=== PATIENT | male | born 1970 | race American Indian/Alaskan Native ===

== ENCOUNTER 2016-12-30 11:58 | Emergency (ER) | payer MEDICAID ==
--- NOTE | 2016-12-30 14:08 | Emergency Department Report ---
ED General Adult HPI - General Chief complaint: Skin Rash Stated complaint: RASH Time Seen by Provider: 12/30/16 13:43 Source: patient Mode of arrival: Ambulatory Limitations: No Limitations - History of Present Illness Initial comments: PT c/o rash to his groin x 2 weeks. PT states the rash itches all the time. PT states he tried to dry out the rash with rubbing alcohol and peroxide. PT states he tried using an otc antifungal cream for 2-3 days. PT states the fungal cream helped the itching for a day but did not clear up the rash, so he stopped using it. PT denies having this rash before. PT denies close contacts with rash MD Complaint: rash Onset/Timin -: Gradual, week(s) Location: genitals Quality: constant, other (itching ) Improves with: none Associated Symptoms: denies: fever/chills, loss of appetite, nausea/vomiting - Related Data Home Medications Medication Instructions Recorded Confirmed Last Taken Gabapentin [Neurontin] 100 mg PO Q8HR 10/13/15 02/28/16 10/13/15 yes Previous Rx's Medication Instructions Recorded Last Taken Type Nystatin [Nystop Powder] 1 applicatio TP TID 14 Days 12/30/16 Unknown Rx hydrOXYzine PAMOATE [Vistaril] 25 mg PO Q6HR PRN #12 capsule 12/30/16 Unknown Rx Allergies Allergy/AdvReac Type Severity Reaction Status Date / Time nalbuphine HCl [From Nubain] Allergy Vomiting Verified 05/15/13 18:48 ED Review of Systems ROS: Stated complaint: RASH Other details as noted in HPI Comment: All other systems reviewed and negative Constitutional: denies: chills, fever Gastrointestinal: denies: abdominal pain, nausea, vomiting Skin: rash, change in color ED Past Medical Hx - Past Medical History Previous Medical History?: Yes Hx Hypertension: No Hx CVA: No Hx Heart Attack/AMI: No Hx Congestive Heart Failure: No Hx Diabetes: No Hx Deep Vein Thrombosis: No Hx Pulmonary Embolism: No Hx GERD: Yes (gastric ulcers) Hx Liver Disease: No Hx Renal Disease: No Hx Sickle Cell Disease: No Hx Arthritis: Yes Hx Headaches / Migraines: Yes (MIGRAINES) Hx Seizures: No Hx Kidney Stones: No Hx Psychiatric Treatment: No Hx Asthma: No Hx COPD: No Hx Tuberculosis: No Hx Dementia: No Hx HIV: No Additional medical history: Lumbar neuropathy. sciatica. Mild scoliosis - Surgical History Past Surgical History?: Yes Hx Coronary Stent: No Hx Open Heart Surgery: No Hx Pacemaker: No Hx Internal Defibrillator: No Hx Cholecystectomy: No Hx Appendectomy: No Hx Breast Surgery: No Additional Surgical History: right foot surgery. Bilateral hernia repair - Social History Smoking Status: Current Every Day Smoker Substance Use Type: Alcohol - Medications Home Medications: Home Medications Medication Instructions Recorded Confirmed Last Taken Type Gabapentin [Neurontin] 100 mg PO Q8HR 10/13/15 02/28/16 10/13/15 History yes Nystatin [Nystop Powder] 1 applicatio TP TID 14 Days 12/30/16 Unknown Rx hydrOXYzine PAMOATE [Vistaril] 25 mg PO Q6HR PRN #12 capsule 12/30/16 Unknown Rx ED Physical Exam - General Limitations: No Limitations General appearance: alert, in no apparent distress - Head Head exam: Present: atraumatic, normocephalic, normal inspection - Eye Eye exam: Present: normal appearance. Absent: conjunctival injection - ENT ENT exam: Present: normal exam, normal external ear exam - Neck Neck exam: Present: normal inspection, full ROM - Respiratory Respiratory exam: Absent: respiratory distress - Cardiovascular Cardiovascular Exam: Present: regular rate, normal rhythm - GI/Abdominal GI/Abdominal exam: Present: soft, hernia (L inguinal swelling, soft, reduable, not ttp ). Absent: tenderness - External exam: Present: erythema (to thighs and scrotum ), other (no vesicles or ulceres ) - Extremities Exam Extremities exam: Present: normal inspection, full ROM - Back Exam Back exam: Present: normal inspection - Neurological Exam Neurological exam: Present: alert, oriented X3 - Psychiatric Psychiatric exam: Present: normal affect, normal mood - Skin Skin exam: Present: warm, dry, intact, erythema ED Course Vital Signs 12/30/16 12/30/16 12:23 14:23 Temperature 97.5 F L Pulse Rate 67 72 Respiratory 16 16 Rate Blood Pressure 126/78 Blood Pressure 120/66 [Right] O2 Sat by Pulse 100 100 Oximetry - Reevaluation(s) Reevaluation #1: 12/30/16 14:14 PT aware of dx and plan of care. PT aware that antifungals typically need 2 weeks to treat rash. - Pulse Oximetry Interpretation Digit-Finger Initial Pulse Oximetry Readin Actions Taken: none ED Medical Decision Making - Differential Diagnosis tinea, hernia Critical Care Time: No Critical care attestation.: If time is entered above; I have spent that time in minutes in the direct care of this critically ill patient, excluding procedure time. ED Disposition Clinical Impression: Jock itch, Inguinal mass Disposition: DISCHARGED TO HOME OR SELFCARE Is pt being admited?: No Does the pt Need Aspirin: No Condition: Stable Instructions: Inguinal Hernia (ED), Jock Itch (ED) Additional Instructions: Follow up with PCP in 3-5 days Follow up with surgeon for her hernia Use the anti fungal powder for 2 weeks No driving or ETOH after taking Vistaril Prescriptions: hydrOXYzine PAMOATE [Vistaril] 25 mg PO Q6HR PRN #12 capsule PRN Reason: Itching Nystatin [Nystop Powder] 1 applicatio TP TID 14 Days Referrals: RUDOLPH HAMMONDS MD [Staff Physician] - 3-5 Days LINDA OTT MD, PHD [Staff Physician] - 3-5 Days PRIMARY CARE, [Primary Care Provider] - 3-5 Days Time of Disposition: 14:17
[2016-12-30 14:23] VITALS: BP 120/66
== END 2016-12-30 14:24 | disposition home or self-care (01) ==
LOC: ED 11:58
DX: B35.6 Tinea cruris (principal); R19.00 Intra-abdominal and pelvic swelling, mass and lump, unspecified site; K21.9 Gastro-esophageal reflux disease without esophagitis; G43.909 Migraine, unspecified, not intractable, without status migrainosus; F17.200 Nicotine dependence, unspecified, uncomplicated
CPT/HCPCS: 99282

== ENCOUNTER 2017-03-04 09:32 | Emergency (ER) | payer MEDICAID ==
[2017-03-04] MEDS ORDERED: FUL-GLO OP ONE ×2 (11:34→11:36)
[2017-03-04] MEDS ORDERED: BSS ONE (11:36)
[2017-03-04] MEDS ORDERED: TETRACAINE 0.5% ONE (11:36)
[2017-03-04] MEDS ORDERED: TETRACAINE 0.5% OU ONE (11:40)
--- NOTE | 2017-03-04 12:02 | Emergency Department Report ---
Entered by ROSA OAKES, acting as scribe for LORY LAWLER NP. Eye Injury/Foreign Body - HPI Duration: 2 Days Eye Location: Right Severity: Moderate Tetanus Status: Up to Date (1 year ago) Eye Symptoms: Eye Pain: Yes (right eye), Blurred Vision: Yes (right eye), Eye Redness: Yes (right eye), Grinding/Hammering Metal: No, Used Eye Protection: No , Contact Lens Use: No, Recalls Injury: No, Photophobia: No Other History: 47 year old male with no PMHx presents to the ED c/o right eye pain and burning for 2 days. Patient states that he was cleaning his car and believes foregin substances got into his right eye. Patient rates 8/10 in severity. Paitent's assoicated symptoms include irriation, blurry vision, and erythema to right eye but denies, injury, visual disturbance, or pus/drainage. Patient denies fever, chest pain, SOB, headahce, chills, ear pain. Pt is UTD with Tetanus. ED Review of Systems ROS: Stated complaint: RT EYE PAIN Other details as noted in HPI Comment: All other systems reviewed and negative Constitutional: denies: chills, diaphoresis, fever, weakness Eyes: eye pain (right), other (Erythema and watery ) ENT: denies: ear pain, throat pain Respiratory: denies: cough, shortness of breath, wheezing Cardiovascular: denies: chest pain, palpitations Gastrointestinal: denies: abdominal pain, nausea, diarrhea Musculoskeletal: denies: back pain, joint swelling, arthralgia Skin: denies: rash, lesions Neurological: headache. denies: weakness, paresthesias ED Past Medical Hx - Past Medical History Previous Medical History?: Yes Hx Hypertension: No Hx CVA: No Hx Heart Attack/AMI: No Hx Congestive Heart Failure: No Hx Diabetes: No Hx Deep Vein Thrombosis: No Hx Pulmonary Embolism: No Hx GERD: Yes (gastric ulcers) Hx Liver Disease: No Hx Renal Disease: No Hx Sickle Cell Disease: No Hx Arthritis: Yes Hx Headaches / Migraines: Yes (MIGRAINES) Hx Seizures: No Hx Kidney Stones: No Hx Psychiatric Treatment: No Hx Asthma: No Hx COPD: No Hx Tuberculosis: No Hx Dementia: No Hx HIV: No Additional medical history: Lumbar neuropathy. sciatica. Mild scoliosis - Surgical History Past Surgical History?: Yes Hx Coronary Stent: No Hx Open Heart Surgery: No Hx Pacemaker: No Hx Internal Defibrillator: No Hx Cholecystectomy: No Hx Appendectomy: No Hx Breast Surgery: No Additional Surgical History: right foot surgery. Bilateral hernia repair - Social History Smoking Status: Current Every Day Smoker Substance Use Type: Alcohol - Medications Home Medications: Home Medications Medication Instructions Recorded Confirmed Last Taken Type Gabapentin [Neurontin] 100 mg PO Q8HR 10/13/15 02/28/16 10/13/15 History yes Nystatin [Nystop Powder] 1 applicatio TP TID 14 Days 12/30/16 Unknown Rx hydrOXYzine PAMOATE [Vistaril] 25 mg PO Q6HR PRN #12 capsule 12/30/16 Unknown Rx Cetirizine HCl [ZyrTEC] 10 mg PO BIDWM #30 capsule 03/04/17 Unknown Rx Polymyxin B Sulf/Trimethoprim 1 drop OP Q3HR #5 ml 03/04/17 Unknown Rx [Polytrim Eye Drops 76948dbzia/0.1%] Eye Injury Exam - Exam General: Vital signs noted. No distress. Alert and acting appropriately. - Visual Acuity Left Vision Acuity Degree: 20/40 Eye Exam: Left Fluorescein Uptake (slit lamp), Right Injection, Right Mucous Discharge, Right Purulent Discharge, Right Photophobia, Both EOMI, Neither Chemosis, Neither Abnormal Pupil, Neither Eye Foreign Body, Neither Lid Foreign Body, Neither Corneal Edema Exam: IOP : 8 rigth eye , globe is soft non tender , corneal abrasion noted at 5 0'0clock less than 1 cm ED Course Vital Signs 03/04/17 09:41 Temperature 97.6 F Pulse Rate 72 Respiratory 18 Rate Blood Pressure 104/72 O2 Sat by Pulse 97 Oximetry ED Medical Decision Making - Medical Decision Making pt is a 47 y/o aam s/p " I scratched my eye yesterday while cleaning out my care, complains of photophobia burning itching redness clear yellow discharge, exam as noted IOP via tonopen: 8, noted corneal abrasions conjunctivea injection will tx with polytrim opthal, and follow up with ophtalmology ,pt verbalized agreement and understanding of same, Critical care attestation.: If time is entered above; I have spent that time in minutes in the direct care of this critically ill patient, excluding procedure time. ED Disposition Clinical Impression: Corneal abrasion Qualifiers: Encounter type: initial encounter Laterality: right Qualified Code(s): S05.01XA - Injury of conjunctiva and corneal abrasion without foreign body, right eye, initial encounter Conjunctivitis Qualifiers: Conjunctivitis type: acute Acute conjunctivitis type: bacterial Laterality: right Qualified Code(s): H10.31 - Unspecified acute conjunctivitis, right eye Disposition: DC- TO HOME OR SELFCARE Is pt being admited?: No Does the pt Need Aspirin: No Condition: Good Instructions: Corneal Abrasion (ED), Conjunctivitis (ED) Additional Instructions: follow up with opthalmology as directed, [facility], , [address] [place] [address], [address] [place] [id number] Prescriptions: Cetirizine HCl [ZyrTEC] 10 mg PO BIDWM #30 capsule Polymyxin B Sulf/Trimethoprim [Polytrim Eye Drops [id number]/0.1%] 1 drop OP Q3HR #5 ml Referrals: PRIMARY CARE, [Primary Care Provider] - 3-5 Days Forms: Work/School Release Form(ED) Time of Disposition: 12:02 This documentation as recorded by the VIOLETTE mullins PEARL,accurately reflects the service I personally performed and the decisions made by ,LORY LAWLER, EDSON.
[2017-03-04 12:11] VITALS: BP 124/74
== END 2017-03-04 12:16 | disposition home or self-care (01) ==
LOC: ED 09:32
DX: S05.01XA Injury of conjunctiva and corneal abrasion without foreign body, right eye, initial encounter (principal); H10.31 Unspecified acute conjunctivitis, right eye; G43.909 Migraine, unspecified, not intractable, without status migrainosus; K21.9 Gastro-esophageal reflux disease without esophagitis; F17.200 Nicotine dependence, unspecified, uncomplicated; X58.XXXA Exposure to other specified factors, initial encounter; Y93.E9 Activity, other interior property and clothing maintenance; Y99.9 Unspecified external cause status; Y92.89 Other specified places as the place of occurrence of the external cause
CPT/HCPCS: 99283

== ENCOUNTER 2017-06-02 06:51 | Emergency (ER) | payer MEDICAID ==
[2017-06-02 08:02] LABS: Basophils % (Auto) 1.3 % (0.0-1.8); Eosinophils % (Auto) 0.9 % (0.0-4.3); Hematocrit 41.8 % (35.5-45.6); Hemoglobin 14.1 gm/dl (11.8-15.2); Mean Corpuscular HGB Conc 34 % (32-34); Mean Corpuscular Hemoglobin 28 pg (28-32); Mean Corpuscular Volume 81 fl (84-94); Platelet Count 253 K/mm3 (140-440); Red Blood Count 5.14 M/mm3 (3.65-5.03); White Blood Count 9.5 K/mm3 (4.5-11.0)
[2017-06-02 08:16] LABS: Alanine Aminotransferase 9 units/L (7-56); Albumin 4.1 g/dL (3.9-5); Albumin/Globulin Ratio 1.6 %; Alkaline Phosphatase 90 units/L (35-129); Anion Gap 15 mmol/L; BUN/Creatinine Ratio 12.22; Blood Urea Nitrogen 11 mg/dL (9-20); Calcium 8.9 mg/dL (8.4-10.2); Carbon Dioxide 29 mmol/L (22-30); Chloride 98.3 mmol/L (98-107); Glucose 94 mg/dL (75-100); Lipase 11 units/L (13-60); Potassium 4.1 mmol/L (3.6-5.0); Sodium 138 mmol/L (137-145); Total Protein 6.7 g/dL (6.3-8.2)
[2017-06-02 16:19] LABS: Bilirubin,Urine NEG (Negative); Blood,Urine NEG (Negative); Ketones,Urine NEG (Negative); Leukocyte Esterase,Urine NEG (Negative); Nitrite,Urine NEG (Negative); Protein,Urine <15 mg/dL mg/dL (Negative); WBC,Urine < 1.0 /HPF (0.0-6.0)
--- NOTE | 2017-06-02 21:30 | Emergency Department Report ---
HPI - General Chief Complaint: Abdominal Pain Time Seen by Provider: 06/02/17 20:28 - HPI HPI: This is a 47-year-old [place] male who presents to the emergency department with complaint of left groin pain and swelling that he believes is his hernia. He has a history of a right and left-sided hernia. The left side was the one that was surgically repaired with mesh. However today he laid down to rest, for the first time in a few days, and all of a sudden he got swelling in that left groin that felt consistent with a hernia. He did not take anything for her symptoms prior to presentation. He does not have any trouble with bowel or bladder. He says that he has not had this issue for many years. The swelling appeared to resolve and/or hernia reduced, upon presentation to the emergency department. No recent travel or sick contacts at home. ED Past Medical Hx - Past Medical History Hx Hypertension: No Hx CVA: No Hx Heart Attack/AMI: No Hx Congestive Heart Failure: No Hx Diabetes: No Hx Deep Vein Thrombosis: No Hx Pulmonary Embolism: No Hx GERD: Yes (gastric ulcers) Hx Liver Disease: No Hx Renal Disease: No Hx Sickle Cell Disease: No Hx Arthritis: Yes Hx Headaches / Migraines: Yes (MIGRAINES) Hx Seizures: No Hx Kidney Stones: No Hx Psychiatric Treatment: No Hx Asthma: No Hx COPD: No Hx Tuberculosis: No Hx Dementia: No Hx HIV: No Additional medical history: Lumbar neuropathy. sciatica. Mild scoliosis - Surgical History Hx Coronary Stent: No Hx Open Heart Surgery: No Hx Pacemaker: No Hx Internal Defibrillator: No Hx Cholecystectomy: No Hx Appendectomy: No Hx Breast Surgery: No Additional Surgical History: right foot surgery. Bilateral hernia repair - Social History Smoking Status: Current Every Day Smoker - Medications Home Medications: Home Medications Medication Instructions Recorded Confirmed Last Taken Type Gabapentin [Neurontin] 100 mg PO Q8HR 10/13/15 02/28/16 10/13/15 History yes Nystatin [Nystop Powder] 1 applicatio TP TID 14 Days 12/30/16 Unknown Rx hydrOXYzine PAMOATE [Vistaril] 25 mg PO Q6HR PRN #12 capsule 12/30/16 Unknown Rx Cetirizine HCl [ZyrTEC] 10 mg PO BIDWM #30 capsule 03/04/17 Unknown Rx Polymyxin B Sulf/Trimethoprim 1 drop OP Q3HR #5 ml 03/04/17 Unknown Rx [Polytrim Eye Drops 43072vucrh/0.1%] HYDROcodone/APAP 5-325 [[place] 1 each PO Q6HR PRN #10 tablet 06/02/17 Unknown Rx 5/325] ED Review of Systems ROS: Stated complaint: ABD PAIN Other details as noted in HPI Comment: All other systems reviewed and negative Constitutional: denies: chills, fever Eyes: denies: eye pain, eye discharge, vision change ENT: denies: ear pain, throat pain Respiratory: denies: cough, shortness of breath, wheezing Cardiovascular: denies: chest pain, palpitations Gastrointestinal: abdominal pain. denies: nausea, vomiting Genitourinary: denies: dysuria, discharge, testicular pain, testicular mass Musculoskeletal: denies: back pain, joint swelling, arthralgia Skin: denies: rash, lesions Neurological: denies: headache, weakness, paresthesias Physical Exam - Physical Exam Vital Signs: Vital Signs 06/02/17 06/02/17 06/02/17 07:22 15:43 15:59 Temperature 97.9 F 97.7 F Pulse Rate 75 85 Respiratory 18 16 18 Rate Blood Pressure 118/83 Blood Pressure 118/83 116/78 [Right] O2 Sat by Pulse 98 98 98 Oximetry Physical Exam: GENERAL: The patient is well-developed well-nourished. HENT: Normocephalic. Atraumatic. Patient has moist mucous membranes. EYES: Extraocular motions are intact. Pupils equal reactive to light bilaterally. NECK: Supple. Trachea is midline. CHEST/LUNGS: Clear to auscultation. There is no respiratory distress noted. HEART/CARDIOVASCULAR: Regular. There is no tachycardia. There is no gallop rub or murmur. ABDOMEN: Abdomen is soft, nontender. Patient has normal bowel sounds. There is no abdominal distention. : There is no tenderness to palpation or swelling of the scrotum or testicles. There is some mild palpable swelling to the left groin consistent with a direct hernia but it appears to have reduced. SKIN: Skin is warm and dry. NEURO: The patient is awake, alert, and oriented. The patient is cooperative. The patient has no focal neurologic deficits. The patient has normal speech and gait. MUSCULOSKELETAL: There is no tenderness or deformity. There is no limitation range of motion. There is no evidence of acute injury. ED Course Vital Signs 06/02/17 06/02/17 06/02/17 07:22 15:43 15:59 Temperature 97.9 F 97.7 F Pulse Rate 75 85 Respiratory 18 16 18 Rate Blood Pressure 118/83 Blood Pressure 118/83 116/78 [Right] O2 Sat by Pulse 98 98 98 Oximetry ED Medical Decision Making - Lab Data Result diagrams: 06/02/17 07:42 06/02/17 07:42 - Radiology Data Radiology results: image reviewed interpreted by me: Abdominal x-ray shows nonspecific nonobstructive bowel gas. - Medical Decision Making 47-year-old male presents with 1 day of swelling to the left side of the groin that appears consistent with a hernia. He has a history of previous direct hernias but had that left side surgically repaired with mesh. When I first see the patient I can see the area where there was some swelling but there is no palpable hernia. However are to discharge, the patient stands up and then the hernia does pop out but once again it is reducible. His labs are unremarkable. Vital signs stable including afebrile. Abdominal x-ray does not show any signs of obstruction. Discussed with the patient about trying to decrease intra -abdominal pressure. He understands that if the hernia is not reducible, he has intractable abdominal pain or groin pain out of proportion, or with any acute distress, that he needs to return to the emergency department for reevaluation. Otherwise he was given a referral for general surgery to establish care as he may need outpatient surgical intervention. - Differential Diagnosis direct hernia, indirect hernia, colitis, constipation Critical Care Time: No Critical care attestation.: If time is entered above; I have spent that time in minutes in the direct care of this critically ill patient, excluding procedure time. ED Disposition Clinical Impression: Inguinal hernia Qualifiers: Obstruction and gangrene presence: without obstruction or gangrene Laterality: unilateral Recurrence: recurrent Qualified Code(s): K40.91 - Unilateral inguinal hernia, without obstruction or gangrene, recurrent Disposition: DC-01 TO HOME OR SELFCARE Is pt being admited?: No Condition: Stable Instructions: Inguinal Hernia (ED) Additional Instructions: Please follow-up with your primary care physician. I have given a referral for a local surgeon, Dr. Odom, to follow up regarding your hernia, history of hernia repair and to establish care. If this continues to be a problem for you then you may want to get it electively fixed. However if the hernia once again pops out or causes swelling, and it cannot be reduced or pushed back in or you continue to have severe pain, he needs to return to the emergency department immediately for reevaluation. You have been prescribed a medication that is sedating and therefore should not be taken prior to driving, working, and responsible for children and in no way should be mixed with alcohol of any quantity. Try to decrease any intra-abdominal pressure. Take stool softener so that you do not have to strain when having a bowel movement. Do not lift anything greater than 5 or 10 pounds. Prescriptions: HYDROcodone/APAP 5-325 [[place]iftwood 5/325] 1 each PO Q6HR PRN #10 tablet PRN Reason: Pain Referrals: PRIMARY CARE, [Primary Care Provider] - 3-5 Days LORNA ODOM DO [Staff Physician] - 3-5 Days Forms: AMA Form Time of Disposition: 21:46
[2017-06-02 22:09] VITALS: BP 115/71
--- NOTE | 2017-06-02 22:37 | XRay Report ---
FINAL REPORT EXAM: XR ABDOMEN 2V HISTORY: Abd pain TECHNIQUE: Supine and upright views of the abdomen. PRIORS: None. FINDINGS: There is a moderate amount of gas throughout abdomen in small bowel and colon. There are no abnormally dilated loops of bowel. There is no evidence of ileus or obstruction. There are no suspicious calcifications. The bones and soft tissues are unremarkable. IMPRESSION: Nonspecific bowel gas pattern. Moderate amount of gas throughout small bowel and colon. Question mild ileus.
== END 2017-06-02 22:00 | disposition home or self-care (01) ==
LOC: ED 06:51
DX: K40.91 Unilateral inguinal hernia, without obstruction or gangrene, recurrent (principal); K25.9 Gastric ulcer, unspecified as acute or chronic, without hemorrhage or perforation; M19.90 Unspecified osteoarthritis, unspecified site; G43.909 Migraine, unspecified, not intractable, without status migrainosus; F17.200 Nicotine dependence, unspecified, uncomplicated; Z88.8 Allergy status to other drugs, medicaments and biological substances
CPT/HCPCS: 36415; 74020; 80053; 81001; 83690; 85025

== ENCOUNTER 2017-09-09 10:34 | Day surgery (SDC) | payer MEDICAID ==
[~2017-09-09 10:34] MED LIST: ROBINUL ONE; XYLOCAINE MPF 2% ONE
[2017-09-09] MEDS ORDERED: NACL 0.9% 1000 ML 1,000 ML IV SCH (11:00)
--- NOTE | 2017-09-09 12:36 | Anesthesia Consultation ---
Anesthesia Consult and Med Hx Date of service: 09/09/17 - Airway Anesthetic Teeth Evaluation: Good ROM Head & Neck: Adequate Mental/Hyoid Distance: Adequate Mallampati Class: Class II Intubation Access Assessment: Probably Good - Pulmonary Exam CTA: Yes - Cardiac Exam Cardiac Exam: RRR - Pre-Operative Health Status ASA Pre-Surgery Classification: ASA2 Proposed Anesthetic Plan: MAC - Pulmonary Hx Smoking: Yes (CIGARETTES 1 PPD X 37 YRS) Hx Asthma: No COPD: No Hx Sleep Apnea: No - Cardiovascular System Hx Hypertension: No Hx Heart Attack/AMI: No Hx Pacemaker: No Hx Internal Defibrillator: No - Central Nervous System Hx Seizures: No Hx Back Pain: Yes Hx Psychiatric Problems: Yes - Endocrine Hx Renal Disease: No Hx Liver Disease: No - Hematic Hx Sickle Cell Disease: No - Other Systems Hx Cancer: No
--- NOTE | 2017-09-09 12:36 | Anesthesia Day of Surgery ---
Anesthesia Day of Surgery - Day of Surgery Patient Examined: Yes Patient H&P Reviewed: Yes Patient is NPO: Yes
[2017-09-09] MEDS ORDERED: DIPRIVAN 10 MG/ML IV ONE ×2 (12:38)
[2017-09-09] MEDS ORDERED: WATER FOR IRRIG STERILE IR ONE (12:43)
--- NOTE | 2017-09-09 13:09 | Operative Report ---
Operative Report Operative Report: Date of procedure: 09/09/2017 Procedure: Esophagogastroduodenoscopy with multiple mucosal biopsies Attending physician: Merrill Suero MD Anodize Machine Operator: Merrill Suero MD Indication: Patient is a 47-year-old male who presents history of epigastric pain dyspepsia with early satiety and nausea vomiting. Patient has underlying past history of peptic ulcer disease and Helicobacter pylori gastritis which has been treated. This endoscopy is done given patient's underlying symptoms to evaluate him further and also for surveillance for residual gastric ulcer.. Consent: Informed consent was obtained after advising the patient and family regarding nature of this procedure, its indications, potential benefits as well as possible complications including but not limited to bleeding perforation and adverse reaction to medication, infection as well as other cardiopulmonary complications. An informed written and verbal consent was then obtained after due opportunity was provided for questions and answers. Monitoring: Patient was monitored continuously with pulse oximetry and electrocardiographic recordings as well as blood pressure recordings. Vital signs remained stable throughout this procedure with no untoward events. Preoperative assessment: Patient was assessed immediately prior to this procedure for capacity to tolerate monitored anesthesia care and moderate sedation as well as general anesthesia. Patient's ASA classification is 2, Mallampati class is 2, Hyomental distance is 3. Instrument: Appsembler video endoscope. Medications: Propofol, given intravenously in divided doses. For details please refer to anesthesia records. Description of procedure: Patient was placed in the left lateral decubitus position after achieving sedation, the endoscope was introduced into the esophagus under direct vision. It was then advanced beyond the esophagus into the stomach and then beyond the stomach into the duodenum and to the second portion of the duodenum. It was subsequently withdrawn with careful inspection of all mucosal surfaces with the following findings. Findings: The Z line was irregular at 38 cm. There was a 2 cm sliding hiatal hernia seen on entry into the stomach. There was erythema and edema with erosions seen in the gastric antrum. Biopsies of the antrum were obtained to rule out gastritis. The pyloric channel was open. The duodenal bulb was deformed. There was a 1.5 cm clean-based ulcer in the duodenal bulb that had heaped up edges with complete deformity of the duodenal bulb. Biopsies were obtained from around this area to rule out duodenitis and also rule out underlying neoplasm. The endoscope was completely removed after the examination. Impression: Irregular Z line. Hiatal hernia. Mucosal changes suggestive of gastritis, with gastric antral erythema and erosions and edema. Deformity of the duodenal bulb. Duodenal bulb ulcer with heaped up edges. Plan: Follow pathology report. Intensify treatment high-dose proton pump inhibitors. The duodenal biopsy was obtained to rule out underlying malignancy. An additional period of 8-12 weeks should be used to treat patient with high-dose proton pump inhibitors. After this time, given the underlying endoscopic appearance, a repeat endoscopy should be done to further assess patient. Additional recommendations will be made depending on the endoscopic findings.
--- NOTE | 2017-09-09 13:11 | Discharge Summary ---
Short Stay Discharge Plan Activity: advance as tolerated Weight Bearing Status: Weight Bear as Tolerated Diet: regular Follow up with: CINDY YU MD [Primary Care Provider] - 7 Days
[2017-09-09 13:36] VITALS: BP 130/81
--- NOTE | 2017-09-09 15:25 | Post Anesthesia Evaluation ---
- Post Anesthesia Evaluation Patient Participated: Yes Airway Patent: Yes Stable Respiratory Function: Yes Nausea/Vomiting: No Temp > 96.8F: Yes Pain Manageable: Yes Adequeate Hydration: Yes Anesthesia Complications: No Block Receding Appropriately: Not Applicable Patient on Ventilator: No
== END 2017-09-09 10:35 | disposition home or self-care (01) ==
LOC: GIO 10:34
PROVIDERS: ATTEND Internal Medicine Gastroenterology
DX: K29.80 Duodenitis without bleeding (principal); K26.9 Duodenal ulcer, unspecified as acute or chronic, without hemorrhage or perforation; K29.50 Unspecified chronic gastritis without bleeding; B96.81 Helicobacter pylori [H. pylori] as the cause of diseases classified elsewhere; K44.9 Diaphragmatic hernia without obstruction or gangrene; K21.9 Gastro-esophageal reflux disease without esophagitis; K27.9 Peptic ulcer, site unspecified, unspecified as acute or chronic, without hemorrhage or perforation; F17.210 Nicotine dependence, cigarettes, uncomplicated; Z98.890 Other specified postprocedural states; Z88.6 Allergy status to analgesic agent
CPT/HCPCS: 43239; 88305; 88342; J2704; J7030

== ENCOUNTER 2017-10-20 03:46 | Emergency (ER) | payer MEDICAID ==
[2017-10-20 04:01] VITALS: BP 121/87
[2017-10-20 04:43] LABS: Basophils # (Auto) 0.1 K/mm3 (0.0-0.1); Eosinophils # (Auto) 0.2 K/mm3 (0.0-0.4); Eosinophils % (Auto) 2.5 % (0.0-4.3); Hematocrit 42.3 % (35.5-45.6); Hemoglobin 13.8 gm/dl (11.8-15.2); Lymphocytes # (Auto) 3.5 K/mm3 (1.2-5.4); Lymphocytes % (Auto) 41.4 % (13.4-35.0); Mean Corpuscular HGB Conc 33 % (32-34); Mean Corpuscular Hemoglobin 27 pg (28-32); Mean Corpuscular Volume 83 fl (84-94); Monocytes # (Auto) 0.9 K/mm3 (0.0-0.8); Monocytes % (Auto) 10.8 % (0.0-7.3); Platelet Count 269 K/mm3 (140-440); Red Blood Count 5.12 M/mm3 (3.65-5.03); Red Cell Distribution Width 14.8 % (13.2-15.2)
[2017-10-20 04:51] LABS: Alanine Aminotransferase 10 units/L (7-56); Albumin 3.8 g/dL (3.9-5); BUN/Creatinine Ratio 14; Blood Urea Nitrogen 11 mg/dL (9-20); Calcium 8.7 mg/dL (8.4-10.2); Hemolysis Index 11
[2017-10-20] MEDS ORDERED: CATAPRES PO ONE (10:37)
[2017-10-20] MEDS ORDERED: ALUM-MAG HYDROX-SIMETH 200-200-20MG/5ML PO ONE (10:43)
[2017-10-20] MEDS ORDERED: NORCO 7.5/325 PO ONE (10:43)
[2017-10-20] MEDS ORDERED: ZOFRAN ODT PO ONE (10:44)
--- NOTE | 2017-10-20 10:47 | Emergency Department Report ---
[facility] Doc - Documentation Documentation: Patient is a 47-year-old male who is presenting with epigastric pain. Patient states pain is 8 out of 10 and does not radiate. Patient had EGD done approximately 3 weeks ago and was told that he has ulcers as well as a hiatal hernia. Patient also was called and stated that he is now being treated for H. pylori as well. Patient states pain is progressively worsening instead of getting better. Patient states pain is improved slightly with eating but then comes right back within 5 minutes. Patient denies fevers nausea vomiting at this time. Patient's chemistries CBC are relatively within normal limits a will add a lipase. Patient also will have a CT abdomen pelvis with oral contrast to delineate any other abnormalities present.
--- NOTE | 2017-10-20 11:33 | Emergency Department Report ---
ED Abdominal Pain HPI - General Chief Complaint: Abdominal Pain Stated Complaint: ABD PAIN Time Seen by Provider: 10/20/17 10:35 Source: patient, family Mode of arrival: Ambulatory Limitations: No Limitations - History of Present Illness Initial Comments: Patient is a 47-year-old male who is presenting with epigastric pain. Patient states pain is 8 out of 10 and does not radiate. Patient had EGD done approximately 3 weeks ago and was told that he has ulcers as well as a hiatal hernia. Patient also was called and stated that he is now being treated for H. pylori as well. Patient states pain is progressively worsening instead of getting better. Patient states pain is improved slightly with eating but then comes right back within 5 minutes. Patient denies fevers nausea vomiting at this time. Patient has GI doctor and is pending currently being treated for H. pylori and stomach ulcer. Denies any back pain. Pain to lower abdomen is 8 out of 10 and crampy. Comes and goes. He was started on medication for H. pylori today. Denies any diarrhea. MD Complaint: abdominal pain Onset/Timin -: week(s) Location: epigastric Radiation: none Migration to: no migration Severity scale (0 -10): 9 Quality: cramping Consistency: intermittent Improves With: eating Context: other (patient with H. pylori currently being treated) Associated Symptoms: denies other symptoms Treatments Prior to Arrival: antacids, other (medication for H. pylori) - Related Data Home Medications Medication Instructions Recorded Confirmed Last Taken Gabapentin [Neurontin] 100 mg PO Q8HR 10/13/15 02/28/16 10/13/15 yes Omeprazole 20 mg PO 08/20/17 08/09/17 Previous Rx's Medication Instructions Recorded Last Taken Type Nystatin [Nystop Powder] 1 applicatio TP TID 14 Days bottle 12/30/16 Unknown Rx hydrOXYzine PAMOATE [Vistaril] 25 mg PO Q6HR PRN #12 capsule 12/30/16 08/09/17 Rx Cetirizine HCl [ZyrTEC] 10 mg PO BIDWM #30 capsule 03/04/17 Unknown Rx Polymyxin B Sulf/Trimethoprim 1 drop OP Q3HR #5 ml 03/04/17 08/09/17 Rx [Polytrim Eye Drops [id number]/0.1%] HYDROcodone/APAP 5-325 [[place] 1 each PO Q6HR PRN #10 tablet 06/02/17 Unknown Rx 5/325] Allergies Allergy/AdvReac Type Severity Reaction Status Date / Time nalbuphine HCl [From Nubain] Allergy Vomiting Verified 05/15/13 18:48 ED Review of Systems ROS: Stated complaint: ABD PAIN Other details as noted in HPI Comment: All other systems reviewed and negative Constitutional: no symptoms reported Eyes: denies: eye pain, eye discharge ENT: denies: throat pain, congestion Respiratory: no symptoms reported Cardiovascular: denies: chest pain, palpitations, dyspnea on exertion, edema, syncope, paroxysmal nocturnal dyspnea Gastrointestinal: abdominal pain. denies: nausea, vomiting, diarrhea, constipation, hematemesis, melena, hematochezia Genitourinary: denies: urgency, dysuria, frequency, hematuria, discharge Skin: denies: rash Neurological: denies: headache ED Past Medical Hx - Past Medical History Previous Medical History?: Yes Hx Hypertension: No Hx CVA: No Hx Heart Attack/AMI: No Hx Congestive Heart Failure: No Hx Diabetes: No Hx Deep Vein Thrombosis: No Hx Pulmonary Embolism: No Hx GERD: Yes Hx Liver Disease: No Hx Renal Disease: No Hx Sickle Cell Disease: No Hx Arthritis: Yes Hx Headaches / Migraines: Yes (MIGRAINES) Hx Seizures: No Hx Kidney Stones: No Hx Psychiatric Treatment: No Hx Asthma: No Hx COPD: No Hx Tuberculosis: No Hx Dementia: No Hx HIV: No Additional medical history: Lumbar neuropathy. sciatica. Mild scoliosis - Surgical History Past Surgical History?: Yes Hx Coronary Stent: No Hx Open Heart Surgery: No Hx Pacemaker: No Hx Internal Defibrillator: No Hx Cholecystectomy: No Hx Appendectomy: No Hx Breast Surgery: No Additional Surgical History: right foot surgery. Bilateral hernia repair - Family History Family history: hypertension - Social History Smoking Status: Never Smoker Substance Use Type: Alcohol - Medications Home Medications: Home Medications Medication Instructions Recorded Confirmed Last Taken Type Gabapentin [Neurontin] 100 mg PO Q8HR 10/13/15 02/28/16 10/13/15 History yes Nystatin [Nystop Powder] 1 applicatio TP TID 14 Days bottle 12/30/16 Unknown Rx hydrOXYzine PAMOATE [Vistaril] 25 mg PO Q6HR PRN #12 capsule 12/30/16 08/09/17 Rx Cetirizine HCl [ZyrTEC] 10 mg PO BIDWM #30 capsule 03/04/17 Unknown Rx Polymyxin B Sulf/Trimethoprim 1 drop OP Q3HR #5 ml 03/04/17 08/09/17 Rx [Polytrim Eye Drops [id number]/0.1%] HYDROcodone/APAP 5-325 [[place] 1 each PO Q6HR PRN #10 tablet 06/02/17 Unknown Rx 5/325] Omeprazole 20 mg PO 08/20/17 08/09/17 History ED Physical Exam - General Limitations: No Limitations General appearance: alert, in no apparent distress - Head Head exam: Present: atraumatic, normocephalic, normal inspection - Eye Eye exam: Present: normal appearance, PERRL, EOMI. Absent: scleral icterus, conjunctival injection, nystagmus Pupils: Present: normal accommodation - ENT ENT exam: Present: normal exam, normal orophraynx, mucous membranes moist - Neck Neck exam: Present: normal inspection, full ROM, other (no C-spine tenderness). Absent: tenderness, meningismus, lymphadenopathy, thyromegaly - Respiratory Respiratory exam: Present: normal lung sounds bilaterally. Absent: respiratory distress, chest wall tenderness, accessory muscle use - Cardiovascular Cardiovascular Exam: Present: regular rate, normal rhythm, normal heart sounds. Absent: systolic murmur, diastolic murmur - GI/Abdominal GI/Abdominal exam: Present: soft, normal bowel sounds. Absent: distended, tenderness, guarding, rebound, rigid, organomegaly, mass, bruit, pulsatile mass , hernia - Extremities Exam Extremities exam: Present: normal inspection, full ROM, normal capillary refill , other (no clubbing, cyanosis or edema. +2 pulses to all extremities and no neurovascular compromise). Absent: tenderness, pedal edema, joint swelling, calf tenderness - Back Exam Back exam: Present: normal inspection, full ROM, other (ambulates without any difficulties). Absent: tenderness, CVA tenderness (R), CVA tenderness (L), muscle spasm, paraspinal tenderness, vertebral tenderness, rash noted - Neurological Exam Neurological exam: Present: alert, oriented X3, normal gait, reflexes normal. Absent: motor sensory deficit - Psychiatric Psychiatric exam: Present: normal affect, normal mood - Skin Skin exam: Present: warm, dry, intact, normal color. Absent: rash ED Course Vital Signs 10/20/17 03:54 Temperature 97.3 F L Pulse Rate 60 Respiratory 20 Rate Blood Pressure 121/87 O2 Sat by Pulse 100 Oximetry - Reevaluation(s) Reevaluation #1: 10/20/17 14:23 Patient given antacid 30 mL, clonidine 0.1 mg, Zofran 4 mg ODT and 5/325 mg 2 tablets by mouth today. He voiced relief of his pain and said he feels better. Patient able tolerate oral liquids. 10/20/17 14:24 ED Medical Decision Making - Lab Data Result diagrams: 10/20/17 04:11 10/20/17 04:11 Lab Results 10/20/17 10/20/17 10/20/17 Range/Units 04:11 04:11 04:41 WBC 8.5 (4.5-11.0) K/mm3 RBC 5.12 H (3.65-5.03) M/mm3 Hgb 13.8 (11.8-15.2) gm/dl Hct 42.3 (35.5-45.6) % MCV 83 L (84-94) fl MCH 27 L (28-32) pg MCHC 33 (32-34) % RDW 14.8 (13.2-15.2) % Plt Count 269 (140-440) K/mm3 Lymph % (Auto) 41.4 H (13.4-35.0) % [place] % (Auto) 10.8 H (0.0-7.3) % Eos % (Auto) 2.5 (0.0-4.3) % Baso % (Auto) 1.0 (0.0-1.8) % Lymph # 3.5 (1.2-5.4) K/mm3 [place] # 0.9 H (0.0-0.8) K/mm3 Eos # 0.2 (0.0-0.4) K/mm3 Baso # 0.1 (0.0-0.1) K/mm3 Seg Neutrophils % 44.3 (40.0-70.0) % Seg Neutrophils # 3.7 (1.8-7.7) K/mm3 Sodium 138 (137-145) mmol/L Potassium 4.5 (3.6-5.0) mmol/L Chloride 101.5 (98-107) mmol/L Carbon Dioxide 24 (22-30) mmol/L Anion Gap 17 mmol/L BUN 11 (9-20) mg/dL Creatinine 0.8 (0.8-1.5) mg/dL Estimated GFR > 60 ml/min BUN/Creatinine Ratio 14 % Glucose 116 H (75-100) mg/dL Calcium 8.7 (8.4-10.2) mg/dL Total Bilirubin 0.30 (0.1-1.2) mg/dL AST 14 (5-40) units/L ALT 10 (7-56) units/L Alkaline Phosphatase 127 (35-129) units/L Total Protein 6.2 L (6.3-8.2) g/dL Albumin 3.8 L (3.9-5) g/dL Albumin/Globulin Ratio 1.6 % Lipase 17 (13-60) units/L Urine Color (Yellow) Urine Turbidity (Clear) Urine pH (5.0-7.0) Ur Specific [place] (1.003-1.030) Urine Protein (Negative) mg/dL Urine Glucose (UA) (Negative) mg/dL Urine Ketones (Negative) mg/dL Urine Blood (Negative) Urine Nitrite (Negative) Urine Bilirubin (Negative) Urine Urobilinogen (<2.0) mg/dL Ur Leukocyte Esterase (Negative) Urine WBC (Auto) (0.0-6.0) /HPF Urine RBC (Auto) (0.0-6.0) /HPF Urine Mucus /HPF // Range/Units Unknown WBC (4.5-11.0) K/mm3 RBC (3.65-5.03) M/mm3 Hgb (11.8-15.2) gm/dl Hct (35.5-45.6) % MCV (84-94) fl MCH (28-32) pg MCHC (32-34) % RDW (13.2-15.2) % Plt Count (140-440) K/mm3 Lymph % (Auto) (13.4-35.0) % [place] % (Auto) (0.0-7.3) % Eos % (Auto) (0.0-4.3) % Baso % (Auto) (0.0-1.8) % Lymph # (1.2-5.4) K/mm3 [place] # (0.0-0.8) K/mm3 Eos # (0.0-0.4) K/mm3 Baso # (0.0-0.1) K/mm3 Seg Neutrophils % (40.0-70.0) % Seg Neutrophils # (1.8-7.7) K/mm3 Sodium (137-145) mmol/L Potassium (3.6-5.0) mmol/L Chloride (98-107) mmol/L Carbon Dioxide (22-30) mmol/L Anion Gap mmol/L BUN (9-20) mg/dL Creatinine (0.8-1.5) mg/dL Estimated GFR ml/min BUN/Creatinine Ratio % Glucose (75-100) mg/dL Calcium (8.4-10.2) mg/dL Total Bilirubin (0.1-1.2) mg/dL AST (5-40) units/L ALT (7-56) units/L Alkaline Phosphatase (35-129) units/L Total Protein (6.3-8.2) g/dL Albumin (3.9-5) g/dL Albumin/Globulin Ratio % Lipase (13-60) units/L Urine Color Yellow (Yellow) Urine Turbidity Clear (Clear) Urine pH 5.0 (5.0-7.0) Ur Specific [place] 1.028 (1.003-1.030) Urine Protein <15 mg/dl (Negative) mg/dL Urine Glucose (UA) Neg (Negative) mg/dL Urine Ketones Neg (Negative) mg/dL Urine Blood Neg (Negative) Urine Nitrite Neg (Negative) Urine Bilirubin Neg (Negative) Urine Urobilinogen 2.0 (<2.0) mg/dL Ur Leukocyte Esterase Neg (Negative) Urine WBC (Auto) 2.0 (0.0-6.0) /HPF Urine RBC (Auto) 1.0 (0.0-6.0) /HPF Urine Mucus Few /HPF - Radiology Data Radiology results: report reviewed CT scan of the abdomen and pelvis with by mouth contrast only Critical care attestation.: If time is entered above; I have spent that time in minutes in the direct care of this critically ill patient, excluding procedure time. ED Disposition Clinical Impression: Abdominal pain Qualifiers: Abdominal location: epigastric Qualified Code(s): R10.13 - Epigastric pain Constipation Qualifiers: Constipation type: unspecified constipation type Qualified Code(s): K59.00 - Constipation, unspecified Disposition: DC-01 TO HOME OR SELFCARE Is pt being admited?: No Does the pt Need Aspirin: No Condition: Stable Instructions: Abdominal Pain (ED), Constipation (ED), High Fiber Diet (ED) Additional Instructions: Please take your Dulcolax tablets that you have at home as prescribed by UGI doctor for constipation. Please increase her fluid intake to 2-3 L of water per day. Follow discharge instructions on high fiber diet Please UGI doctor noted that urine emergency room for abdominal pain and was diagnosed with constipation. 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
[2017-10-20 13:36] LABS: Bilirubin,Urine NEG (Negative); Blood,Urine NEG (Negative); Color,Urine Yellow (Yellow); Mucus,Urine FEW /HPF; Nitrite,Urine NEG (Negative); Protein,Urine <15 mg/dL mg/dL (Negative)
--- NOTE | 2017-10-20 13:44 | Cat Scan Report ---
FINAL REPORT EXAM: CT ABDOMEN PELVIS WO CON HISTORY: epigastriuc pain TECHNIQUE: CT examination of the ABDOMEN without IV contrast CT examination of the PELVIS without IV contrast PRIORS: Abdomen radiographs 06/02/2017 FINDINGS: The exam is limited from a paucity of natural intra-abdominal fat, and lack of IV contrast, to separate adjacent organs and structures. The ureters are largely obscured by adjacent soft tissues. Intestinal loops are also difficult to visualize separately. There is misregistration artifact in the mid abdomen, further limiting the examination. Normal noncontrast appearance of the liver, gallbladder, visible adrenals, visible pancreas, and spleen. Normal caliber abdominal aorta with slight calcified atherosclerotic plaque. Normal caliber IVC. No renal calculus or hydronephrosis. Benign-appearing left renal cyst. Ureters obscured. Intact anterior abdominal wall. Grossly normal stomach and duodenum. No small bowel distention in the abdomen and pelvis. No gross pelvic free fluid. Normal-appearing urinary bladder. No focal prostate abnormality. No definite abnormality in the discernible rectum. No abnormality in the visible portion of terminal ileum and appendix. No gross ascites or free air. Prominent stool in ascending and transverse colon, with slight increased caliber, is suggestive of constipation. There may be a component of paralytic ileus. IMPRESSION: The exam is limited from a paucity of natural intra-abdominal fat, and lack of IV contrast, to separate adjacent organs and structures. The ureters are largely obscured by adjacent soft tissues. Intestinal loops are also difficult to visualize separately. Prominent stool and caliber in ascending and transverse colon may be a combination of constipation and paralytic ileus
== END 2017-10-20 17:08 | disposition home or self-care (01) ==
LOC: ED 03:46
DX: R10.13 Epigastric pain (principal); K59.00 Constipation, unspecified; K21.9 Gastro-esophageal reflux disease without esophagitis; M19.90 Unspecified osteoarthritis, unspecified site; G43.909 Migraine, unspecified, not intractable, without status migrainosus; Z88.8 Allergy status to other drugs, medicaments and biological substances
CPT/HCPCS: 36415; 74176; 80053; 81001; 83690; 85025; Q0162

== ENCOUNTER 2018-11-14 09:42 | Emergency (ER) | payer MEDICAID ==
[2018-11-14 09:58] VITALS: BP 117/75
[2018-11-14] MEDS ORDERED: TORADOL IV ONE (11:43)
[2018-11-14] MEDS ORDERED: TYLENOL PO ONE (11:44)
--- NOTE | 2018-11-14 11:45 | Emergency Department Report ---
ED Extremity Problem HPI - General Chief complaint: Back Pain/Injury Stated complaint: LOWER BACK PAIN Time Seen by Provider: 11/14/18 11:38 Source: patient Mode of arrival: Ambulatory Limitations: No Limitations - History of Present Illness Initial comments: 48-year-old male past medical history none presents with complaint of 3 days of worsening right hip pain MD Complaint: extremity pain Onset/Timin -: days(s) Location: right History of Same: No -: Yes arthralgia Severity scale (0 -10): 7 Quality: aching, sharp Consistency: constant Improves with: nothing Worsens with: nothing Associated Symptoms: denies other symptoms - Related Data Home Medications Medication Instructions Recorded Confirmed Last Taken Gabapentin [Neurontin] 100 mg PO Q8HR 10/13/15 02/28/16 10/13/15 yes Omeprazole 20 mg PO 08/20/17 08/09/17 Previous Rx's Medication Instructions Recorded Last Taken Type Nystatin [Nystop Powder] 1 applicatio TP TID 14 Days bottle 12/30/16 Unknown Rx hydrOXYzine PAMOATE [Vistaril] 25 mg PO Q6HR PRN #12 capsule 12/30/16 08/09/17 Rx Cetirizine HCl [ZyrTEC] 10 mg PO BIDWM #30 capsule 03/04/17 Unknown Rx Polymyxin B Sulf/Trimethoprim 1 drop OP Q3HR #5 ml 03/04/17 08/09/17 Rx [Polytrim Eye Drops [id number]/0.1%] HYDROcodone/APAP 5-325 [[place] 1 each PO Q6HR PRN #10 tablet 06/02/17 Unknown Rx 5/325] Allergies Allergy/AdvReac Type Severity Reaction Status Date / Time nalbuphine HCl [From Nubain] Allergy Vomiting Verified 05/15/13 18:48 ED Review of Systems ROS: Stated complaint: LOWER BACK PAIN Other details as noted in HPI ED Past Medical Hx - Past Medical History Hx Hypertension: No Hx CVA: No Hx Heart Attack/AMI: No Hx Congestive Heart Failure: No Hx Diabetes: No Hx Deep Vein Thrombosis: No Hx Pulmonary Embolism: No Hx GERD: Yes Hx Liver Disease: No Hx Renal Disease: No Hx Sickle Cell Disease: No Hx Arthritis: Yes Hx Headaches / Migraines: Yes (MIGRAINES) Hx Seizures: No Hx Kidney Stones: No Hx Psychiatric Treatment: No Hx Asthma: No Hx COPD: No Hx Tuberculosis: No Hx Dementia: No Hx HIV: No Additional medical history: Lumbar neuropathy. sciatica. Mild scoliosis - Surgical History Hx Coronary Stent: No Hx Open Heart Surgery: No Hx Pacemaker: No Hx Internal Defibrillator: No Hx Cholecystectomy: No Hx Appendectomy: No Hx Breast Surgery: No Additional Surgical History: right foot surgery. Bilateral hernia repair - Social History Smoking Status: Never Smoker Substance Use Type: Alcohol - Medications Home Medications: Home Medications Medication Instructions Recorded Confirmed Last Taken Type Gabapentin [Neurontin] 100 mg PO Q8HR 10/13/15 02/28/16 10/13/15 History yes Nystatin [Nystop Powder] 1 applicatio TP TID 14 Days bottle 12/30/16 Unknown Rx hydrOXYzine PAMOATE [Vistaril] 25 mg PO Q6HR PRN #12 capsule 12/30/16 08/09/17 Rx Cetirizine HCl [ZyrTEC] 10 mg PO BIDWM #30 capsule 03/04/17 Unknown Rx Polymyxin B Sulf/Trimethoprim 1 drop OP Q3HR #5 ml 03/04/17 08/09/17 Rx [Polytrim Eye Drops [id number]/0.1%] HYDROcodone/APAP 5-325 [[place] 1 each PO Q6HR PRN #10 tablet 06/02/17 Unknown Rx 5/325] Omeprazole 20 mg PO 08/20/17 08/09/17 History ED Physical Exam - General Limitations: No Limitations ED Course Vital Signs 11/14/18 09:58 Temperature 97.7 F Pulse Rate 77 Respiratory 18 Rate Blood Pressure 117/75 [Right] O2 Sat by Pulse 95 Oximetry Critical care attestation.: If time is entered above; I have spent that time in minutes in the direct care of this critically ill patient, excluding procedure time. ED Disposition Condition: Stable Referrals: SIDNEY NAVARRO MD [Primary Care Provider] - 3-5 Days
--- NOTE | 2018-11-14 11:58 | Emergency Department Report ---
ED Back Pain/Injury HPI - General Chief Complaint: Back Pain/Injury Stated Complaint: LOWER BACK PAIN Time Seen by Provider: 11/14/18 11:38 Source: patient Limitations: No Limitations - History of Present Illness Initial Comments: 48M PMH scoliosis, chronic lower back pain, smoker presents with complaint of acute on chronic lower back pain. Patient denies dysuria or hematuria or increased urinary frequency abdominal pain chest pain palpitations or lower extremity paresthesias. Denies daily alcohol drinking or drug use. Denies any rash. Denies any recent falls or trauma to his lower back. Patient denies any saddle paresthesias MD Complaint: back pain Onset/Timin -: week(s) Similar Symptoms Previously: Yes Place: home Severity: moderate Severity scale (0 -10): 6 Quality: aching Consistency: constant Improves With: none Worsens With: none Associated Symptoms: denies other symptoms - Related Data Home Medications Medication Instructions Recorded Confirmed Last Taken Gabapentin [Neurontin] 100 mg PO Q8HR 10/13/15 02/28/16 10/13/15 yes Omeprazole 20 mg PO 08/20/17 08/09/17 Previous Rx's Medication Instructions Recorded Last Taken Type Nystatin [Nystop Powder] 1 applicatio TP TID 14 Days bottle 12/30/16 Unknown Rx hydrOXYzine PAMOATE [Vistaril] 25 mg PO Q6HR PRN #12 capsule 12/30/16 08/09/17 Rx Cetirizine HCl [ZyrTEC] 10 mg PO BIDWM #30 capsule 03/04/17 Unknown Rx Polymyxin B Sulf/Trimethoprim 1 drop OP Q3HR #5 ml 03/04/17 08/09/17 Rx [Polytrim Eye Drops 21618zuncb/0.1%] HYDROcodone/APAP 5-325 [Sullivan 1 each PO Q6HR PRN #10 tablet 11/14/18 Unknown Rx 5/325] Ondansetron [Zofran Odt] 4 mg PO Q8HR PRN #12 tab.rapdis 11/14/18 Unknown Rx Allergies Allergy/AdvReac Type Severity Reaction Status Date / Time nalbuphine HCl [From Nubain] Allergy Vomiting Verified 05/15/13 18:48 ED Review of Systems ROS: Stated complaint: LOWER BACK PAIN Other details as noted in HPI Constitutional: denies: chills, fever Eyes: denies: eye pain, eye discharge, vision change ENT: denies: ear pain, throat pain Respiratory: denies: cough, shortness of breath, wheezing Cardiovascular: denies: chest pain, palpitations Endocrine: no symptoms reported Gastrointestinal: denies: abdominal pain, nausea, diarrhea Genitourinary: denies: urgency, dysuria Musculoskeletal: back pain. denies: joint swelling, arthralgia Skin: denies: rash, lesions Neurological: denies: headache, weakness, paresthesias Psychiatric: denies: anxiety, depression Hematological/Lymphatic: denies: easy bleeding, easy bruising ED Past Medical Hx - Past Medical History Hx Hypertension: No Hx CVA: No Hx Heart Attack/AMI: No Hx Congestive Heart Failure: No Hx Diabetes: No Hx Deep Vein Thrombosis: No Hx Pulmonary Embolism: No Hx GERD: Yes Hx Liver Disease: No Hx Renal Disease: No Hx Sickle Cell Disease: No Hx Arthritis: Yes Hx Headaches / Migraines: Yes (MIGRAINES) Hx Seizures: No Hx Kidney Stones: No Hx Psychiatric Treatment: No Hx Asthma: No Hx COPD: No Hx Tuberculosis: No Hx Dementia: No Hx HIV: No Additional medical history: Lumbar neuropathy. sciatica. Mild scoliosis - Surgical History Hx Coronary Stent: No Hx Open Heart Surgery: No Hx Pacemaker: No Hx Internal Defibrillator: No Hx Cholecystectomy: No Hx Appendectomy: No Hx Breast Surgery: No Additional Surgical History: right foot surgery. Bilateral hernia repair - Social History Smoking Status: Never Smoker Substance Use Type: Alcohol - Medications Home Medications: Home Medications Medication Instructions Recorded Confirmed Last Taken Type Gabapentin [Neurontin] 100 mg PO Q8HR 10/13/15 02/28/16 10/13/15 History yes Nystatin [Nystop Powder] 1 applicatio TP TID 14 Days bottle 12/30/16 Unknown Rx hydrOXYzine PAMOATE [Vistaril] 25 mg PO Q6HR PRN #12 capsule 12/30/16 08/09/17 Rx Cetirizine HCl [ZyrTEC] 10 mg PO BIDWM #30 capsule 03/04/17 Unknown Rx Polymyxin B Sulf/Trimethoprim 1 drop OP Q3HR #5 ml 03/04/17 08/09/17 Rx [Polytrim Eye Drops 33873anwry/0.1%] Omeprazole 20 mg PO 08/20/17 08/09/17 History HYDROcodone/APAP 5-325 [Sullivan 1 each PO Q6HR PRN #10 tablet 11/14/18 Unknown Rx 5/325] Ondansetron [Zofran Odt] 4 mg PO Q8HR PRN #12 tab.rapdis 11/14/18 Unknown Rx ED Physical Exam - General Limitations: No Limitations General appearance: alert, in no apparent distress - Head Head exam: Present: atraumatic, normocephalic - Eye Eye exam: Present: normal appearance, PERRL, EOMI - ENT ENT exam: Present: mucous membranes moist - Neck Neck exam: Present: normal inspection - Respiratory Respiratory exam: Present: normal lung sounds bilaterally. Absent: respiratory distress - Cardiovascular Cardiovascular Exam: Present: regular rate, normal rhythm. Absent: systolic murmur, diastolic murmur, rubs, gallop - GI/Abdominal GI/Abdominal exam: Present: soft, normal bowel sounds - Rectal Rectal exam: Present: deferred - Extremities Exam Extremities exam: Present: normal inspection - Back Exam Back exam: Present: normal inspection, full ROM, other (positive straight leg raise test right leg at 30) - Neurological Exam Neurological exam: Present: alert, oriented X3, CN II-XII intact, normal gait - Psychiatric Psychiatric exam: Present: normal affect, normal mood - Skin Skin exam: Present: warm, dry, intact, normal color. Absent: rash ED Course Vital Signs 11/14/18 11/14/18 09:58 12:12 Temperature 97.7 F Pulse Rate 77 Respiratory 18 18 Rate Blood Pressure 117/75 [Right] O2 Sat by Pulse 95 Oximetry ED Medical Decision Making - Lab Data Result diagrams: 11/14/18 11:46 11/14/18 11:46 - Medical Decision Making A/P: Acute on chronic lower back pain, scoliosis, degenerative disc disease 1-patient has no clinical signs of cauda equina syndrome, is ambulatory with no severe neuro deficits ie saddle paresthesias, paralysis 2-vital signs stable for discharge 3-outpatient orthopedics follow-up 4- short course analgesics Critical care attestation.: If time is entered above; I have spent that time in minutes in the direct care of this critically ill patient, excluding procedure time. ED Disposition Clinical Impression: Back pain Qualifiers: Back pain location: low back pain Chronicity: acute Back pain laterality: right Sciatica presence: with sciatica Sciatica laterality: sciatica of right side Qualified Code(s): M54.41 - Lumbago with sciatica, right side Sciatica Qualifiers: Laterality: right Qualified Code(s): M54.31 - Sciatica, right side Disposition: TO HOME OR SELFCARE Is pt being admited?: No Does the pt Need Aspirin: No Condition: Stable Instructions: Sciatica (ED), Lumbar Radiculopathy (ED), Degenerative Disc Disease (ED) Prescriptions: HYDROcodone/APAP 5-325 [Sullivan 5/325] 1 each PO Q6HR PRN #10 tablet PRN Reason: Pain Ondansetron [Zofran Odt] 4 mg PO Q8HR PRN #12 tab.rapdis PRN Reason: Nausea Referrals: [facility] [Provider Group] - 3-5 Days SIDNEY NAVARRO MD [Primary Care Provider] - 3-5 Days ARLENE PRICE MD [Staff Physician] - 3-5 Days SHARRON HINES MD [Staff Physician] - 3-5 Days Forms: Work/School Release Form(ED) Time of Disposition: 12:35
[2018-11-14 11:59] LABS: Basophils % (Auto) 0.7 % (0.0-1.8); Eosinophils # (Auto) 0.2 K/mm3 (0.0-0.4); Eosinophils % (Auto) 2.7 % (0.0-4.3); Hematocrit 40.3 % (35.5-45.6); Hemoglobin 13.5 gm/dl (11.8-15.2); Lymphocytes # (Auto) 2.2 K/mm3 (1.2-5.4); Lymphocytes % (Auto) 31.7 % (13.4-35.0); Mean Corpuscular HGB Conc 34 % (32-34); Mean Corpuscular Volume 82 fl (84-94); Monocytes # (Auto) 0.8 K/mm3 (0.0-0.8); Monocytes % (Auto) 11.4 % (0.0-7.3); Platelet Count 266 K/mm3 (140-440); Red Blood Count 4.91 M/mm3 (3.65-5.03); Red Cell Distribution Width 14.4 % (13.2-15.2)
[2018-11-14 12:25] LABS: Alanine Aminotransferase 9 units/L (7-56); Albumin 3.8 g/dL (3.9-5); BUN/Creatinine Ratio 18; Blood Urea Nitrogen 16 mg/dL (9-20); Calcium 8.4 mg/dL (8.4-10.2); Hemolysis Index 8; Uric Acid 4.3 mg/dL (3.5-7.6)
--- NOTE | 2018-11-14 12:29 | XRay Report ---
LUMBOSACRAL SPINE, 3 VIEWS: History: Back pain Findings: There is straightening of the normal lordosis. Moderate degenerative changes noted at the lowest levels. No evidence for compression deformity or subluxation. The sacrum is grossly intact. Impression: Mild degenerative changes.
[2018-11-14 12:36] LABS: Erythrocyte Sedimentation Rate 2 mm/Hr (0-20)
== END 2018-11-14 12:49 | disposition home or self-care (01) ==
LOC: ED 09:42
DX: M54.41 Lumbago with sciatica, right side (principal); G89.29 Other chronic pain; K21.9 Gastro-esophageal reflux disease without esophagitis; M19.90 Unspecified osteoarthritis, unspecified site; G43.909 Migraine, unspecified, not intractable, without status migrainosus; Z79.899 Other long term (current) drug therapy; Z88.1 Allergy status to other antibiotic agents
CPT/HCPCS: 36415; 72100; 80053; 84550; 85025; 85652; 86140; 96374; 99284; J1885

== ENCOUNTER 2019-01-18 17:08 | Emergency (ER) | payer MEDICAID ==
--- NOTE | 2019-01-18 17:12 | Emergency Department Report ---
Blank Doc - Documentation Documentation: This is a 49-year-old male that presents with left flank pain. Denies any uri nary symptoms. This initial assessment/diagnostic orders/clinical plan/treatment(s) is/are subject to change based on patient's health status, clinical progression and re- assessment by fellow clinical providers in the ED. Further treatment and workup at subsequent clinical providers discretion. Patient/guardians urged not to elope from the ED as their condition may be serious if not clinically assessed and managed. Initial orders include: 1- Patient sent to [facility] for further evaluation and treatment 2- UA
[2019-01-18 17:13] VITALS: BP 121/82
[2019-01-18 18:44] LABS: Bilirubin,Urine NEG (Negative); Blood,Urine SM (Negative); Color,Urine Yellow (Yellow); Mucus,Urine FEW /HPF; Protein,Urine <15 mg/dL mg/dL (Negative); Urobilinogen,Urine < 2.0 mg/dL (<2.0); WBC,Urine < 1.0 /HPF (0.0-6.0)
[2019-01-18] MEDS ORDERED: TORADOL IV STA (21:06)
[2019-01-18] MEDS ORDERED: TORADOL ONE (21:08)
[2019-01-18 21:14] LABS: Basophils # (Auto) 0.1 K/mm3 (0.0-0.1); Basophils % (Auto) 0.7 % (0.0-1.8); Eosinophils # (Auto) 0.1 K/mm3 (0.0-0.4); Eosinophils % (Auto) 1.2 % (0.0-4.3); Hematocrit 39.4 % (35.5-45.6); Hemoglobin 13.1 gm/dl (11.8-15.2); Lymphocytes # (Auto) 2.5 K/mm3 (1.2-5.4); Lymphocytes % (Auto) 34.4 % (13.4-35.0); Mean Corpuscular HGB Conc 33 % (32-34); Mean Corpuscular Volume 84 fl (84-94); Monocytes # (Auto) 0.7 K/mm3 (0.0-0.8); Monocytes % (Auto) 9.7 % (0.0-7.3); Platelet Count 267 K/mm3 (140-440); Red Cell Distribution Width 15.3 % (13.2-15.2)
[2019-01-18 21:28] LABS: Alanine Aminotransferase 9 units/L (7-56); Albumin 3.7 g/dL (3.9-5); BUN/Creatinine Ratio 19; Blood Urea Nitrogen 15 mg/dL (9-20); Calcium 8.7 mg/dL (8.4-10.2); Hemolysis Index 8
--- NOTE | 2019-01-18 22:34 | Cat Scan Report ---
PROCEDURE: CT ABDOMEN PELVIS W CON TECHNIQUE: Computerized axial tomography of the abdomen and pelvis was performed after the IV inject ion of iodinated nonionic contrast. CT DOSE LENGTH PRODUCT: 520.2 mGycm HISTORY: Lower ABD Pain, left flank pain COMPARISONS: 10/20/2017 . FINDINGS: Visualized lower thorax: No significant abnormality. Liver: Normal size and attenuation. Spleen: Normal size and attenuation. Gallbladder and biliary system: Gallbladder is present. Pancreas: Normal. Adrenals: Normal. Kidneys: 2.5 cm left renal cyst. GI tract: Appendix is visualized and does not appear inflamed. No bowel obstruction or inflammation . Lymph nodes and mesentery: Normal. Vasculature: There is aortic atherosclerotic calcification. Bladder: Decompressed. Reproductive organs: Normal. Peritoneum: No free fluid. Musculoskeletal structures: Degenerative disc changes at L5-S1. Other: Small fat-containing left inguinal hernia. Evidence of prior right inguinal hernia repair . IMPRESSION: No acute abnormality is identified . This document is electronically signed by Goldie Hardy MD., Jan 18 2019 10:33:09 PM ET
--- NOTE | 2019-01-18 23:28 | Emergency Department Report ---
ED Abdominal Pain HPI - General Chief Complaint: Back Pain/Injury Stated Complaint: KIDNEY/BACK PAIN Time Seen by Provider: 01/18/19 17:11 Source: patient Mode of arrival: Ambulatory Limitations: No Limitations - History of Present Illness Initial Comments: A 49-year-old male with past medical history of renal stones presents to the emergency department presents emergency department complaining of right flank pain and having dark urine. No fevers appreciated. No hematemesis, no hematochezia, no hematuria. Denies any abdominal pain. MD Complaint: abdominal pain, flank pain -: days(s) (last few days) Location: R flank Migration to: no migration Severity scale (0 -10): 7 Quality: stabbing, aching Consistency: constant Improves With: nothing Worsens With: nothing Associated Symptoms: denies: vomiting, diarrhea, fever, constipation, hematemesis, hematochezia, syncope - Related Data Home Medications Medication Instructions Recorded Confirmed Last Taken Gabapentin [Neurontin] 100 mg PO Q8HR 10/13/15 02/28/16 10/13/15 yes Omeprazole 20 mg PO 08/20/17 08/09/17 Previous Rx's Medication Instructions Recorded Last Taken Type Nystatin [Nystop Powder] 1 applicatio TP TID 14 Days bottle 12/30/16 Unknown Rx hydrOXYzine PAMOATE [Vistaril] 25 mg PO Q6HR PRN #12 capsule 12/30/16 08/09/17 Rx Cetirizine HCl [ZyrTEC] 10 mg PO BIDWM #30 capsule 03/04/17 Unknown Rx Polymyxin B Sulf/Trimethoprim 1 drop OP Q3HR #5 ml 03/04/17 08/09/17 Rx [Polytrim Eye Drops 01828mrtno/0.1%] HYDROcodone/APAP 5-325 [Walls 1 each PO Q6HR PRN #10 tablet 11/14/18 Unknown Rx 5/325] Ondansetron [Zofran Odt] 4 mg PO Q8HR PRN #12 tab.rapdis 11/14/18 Unknown Rx Ciprofloxacin HCl [Ciprofloxacin 500 mg PO Q12HR #14 tab 01/18/19 Unknown Rx TAB] Hyoscyamine Subl [Levsin Sl 0.125 0.125 mg SL Q4HR PRN #14 tablet 01/18/19 Unknown Rx TAB] Ondansetron [Zofran Odt] 4 mg PO Q8HR #14 tab.rapdis 01/18/19 Unknown Rx Allergies Allergy/AdvReac Type Severity Reaction Status Date / Time nalbuphine HCl [From Nubain] Allergy Vomiting Verified 05/15/13 18:48 ED Review of Systems ROS: Stated complaint: KIDNEY/BACK PAIN Other details as noted in HPI Constitutional: denies: chills, fever Eyes: denies: eye pain, eye discharge, vision change ENT: denies: ear pain, throat pain Respiratory: denies: cough, shortness of breath, wheezing Cardiovascular: denies: chest pain, palpitations Endocrine: no symptoms reported Gastrointestinal: denies: abdominal pain, nausea, diarrhea Genitourinary: denies: urgency, dysuria Musculoskeletal: denies: back pain, joint swelling, arthralgia Skin: denies: rash, lesions Neurological: denies: headache, weakness, paresthesias Psychiatric: denies: anxiety, depression Hematological/Lymphatic: denies: easy bleeding, easy bruising ED Past Medical Hx - Past Medical History Hx Hypertension: No Hx CVA: No Hx Heart Attack/AMI: No Hx Congestive Heart Failure: No Hx Diabetes: No Hx Deep Vein Thrombosis: No Hx Pulmonary Embolism: No Hx GERD: Yes Hx Liver Disease: No Hx Renal Disease: No Hx Sickle Cell Disease: No Hx Arthritis: Yes Hx Headaches / Migraines: Yes (MIGRAINES) Hx Seizures: No Hx Kidney Stones: No Hx Psychiatric Treatment: No Hx Asthma: No Hx COPD: No Hx Tuberculosis: No Hx Dementia: No Hx HIV: No Additional medical history: Lumbar neuropathy. sciatica. Mild scoliosis - Surgical History Hx Coronary Stent: No Hx Open Heart Surgery: No Hx Pacemaker: No Hx Internal Defibrillator: No Hx Cholecystectomy: No Hx Appendectomy: No Hx Breast Surgery: No Additional Surgical History: right foot surgery. Bilateral hernia repair - Social History Smoking Status: Current Every Day Smoker Substance Use Type: None - Medications Home Medications: Home Medications Medication Instructions Recorded Confirmed Last Taken Type Gabapentin [Neurontin] 100 mg PO Q8HR 10/13/15 02/28/16 10/13/15 History yes Nystatin [Nystop Powder] 1 applicatio TP TID 14 Days bottle 12/30/16 Unknown Rx hydrOXYzine PAMOATE [Vistaril] 25 mg PO Q6HR PRN #12 capsule 12/30/16 08/09/17 Rx Cetirizine HCl [ZyrTEC] 10 mg PO BIDWM #30 capsule 03/04/17 Unknown Rx Polymyxin B Sulf/Trimethoprim 1 drop OP Q3HR #5 ml 03/04/17 08/09/17 Rx [Polytrim Eye Drops 95530lwnhm/0.1%] Omeprazole 20 mg PO 08/20/17 08/09/17 History HYDROcodone/APAP 5-325 [Walls 1 each PO Q6HR PRN #10 tablet 11/14/18 Unknown Rx 5/325] Ondansetron [Zofran Odt] 4 mg PO Q8HR PRN #12 tab.rapdis 11/14/18 Unknown Rx Ciprofloxacin HCl [Ciprofloxacin 500 mg PO Q12HR #14 tab 01/18/19 Unknown Rx TAB] Hyoscyamine Subl [Levsin Sl 0.125 0.125 mg SL Q4HR PRN #14 tablet 01/18/19 Unknown Rx TAB] Ondansetron [Zofran Odt] 4 mg PO Q8HR #14 tab.rapdis 01/18/19 Unknown Rx ED Physical Exam - General Limitations: No Limitations General appearance: alert, in no apparent distress - Head Head exam: Present: atraumatic, normocephalic - Eye Eye exam: Present: normal appearance, PERRL, EOMI - ENT ENT exam: Present: mucous membranes moist - Neck Neck exam: Present: normal inspection, full ROM, lymphadenopathy - Respiratory Respiratory exam: Present: normal lung sounds bilaterally. Absent: respiratory distress, rhonchi, stridor, chest wall tenderness - Cardiovascular Cardiovascular Exam: Present: regular rate, normal rhythm. Absent: systolic murmur, diastolic murmur, rubs, gallop - GI/Abdominal GI/Abdominal exam: Present: soft, tenderness (suprapubic region with palpation), normal bowel sounds - Rectal Rectal exam: Present: deferred - Extremities Exam Extremities exam: Present: normal inspection - Back Exam Back exam: Present: normal inspection, CVA tenderness (R) - Neurological Exam Neurological exam: Present: alert, oriented X3 - Psychiatric Psychiatric exam: Present: normal affect, normal mood - Skin Skin exam: Present: warm, dry, intact, normal color. Absent: rash ED Course Vital Signs 01/18/19 01/18/19 01/18/19 17:12 19:18 21:11 Temperature 98.5 F Pulse Rate 66 Respiratory 16 16 18 Rate Blood Pressure 121/82 O2 Sat by Pulse 98 Oximetry 01/18/19 23:29 Temperature Pulse Rate 60 Respiratory 17 Rate Blood Pressure O2 Sat by Pulse 99 Oximetry ED Medical Decision Making - Lab Data Result diagrams: 01/18/19 20:47 01/18/19 20:47 Critical care attestation.: If time is entered above; I have spent that time in minutes in the direct care of this critically ill patient, excluding procedure time. ED Disposition Clinical Impression: Flank pain, Hematuria, Abdominal pain, Renal cyst Disposition: DC- TO HOME OR SELFCARE Is pt being admited?: No Does the pt Need Aspirin: No Condition: Stable Instructions: Acute Hematuria (ED), Flank Pain (ED) Additional Instructions: Your CT scan shows no acute processes Prescriptions: Ciprofloxacin HCl [Ciprofloxacin TAB] 500 mg PO Q12HR #14 tab Hyoscyamine Subl [Levsin Sl 0.125 TAB] 0.125 mg SL Q4HR PRN #14 tablet PRN Reason: Spasms Ondansetron [Zofran Odt] 4 mg PO Q8HR #14 tab.rapdis Referrals: [facility] [Provider Group] - 3-5 Days SIDNEY NAVARRO MD [Primary Care Provider] - 3-5 Days
== END 2019-01-18 23:29 | disposition home or self-care (01) ==
LOC: ED 17:08
DX: R10.9 Unspecified abdominal pain (principal); M19.90 Unspecified osteoarthritis, unspecified site; G43.909 Migraine, unspecified, not intractable, without status migrainosus; F17.200 Nicotine dependence, unspecified, uncomplicated
CPT/HCPCS: 36415; 74177; 80053; 81001; 85025; 87086; 96374; 99284; J1885; Q9967

== ENCOUNTER 2019-03-30 15:17 | Inpatient (IN) | payer MEDICAID ==
--- NOTE | 2019-03-30 15:24 | Emergency Department Report ---
ED Neuro Deficit HPI - General Chief Complaint: Neuro Symptoms/Deficit Stated Complaint: CVA Time Seen by Provider: 03/30/19 15:24 Source: patient, EMS Mode of arrival: Stretcher Limitations: Other - History of Present Illness Initial Comments: 49-year-old -Citizen Of [place] male presents to ED with right upper extremity weakness, mild dysphagia about 30 minutes prior to arrival. Upon arrival patient was made a code stroke, and he was rushed to CT. He describes his symptoms as improving, but at onset he had severe paralysis of his right arm. He has a history of chronic low back pain, GERd and tobacco abuse. Upon returning from CT NIH score was 0 at 3:35 PM. Onset/Timin -: Gradual, minutes(s) Time: 14:45 Last Observed Normal: 14:45 Location: dysarthria, right arm Presenting Symptoms: Present: Weak/Paralyzed One Side History of same: No Place: home Severity: severe Quality: weak Improves With: none Worsens With: none On Anticoagulants: No Context: sudden onset Associated Symptoms: denies other symptoms Treatments Prior to Arrival: none - Related Data Home Medications: Home Medications Medication Instructions Recorded Confirmed Last Taken Gabapentin [Neurontin] 400 mg PO TID 10/13/15 03/30/19 03/29/19 Dicyclomine [Bentyl] 10 mg PO DAILY 03/28/19 03/30/19 03/29/19 Sertraline [Zoloft] 50 mg PO QDAY 03/28/19 03/30/19 03/29/19 traZODone [Desyrel] 100 mg PO QHS 03/28/19 03/30/19 03/29/19 Allergies/Adverse Reactions: Allergies Allergy/AdvReac Type Severity Reaction Status Date / Time nalbuphine HCl [From Nubain] Allergy Intermediate Hives Verified 03/30/19 15:55 ED Review of Systems ROS: Stated complaint: CVA Other details as noted in HPI Comment: All other systems reviewed and negative Constitutional: denies: chills ENT: denies: ear pain Gastrointestinal: denies: nausea Genitourinary: denies: urgency Skin: denies: rash Neurological: weakness ED Past Medical Hx - Past Medical History Hx Hypertension: No Hx CVA: No Hx Heart Attack/AMI: No Hx Congestive Heart Failure: No Hx Diabetes: No Hx Deep Vein Thrombosis: No Hx Pulmonary Embolism: No Hx GERD: Yes Hx Liver Disease: No Hx Renal Disease: No Hx Sickle Cell Disease: No Hx Arthritis: Yes Hx Headaches / Migraines: Yes (MIGRAINES) Hx Kidney Stones: Yes Hx Psychiatric Treatment: No Hx Asthma: No Hx COPD: Yes (NO MEDS) Hx Tuberculosis: Yes (POSITIVE SKIN TEST,TOOK TX,NEG CXR ) Hx HIV: No Additional medical history: Lumbar neuropathy. sciatica. Mild scoliosis - Surgical History Hx Coronary Stent: No Hx Open Heart Surgery: No Hx Pacemaker: No Hx Internal Defibrillator: No Hx Cholecystectomy: No Hx Appendectomy: No Hx Breast Surgery: No Additional Surgical History: right foot surgery. Bilateral hernia repair - Family History Family history: hypertension - Social History Smoking Status: Current Every Day Smoker Substance Use Type: None - Medications Home Medications: Home Medications Medication Instructions Recorded Confirmed Last Taken Type Gabapentin [Neurontin] 400 mg PO TID 10/13/15 03/30/19 03/29/19 History Dicyclomine [Bentyl] 10 mg PO DAILY 03/28/19 03/30/19 03/29/19 History Sertraline [Zoloft] 50 mg PO QDAY 03/28/19 03/30/19 03/29/19 History traZODone [Desyrel] 100 mg PO QHS 03/28/19 03/30/19 03/29/19 History ED Neuro Physical Exam - General Limitations: No Limitations, Other General appearance: alert, in no apparent distress Suspected Stroke: Yes - Head Head exam: Present: atraumatic, normocephalic - Eye Eye exam: Present: normal appearance, PERRL, EOMI Pupils: Present: normal accommodation - ENT ENT exam: Present: normal exam - Neck Neck exam: Present: normal inspection - Respiratory Respiratory exam: Present: normal lung sounds bilaterally - Cardiovascular Cardiovascular Exam: Present: regular rate, normal rhythm - GI/Abdominal GI/Abdominal exam: Present: soft, normal bowel sounds - Extremities Exam Extremities exam: Present: normal inspection, full ROM - Back Exam Back exam: Present: normal inspection - Neurological Exam Neurological exam: Present: alert, oriented X3 - NIHSS Assessment Interval: Baseline 1a. Level of Consciousness: alert/keenly responsive 1b. LOC Questions: answers both correctly 1c. LOC Commands: performs tasks correctly 2. Best Gaze: normal 3. Visual: no visual loss 4. Facial Palsy: normal symmetrical movement 5b. Motor Arm Right: no drift 5a. Motor Arm Left: no drift 6a. Motor Leg Left: no drift 6b. Motor Leg Right: no drift 7. Limb Ataxia: absent 8. Sensory: normal 9. Best Language: no aphasia 10. Dysarthria: normal 11. Extinction/Inattention: no abnormality Total Score: 0 Stroke Severity: No Stroke Symptoms - Psychiatric Psychiatric exam: Present: normal affect - Skin Skin exam: Present: warm ED Course Vital Signs 03/30/19 03/30/19 03/30/19 15:41 15:49 16:01 Temperature 98.4 F Pulse Rate 55 L 53 L Respiratory 14 14 12 Rate Blood Pressure 146/86 146/86 Blood Pressure [Left] O2 Sat by Pulse 96 97 98 Oximetry 03/30/19 03/30/19 03/30/19 16:31 16:41 16:51 Temperature Pulse Rate 54 L 55 L 58 L Respiratory 14 16 20 Rate Blood Pressure 143/86 143/86 143/86 Blood Pressure [Left] O2 Sat by Pulse 96 95 99 Oximetry 03/30/19 03/30/19 03/30/19 17:00 17:01 17:11 Temperature Pulse Rate 59 L 55 L 52 L Respiratory 11 L 11 L 16 Rate Blood Pressure 143/86 135/81 Blood Pressure 135/81 [Left] O2 Sat by Pulse 96 97 97 Oximetry 03/30/19 03/30/19 03/30/19 17:21 17:31 18:00 Temperature Pulse Rate 60 Respiratory 15 Rate Blood Pressure 135/81 135/81 Blood Pressure 139/88 [Left] O2 Sat by Pulse 98 96 98 Oximetry 03/30/19 03/30/19 03/30/19 18:05 18:11 18:21 Temperature Pulse Rate Respiratory Rate Blood Pressure 139/88 139/88 139/88 Blood Pressure [Left] O2 Sat by Pulse 98 98 98 Oximetry 03/30/19 03/30/19 03/30/19 18:30 18:41 18:51 Temperature Pulse Rate Respiratory Rate Blood Pressure 139/88 139/88 139/88 Blood Pressure [Left] O2 Sat by Pulse 96 99 98 Oximetry 03/30/19 03/30/19 03/30/19 19:01 19:10 19:11 Temperature 98.2 F Pulse Rate 54 L Respiratory 16 Rate Blood Pressure 139/88 145/89 Blood Pressure 145/89 [Left] O2 Sat by Pulse 96 95 96 Oximetry 03/30/19 03/30/19 03/30/19 19:21 19:31 19:41 Temperature Pulse Rate Respiratory Rate Blood Pressure 145/89 145/89 145/89 Blood Pressure [Left] O2 Sat by Pulse 97 96 97 Oximetry 03/30/19 03/30/19 03/30/19 19:51 20:01 20:11 Temperature Pulse Rate Respiratory Rate Blood Pressure 145/89 145/89 157/103 Blood Pressure [Left] O2 Sat by Pulse 97 96 96 Oximetry 03/30/19 03/30/19 03/30/19 20:21 20:26 20:31 Temperature Pulse Rate 58 L Respiratory 16 Rate Blood Pressure 157/103 139/88 Blood Pressure 139/88 [Left] O2 Sat by Pulse 99 99 96 Oximetry 03/30/19 20:41 Temperature Pulse Rate Respiratory Rate Blood Pressure 139/88 Blood Pressure [Left] O2 Sat by Pulse 96 Oximetry - Reevaluation(s) Reevaluation #1: 03/30/19 15:53 No symptoms currently, was evaluated by Tele neurology who recommended getting a CT angio head and CT angiogram neck. - Lab Data Result diagrams: 03/30/19 15:27 03/30/19 15:27 Lab Results 03/30/19 03/30/19 03/30/19 Range/Units 15:27 15:27 15:27 WBC 6.0 (4.5-11.0) K/mm3 RBC 5.13 H (3.65-5.03) M/mm3 Hgb 14.4 (11.8-15.2) gm/dl Hct 42.6 (35.5-45.6) % MCV 83 L (84-94) fl MCH 28 (28-32) pg MCHC 34 (32-34) % RDW 14.9 (13.2-15.2) % Plt Count 245 (140-440) K/mm3 Lymph % (Auto) 35.3 H (13.4-35.0) % [place] % (Auto) 10.3 H (0.0-7.3) % Eos % (Auto) 1.3 (0.0-4.3) % Baso % (Auto) 0.7 (0.0-1.8) % Lymph # 2.1 (1.2-5.4) K/mm3 [place] # 0.6 (0.0-0.8) K/mm3 Eos # 0.1 (0.0-0.4) K/mm3 Baso # 0.0 (0.0-0.1) K/mm3 Seg Neutrophils % 52.4 (40.0-70.0) % Seg Neutrophils # 3.1 (1.8-7.7) K/mm3 PT 13.3 (12.2-14.9) Sec. INR 1.04 (0.87-1.13) APTT 30.4 (24.2-36.6) Sec. Thrombin Time (15.1-19.6) Sec. Sodium 139 (137-145) mmol/L Potassium 4.2 (3.6-5.0) mmol/L Chloride 104.9 (98-107) mmol/L Carbon Dioxide 25 (22-30) mmol/L Anion Gap 13 mmol/L BUN 13 (9-20) mg/dL Creatinine 0.9 (0.8-1.5) mg/dL Estimated GFR > 60 ml/min BUN/Creatinine Ratio 14 % Glucose 94 (75-100) mg/dL Calcium 9.0 (8.4-10.2) mg/dL Troponin T < 0.010 (0.00-0.029) ng/mL 03/30/19 Range/Units 15:27 WBC (4.5-11.0) K/mm3 RBC (3.65-5.03) M/mm3 Hgb (11.8-15.2) gm/dl Hct (35.5-45.6) % MCV (84-94) fl MCH (28-32) pg MCHC (32-34) % RDW (13.2-15.2) % Plt Count (140-440) K/mm3 Lymph % (Auto) (13.4-35.0) % [place] % (Auto) (0.0-7.3) % Eos % (Auto) (0.0-4.3) % Baso % (Auto) (0.0-1.8) % Lymph # (1.2-5.4) K/mm3 [place] # (0.0-0.8) K/mm3 Eos # (0.0-0.4) K/mm3 Baso # (0.0-0.1) K/mm3 Seg Neutrophils % (40.0-70.0) % Seg Neutrophils # (1.8-7.7) K/mm3 PT (12.2-14.9) Sec. INR (0.87-1.13) APTT (24.2-36.6) Sec. Thrombin Time 17.2 (15.1-19.6) Sec. Sodium (137-145) mmol/L Potassium (3.6-5.0) mmol/L Chloride (98-107) mmol/L Carbon Dioxide (22-30) mmol/L Anion Gap mmol/L BUN (9-20) mg/dL Creatinine (0.8-1.5) mg/dL Estimated GFR ml/min BUN/Creatinine Ratio % Glucose (75-100) mg/dL Calcium (8.4-10.2) mg/dL Troponin T (0.00-0.029) ng/mL - EKG Data -: EKG Interpreted by Me - Medical Decision Making patient was made a code s, however tpa was not administered d/t nih score of 0 at 330pm. Neurologist, recommended to admit patient for TIA work up. Critical care attestation.: If time is entered above; I have spent that time in minutes in the direct care of this critically ill patient, excluding procedure time. ED Disposition Clinical Impression: TIA (transient ischemic attack) Disposition: OP ADMIT IP TO THIS HOSP Is pt being admited?: Yes Does the pt Need Aspirin: Yes Condition: Stable
[2019-03-30 15:36] LABS: Basophils % (Auto) 0.7 % (0.0-1.8); Eosinophils # (Auto) 0.1 K/mm3 (0.0-0.4); Eosinophils % (Auto) 1.3 % (0.0-4.3); Hematocrit 42.6 % (35.5-45.6); Hemoglobin 14.4 gm/dl (11.8-15.2); Lymphocytes # (Auto) 2.1 K/mm3 (1.2-5.4); Lymphocytes % (Auto) 35.3 % (13.4-35.0); Mean Corpuscular HGB Conc 34 % (32-34); Mean Corpuscular Volume 83 fl (84-94); Monocytes # (Auto) 0.6 K/mm3 (0.0-0.8); Monocytes % (Auto) 10.3 % (0.0-7.3); Platelet Count 245 K/mm3 (140-440); Red Blood Count 5.13 M/mm3 (3.65-5.03); Red Cell Distribution Width 14.9 % (13.2-15.2)
[2019-03-30 15:47] LABS: INR 1.04 (0.87-1.13)
[2019-03-30 15:48] LABS: Partial Thromboplastin Time 30.4 Sec. (24.2-36.6)
--- NOTE | 2019-03-30 15:52 | Cat Scan Report ---
CT HEAD WITHOUT CONTRAST INDICATION: neuro deficits <6hrs or sx present upon awakening TECHNIQUE: All CT scans at this location are performed using CT dose reduction for ALARA by means of automated exposure control. COMPARISON: None available. FINDINGS: BRAIN: No hemorrhage or mass effect are seen. No evidence of acute infarction is noted. ORBITS: Normal as visualized. SOFT TISSUES OF HEAD: Normal. CALVARIUM: Normal. VISUALIZED PARANASAL SINUSES AND MASTOID AIR CELLS: Clear. ADDITIONAL FINDINGS: None. IMPRESSION: No acute intracranial abnormality. Code stroke report called to Dr. Jones at 1546 [place] daylight time Signer Name: Prince Martell MD Signed: 03/30/2019 3:48 PM Workstation Name: [id number]
[2019-03-30 15:53] LABS: BUN/Creatinine Ratio 14; Blood Urea Nitrogen 13 mg/dL (9-20); Hemolysis Index 17
--- NOTE | 2019-03-30 16:01 | Emergency Department Report ---
ED Neuro Deficit HPI - General Chief Complaint: Neuro Symptoms/Deficit Stated Complaint: CVA Time Seen by Provider: 03/30/19 15:24 Source: patient, EMS Mode of arrival: Stretcher Limitations: No Limitations, Other - History of Present Illness Initial Comments: [facility] Date of Service: 03/30/2019 15:17:13 Impression: RO Acute Ischemic Stroke TIA v stroke Mechanism of Stroke: Not Clear Metrics: Last Known Well: 03/30/2019 14:45:00 Start Time: 03/30/2019 15:16:20 Arrival Time: 03/30/2019 15:17:00 Stamp Time: 03/30/2019 15:17:13 Time First Login Attempt: 03/30/2019 15:23:00 Video Start Time: 03/30/2019 15:23:00 Symptoms: R hemiparesis, aphasia NIHSS Start Assessment Time: 03/30/2019 15:30:00 Patient is not a candidate for tPA. Patient was not deemed candidate for tPA thrombolytics because of Symptoms resolved, NIHSS 0. Video End Time: 03/30/2019 15:36:00 CT head showed no acute hemorrhage or acute core infarct. CT head was reviewed. Advanced imaging CTA head and neck obtained. ER physician notified of the decision on thrombolytics management. Comments: Symptoms resolved, but LVO pattern with aphasia so CTA head/neck is ordered and pending at this time. Will follow-up CTA results. In the meantime routine stroke/TIA admission Our recommendations are outlined below. Recommendations: Antiplatelet Therapy Recommended Initiate Aspirin 325 MG Daily Recommended Scan: MRI Head Echocardiogram - Transthoracic Echocardiogram Lipid Panel to Be Obtained, if Not Done in the Last Three Months Therapies: Physical Therapy, Occupational Therapy, Speech Therapy Assessment When Applicable Dysphaghia Screen: Swallow Evaluation, Bedside DVT prophylaxis: Choice of Primary Team Disposition: Sign Out Sign Out: Discussed with Emergency Department Provider History of Present Illness: 49 yo with transient symptoms. At 1445 was walking, fall due to R side weakness. EMS called, and on their arrival on scene R side weakness improved, but some expressive speech changes noted. On arrival to ER speech symptoms improved, by the time CT completed all symptoms had resolved. No similar symptoms in the past per patient. Stroke alert called for EMS presentations Examination: 1A: Level of Consciousness - Alert; keenly responsive + 0 1B: Ask Month and Age - Both Questions Right + 0 1C: Blink Eyes & Squeeze Hands - Performs Both Tasks + 0 2: Test Horizontal Extraocular Movements - Normal + 0 3: Test Visual [place] - No Visual Loss + 0 4: Test Facial Palsy (Use Grimace if Obtunded) - Normal symmetry + 0 5A: Test Left Arm Motor Drift - No Drift for 10 Seconds + 0 5B: Test Right Arm Motor Drift - No Drift for 10 Seconds + 0 6A: Test Left Leg Motor Drift - No Drift for 5 Seconds + 0 6B: Test Right Leg Motor Drift - No Drift for 5 Seconds + 0 7: Test Limb Ataxia (FNF/Heel-[place]) - No Ataxia + 0 8: Test Sensation - Normal; No sensory loss + 0 9: Test Language/Aphasia - Normal; No aphasia + 0 10: Test Dysarthria - Normal + 0 11: Test Extinction/Inattention - No abnormality + 0 NIHSS Score: 0 Patient was informed the Neurology Consult would happen via TeleHealth consult by way of interactive audio and video telecommunications and consented to receiving care in this manner. Due to the immediate potential for life-threatening deterioration due to underlying acute neurologic illness, I spent 35 minutes providing critical care. This time includes time for face to face visit via telemedicine, review of medical records, imaging studies and discussion of findings with providers, the patient and/or family. Dr Cristiano Franklin [facility] Location: dysarthria, right arm History of same: No Place: home Severity: severe Quality: weak Improves With: none Worsens With: none On Anticoagulants: No Treatments Prior to Arrival: none - Related Data Home Medications: Home Medications Medication Instructions Recorded Confirmed Last Taken Gabapentin [Neurontin] 400 mg PO TID 10/13/15 03/30/19 03/29/19 Dicyclomine [Bentyl] 10 mg PO DAILY 03/28/19 03/30/19 03/29/19 Sertraline [Zoloft] 50 mg PO QDAY 03/28/19 03/30/19 03/29/19 traZODone [Desyrel] 100 mg PO QHS 03/28/19 03/30/19 03/29/19 Allergies/Adverse Reactions: Allergies Allergy/AdvReac Type Severity Reaction Status Date / Time nalbuphine HCl [From Nubain] Allergy Intermediate Hives Verified 03/30/19 15:55 ED Review of Systems ROS: Stated complaint: CVA Other details as noted in HPI Gastrointestinal: denies: nausea Genitourinary: denies: urgency Skin: denies: rash Neurological: weakness ED Past Medical Hx - Past Medical History Hx Hypertension: No Hx CVA: No Hx Heart Attack/AMI: No Hx Congestive Heart Failure: No Hx Diabetes: No Hx Deep Vein Thrombosis: No Hx Pulmonary Embolism: No Hx GERD: Yes Hx Liver Disease: No Hx Renal Disease: No Hx Sickle Cell Disease: No Hx Arthritis: Yes Hx Headaches / Migraines: Yes (MIGRAINES) Hx Kidney Stones: Yes Hx Psychiatric Treatment: No Hx Asthma: No Hx COPD: Yes (NO MEDS) Hx Tuberculosis: Yes (POSITIVE SKIN TEST,TOOK TX,NEG CXR ) Hx HIV: No Additional medical history: Lumbar neuropathy. sciatica. Mild scoliosis - Surgical History Hx Coronary Stent: No Hx Open Heart Surgery: No Hx Pacemaker: No Hx Internal Defibrillator: No Hx Cholecystectomy: No Hx Appendectomy: No Hx Breast Surgery: No Additional Surgical History: right foot surgery. Bilateral hernia repair - Social History Smoking Status: Current Every Day Smoker - Medications Home Medications: Home Medications Medication Instructions Recorded Confirmed Last Taken Type Gabapentin [Neurontin] 400 mg PO TID 10/13/15 03/30/19 03/29/19 History Dicyclomine [Bentyl] 10 mg PO DAILY 03/28/19 03/30/19 03/29/19 History Sertraline [Zoloft] 50 mg PO QDAY 03/28/19 03/30/19 03/29/19 History traZODone [Desyrel] 100 mg PO QHS 03/28/19 03/30/19 03/29/19 History ED Neuro Physical Exam - General Limitations: No Limitations, Other General appearance: alert, in no apparent distress Suspected Stroke: Yes - NIHSS Assessment Interval: Baseline 1a. Level of Consciousness: alert/keenly responsive 1b. LOC Questions: answers both correctly 1c. LOC Commands: performs tasks correctly 2. Best Gaze: normal 3. Visual: no visual loss 4. Facial Palsy: normal symmetrical movement 5b. Motor Arm Right: no drift 5a. Motor Arm Left: no drift 6a. Motor Leg Left: no drift 6b. Motor Leg Right: no drift 7. Limb Ataxia: absent 8. Sensory: normal 9. Best Language: no aphasia 10. Dysarthria: normal 11. Extinction/Inattention: no abnormality Total Score: 0 Stroke Severity: No Stroke Symptoms ED Course Vital Signs 03/30/19 03/30/19 15:41 15:49 Temperature 98.4 F Pulse Rate 55 L Respiratory 14 14 Rate Blood Pressure 146/86 O2 Sat by Pulse 96 97 Oximetry - Lab Data Result diagrams: 03/30/19 15:27 03/30/19 15:27 Lab Results 03/30/19 03/30/19 03/30/19 Range/Units 15:27 15:27 15:27 WBC 6.0 (4.5-11.0) K/mm3 RBC 5.13 H (3.65-5.03) M/mm3 Hgb 14.4 (11.8-15.2) gm/dl Hct 42.6 (35.5-45.6) % MCV 83 L (84-94) fl MCH 28 (28-32) pg MCHC 34 (32-34) % RDW 14.9 (13.2-15.2) % Plt Count 245 (140-440) K/mm3 Lymph % (Auto) 35.3 H (13.4-35.0) % [place] % (Auto) 10.3 H (0.0-7.3) % Eos % (Auto) 1.3 (0.0-4.3) % Baso % (Auto) 0.7 (0.0-1.8) % Lymph # 2.1 (1.2-5.4) K/mm3 [place] # 0.6 (0.0-0.8) K/mm3 Eos # 0.1 (0.0-0.4) K/mm3 Baso # 0.0 (0.0-0.1) K/mm3 Seg Neutrophils % 52.4 (40.0-70.0) % Seg Neutrophils # 3.1 (1.8-7.7) K/mm3 PT 13.3 (12.2-14.9) Sec. INR 1.04 (0.87-1.13) APTT 30.4 (24.2-36.6) Sec. Thrombin Time (15.1-19.6) Sec. Sodium 139 (137-145) mmol/L Potassium 4.2 (3.6-5.0) mmol/L Chloride 104.9 (98-107) mmol/L Carbon Dioxide 25 (22-30) mmol/L Anion Gap 13 mmol/L BUN 13 (9-20) mg/dL Creatinine 0.9 (0.8-1.5) mg/dL Estimated GFR > 60 ml/min BUN/Creatinine Ratio 14 % Glucose 94 (75-100) mg/dL Calcium 9.0 (8.4-10.2) mg/dL Troponin T < 0.010 (0.00-0.029) ng/mL 03/30/19 Range/Units 15:27 WBC (4.5-11.0) K/mm3 RBC (3.65-5.03) M/mm3 Hgb (11.8-15.2) gm/dl Hct (35.5-45.6) % MCV (84-94) fl MCH (28-32) pg MCHC (32-34) % RDW (13.2-15.2) % Plt Count (140-440) K/mm3 Lymph % (Auto) (13.4-35.0) % [place] % (Auto) (0.0-7.3) % Eos % (Auto) (0.0-4.3) % Baso % (Auto) (0.0-1.8) % Lymph # (1.2-5.4) K/mm3 [place] # (0.0-0.8) K/mm3 Eos # (0.0-0.4) K/mm3 Baso # (0.0-0.1) K/mm3 Seg Neutrophils % (40.0-70.0) % Seg Neutrophils # (1.8-7.7) K/mm3 PT (12.2-14.9) Sec. INR (0.87-1.13) APTT (24.2-36.6) Sec. Thrombin Time 17.2 (15.1-19.6) Sec. Sodium (137-145) mmol/L Potassium (3.6-5.0) mmol/L Chloride (98-107) mmol/L Carbon Dioxide (22-30) mmol/L Anion Gap mmol/L BUN (9-20) mg/dL Creatinine (0.8-1.5) mg/dL Estimated GFR ml/min BUN/Creatinine Ratio % Glucose (75-100) mg/dL Calcium (8.4-10.2) mg/dL Troponin T (0.00-0.029) ng/mL Critical care attestation.: If time is entered above; I have spent that time in minutes in the direct care of this critically ill patient, excluding procedure time. ED Disposition Clinical Impression: TIA (transient ischemic attack) Disposition: -09 OP ADMIT IP TO THIS HOSP Is pt being admited?: Yes Does the pt Need Aspirin: Yes Condition: Stable
--- NOTE | 2019-03-30 19:22 | Cat Scan Report ---
CTA NECK WITH CONTRAST HISTORY: "Stroke COMPARISON: None. TECHNIQUE: Routine CTA of the neck was performed. 3-D/MIP reformats were postprocessed. Percentage s tenosis is determined by direct quantitative measurements of diseased internal carotid artery diamete r compared with normal distal internal carotid artery reference segments or by criteria similar to NA SCET where applicable. All CT scans at this location are performed using CT dose reduction for ALARA by means of automated exposure control. CONTRAST: 100 ml of Omnipaque 350 FINDINGS: Aortic arch: No significant abnormality. Cervical vertebral arteries: Normal from their origin up to basilar formation. Left vertebral artery is originating from the aorta. Common carotid arteries: No significant abnormality. Carotid bifurcations: Normal bilaterally Cervical internal carotid arteries: No significant abnormality. Additional findings: None. IMPRESSION: Normal CTA of the neck. Signer Name: Alisa Presley MD Signed: 03/30/2019 7:18 PM Workstation Name: [id number]
--- NOTE | 2019-03-30 19:34 | History and Physical Report ---
History of Present Illness Chief complaint: I got weak on my right side History of present illness: 49 YO Male with Migraine OSORIO, COPD, Lumbar Neuropathy, Nephrolithiasis, Sciatica, Scoliosis, GERD presents to ED for evaluation. Pt states that he was in his usual state of health, but experienced acute onset of Right arm and leg weakness, as well as right facial droop, inability to speak, and inability to stand. EMS notified and upon arrival the patient was found to have a neurologic deficit. A code stroke was called and the patient transported to [facility]. Pt seen and evaluated in ED and found to have symptoms consistent with CVA. Teleneurology consulted and patient deemed not a candidate for TPA. Pt admitted to telemetry and initiated on CVA protocol. Neurology consulted in ED. No prior admission for review. No medication listed for reconciliation at time of admission. Past History Past Medical History: COPD, GERD, migraines, other (Lumbar neuropathy, Scoliosis) Past Surgical History: Other (right Foot, Bilateral hernia) Medications and Allergies Allergies Allergy/AdvReac Type Severity Reaction Status Date / Time nalbuphine HCl [From Nubain] Allergy Intermediate Hives Verified 03/30/19 15:55 Home Medications Medication Instructions Recorded Confirmed Last Taken Type Gabapentin [Neurontin] 400 mg PO TID 10/13/15 03/30/19 03/29/19 History Dicyclomine [Bentyl] 10 mg PO DAILY 03/28/19 03/30/19 03/29/19 History Sertraline [Zoloft] 50 mg PO QDAY 03/28/19 03/30/19 03/29/19 History traZODone [Desyrel] 100 mg PO QHS 03/28/19 03/30/19 03/29/19 History Exam - Constitutional Vitals: Temp Pulse Resp BP Pulse Ox 98.2 F 54 L 16 145/89 95 03/30/19 19:10 03/30/19 19:10 03/30/19 19:10 03/30/19 19:10 03/30/19 19:10 General appearance: Present: mild distress - EENT Eyes: Present: PERRL ENT: hearing intact, clear oral mucosa - Neck Neck: Present: supple, normal ROM - Respiratory Respiratory effort: normal Respiratory: bilateral: CTA - Cardiovascular Heart Sounds: Present: S1 & S2. Absent: rub, click - Extremities Extremities: pulses symmetrical, No edema Peripheral Pulses: within normal limits - Abdominal General gastrointestinal: Present: soft, non-tender, non-distended, normal bowel sounds Male genitourinary: Present: normal - Integumentary Integumentary: Present: clear, warm, dry - Musculoskeletal Musculoskeletal: gait normal, strength equal bilaterally - Psychiatric Psychiatric: appropriate mood/affect, intact judgment & insight - Neurologic Neurologic: CNII-XII intact, moves all extremities Results - Labs CBC & Chem 7: 03/30/19 15:27 03/30/19 15:27 Labs: Abnormal lab results 03/30/19 Range/Units 15:27 RBC 5.13 H (3.65-5.03) M/mm3 MCV 83 L (84-94) fl Lymph % (Auto) 35.3 H (13.4-35.0) % [place] % (Auto) 10.3 H (0.0-7.3) % Assessment and Plan - Patient Problems (1) CVA (cerebral vascular accident) Current Visit: Yes Status: Acute Qualifiers: Precerebral and cerebral artery: middle cerebral artery Laterality of affected vessel: left Plan to address problem: Stroke Protocol: Admit to telemetry, CT head, MRI Brain, MRA Brain, Echo, Carotid Doppler, PT/OT/Speech, Neuro check, aspiration precautions, Lipid panel, statin therapy, antiplatelet therapy. Neurology consulted. (2) Migraine headache Current Visit: Yes Status: Acute Qualifiers: Intractability: not intractable Plan to address problem: supportive care, pain control prn. (3) GERD (gastroesophageal reflux disease) Current Visit: Yes Status: Acute Qualifiers: Esophagitis presence: without esophagitis Qualified Code(s): K21.9 - Gastro-esophageal reflux disease without esophagitis Plan to address problem: PPI therapy, supportive care. (4) COPD (chronic obstructive pulmonary disease) Current Visit: Yes Status: Acute Qualifiers: Chronic bronchitis type: mixed simple and mucopurulent Plan to address problem: Supplemental oxygen, nebulizer therapy, supportive care. (5) Sciatica Current Visit: Yes Status: Acute Qualifiers: Laterality: unspecified laterality Qualified Code(s): M54.30 - Sciatica, unspecified side Plan to address problem: Pain control, supportive care. (6) DVT prophylaxis Current Visit: Yes Status: Acute Plan to address problem: SCD to BLE while in bed,
[2019-03-30] MEDS ORDERED: PHENERGAN PR PRN (19:35)
[2019-03-30] MEDS ORDERED: ZOFRAN IV PRN (19:35)
[2019-03-30] MEDS ORDERED: DULCOLAX PR PRN (19:35)
[2019-03-30] MEDS ORDERED: REGLAN PO PRN (19:35)
[2019-03-30] MEDS ORDERED: MILK OF MAGNESIA PO PRN (19:35)
[2019-03-30] MEDS ORDERED: SODIUM CHLORIDE FLUSH SYRINGE 10 ML IV PRN (19:35)
--- NOTE | 2019-03-30 19:42 | Cat Scan Report ---
CTA HEAD WITH CONTRAST HISTORY: "Stroke COMPARISON: None. TECHNIQUE: Routine , CTA of the head and post-contrast CT Head are performed. 3-D/MIP reformats postp rocessed. All CT scans at this location are performed using CT dose reduction for ALARA by means of a utomated exposure control. CONTRAST: 100 ml of Omnipaque 350 FINDINGS: CTA Head: Intracranial vertebral arteries: Intradural segments of both vertebral arteries and the basilar forma tion are normal. PICA origins are not seen well. Basilar artery: No significant abnormality. Posterior cerebral arteries: No significant abnormality. Intracranial internal carotid arteries: No significant abnormality. Anterior cerebral arteries: No significant abnormality. Middle cerebral arteries: No significant abnormality. Dural venous sinuses:Not optimally opacified. No significant abnormality. Additional findings: None. IMPRESSION: 1. Normal CTA of the brain Signer Name: Alisa Presley MD Signed: 03/30/2019 7:38 PM Workstation Name: [id number]
[2019-03-30] MEDS: NEURONTIN PO SCH (20:37)
[2019-03-30] MEDS ORDERED: NEURONTIN ONE (20:38)
[2019-03-30] MEDS: DESYREL PO SCH (22:24)
--- NOTE | 2019-03-31 10:10 | Consultation ---
History of Present Illness Consult date: 03/31/19 Reason for Consult: stroke Chief complaint: stroke History of present illness: pt seen and examined chart reviewed pt arrived w acute onset R face arm leg ? weakness, slurred speech, 'numb mouth' in the setting of OSORIO migrainous features L sided w throbbing all resolved by 3 pm after returning from CT CT naicp CTA h/n, no significant narrowing no a.fib pmh : ch. pain, gerd, migraine COPD no prior hx of stroke no sz no OSORIO at time of acute R sided weakness no recurrent strokes since admission no n.v.v no change of vision no LOC no new spine pain or radic. (hx of painful neuropathy, and sciatica) no b/bl dysfunction coag normal ECHO pending now at bedside no focal brain complaints no relapse OSORIO is still persisting, 6/10 L sided throbbing no photo/phono, non radiating MR brain: new L MCA [employer] strokes old stroke R cerebellum SH: 'liza been doing coke for years im in rehab now, + tob, no etoh FH : neg for neuro dis all: nalbuphine HCL ROS: all other sys neg Past History Past Medical History: COPD, GERD, migraines, other (Lumbar neuropathy, Scoliosis) Past Surgical History: Other (right Foot, Bilateral hernia) Medications and Allergies Allergies Allergy/AdvReac Type Severity Reaction Status Date / Time nalbuphine HCl [From Nubain] Allergy Intermediate Hives Verified 03/30/19 15:55 Home Medications Medication Instructions Recorded Confirmed Last Taken Type Gabapentin [Neurontin] 400 mg PO TID 10/13/15 03/30/19 03/29/19 History Dicyclomine [Bentyl] 10 mg PO DAILY 03/28/19 03/30/19 03/29/19 History Sertraline [Zoloft] 50 mg PO QDAY 03/28/19 03/30/19 03/29/19 History traZODone [Desyrel] 100 mg PO QHS 03/28/19 03/30/19 03/29/19 History Active Meds: Active Medications Acetaminophen (Tylenol) 650 mg PO Q4H PRN PRN Reason: Pain, Mild (1-3) Aspirin (Aspirin) 325 mg PO QDAY [facility] Atorvastatin Calcium (Lipitor) 40 mg PO QHS [facility] Last Admin: 03/30/19 22:24 Dose: 40 mg Documented by: Bisacodyl (Dulcolax) 10 mg NC QDAY PRN PRN Reason: Constipation Dicyclomine HCl (Bentyl) 10 mg PO DAILY [facility] Gabapentin (Neurontin) 400 mg PO TID [facility] Last Admin: 03/30/19 20:37 Dose: 400 mg Documented by: Magnesium Hydroxide (Milk Of Magnesia) 30 ml PO Q4H PRN PRN Reason: Constipation Metoclopramide HCl (Reglan) 10 mg PO Q6H PRN PRN Reason: Nausea And Vomiting Ondansetron HCl (Zofran) 4 mg IV Q8H PRN PRN Reason: Nausea And Vomiting Promethazine HCl (Phenergan) 25 mg NC Q6H PRN PRN Reason: Nausea And Vomiting Sertraline HCl (Zoloft) 50 mg PO QDAY [facility] Sodium Chloride (Sodium Chloride Flush Syringe 10 Ml) 10 ml IV PRN PRN PRN Reason: LINE FLUSH Trazodone HCl (Desyrel) 100 mg PO QHS [facility] Last Admin: 03/30/19 22:24 Dose: 100 mg Documented by: Review of Systems All systems: negative Physical Examination - Vital Signs Vital Signs: Vital Signs Temp Pulse Resp BP Pulse Ox 98.4 F 55 L 14 146/86 96 03/30/19 15:41 03/30/19 15:41 03/30/19 15:41 03/30/19 15:41 03/30/19 15:41 - Physical Exam Narrative exam: aox 4 no aphasia no agnosia cn intact 5/5 x all limbs no cerebellar signs no extra movements sensory intact to LT pp dtr and tone symm and normal to all limbs - Constitutional General appearance: comfortable - EENT EENT: Present: PERRL, vision intact - Respiratory Respiratory: Present: no respiratory distress - Cardiovascular Cardiovascular: Present: regular rate Extremities: Present: no peripheral edema bilatateraly, no ischemia or petechiae - Gastrointestinal Gastrointestinal: Present: soft - Integumentary Integumentary: Present: normal - Neurologic Cranial nerve examination: PERRL, EOMI, VFF, V1/V2/V3 grossly intact, tongue midline Speech examination: intact Sensorimotor examination: intact Detailed motor examination: grossly full strength in, full strength in all guero Motor examination - right side: 5/5: biceps, triceps, wrist flexion, wrist extension, licensing court magistrate, hip flexors, knee extensors, dorsiflexion, toe extension (EHL), plantarflexion Motor examination - left side: 5/5: biceps, triceps, wrist flexion, wrist extension, licensing court magistrate, hip flexors, knee extensors, dorsiflexion, toe extension (EHL), plantarflexion Detailed sensory examination: intact Reflexes: 2+: ankle, bicep, knee, tricep - Musculoskeletal Musculoskeletal: Present: no pain, normal range of motion - Psychiatric Psychiatric: Present: mood/affect appropriate Results - Laboratory Findings CBC and BMP: 03/30/19 15:27 03/30/19 15:27 Abnormal Lab Findings: Abnormal Labs 03/30/19 15:27 RBC 5.13 H MCV 83 L Lymph % (Auto) 35.3 H [place] % (Auto) 10.3 H Assessment and Plan stroke acute isch L MCA, L [employer] embolic, stable likely cardiac origin vs transient cerebral vasospasm d/t cocaine use migraine patients do have increased risk of stroke ch. 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 w/u vs HEME consult tele lipids a1c rehab eval DVT pphx BP control , keep normotensive euglycemic euthermic no evidence of CADASIL or PACNS
--- NOTE | 2019-03-31 10:31 | Vascular Lab Report ---
"DUPLEX DOPPLER ULTRASOUND CAROTID, BILATERAL INDICATION: stroke. FINDINGS: RIGHT CAROTID: No significant atherosclerotic plaque. Right ICA peak systolic velocity: 86 cm/sec. Right Vertebral Artery: Antegrade flow. LEFT CAROTID: No significant atherosclerotic plaque. Left ICA peak systolic velocity: 92 cm/sec. Left Vertebral Artery: Antegrade flow. IMPRESSION: 1. Right Internal Carotid Artery: Less than 50% diameter stenosis. 2. Left Internal Carotid Artery: Less than 50% diameter stenosis. Velocity criteria are extrapolated from diameter data as defined by the Society of Radiologists in [facility] Consensus Conference, Radiology 2003; 229;340-346. Degree of Stenosis (%) || ICA PSV (cm/sec) || Plaque estimate (%) || ICA/CCA PSV Ratio Normal <125 None <2.0 <50 <125 <50 <2.0 50-69 125-230 50 2.0-4.0 70 but less than 100 >230 50 >4.0 Near occlusion High, low, or none visible variable Total occlusion None visible; no lumen N/A Signer Name: Marhsall Hartley MD Signed: 03/31/2019 10:27 AM Workstation Name: [id number]"
--- NOTE | 2019-03-31 11:36 | Progress Note ---
Assessment and Plan Assessment and plan: TIA/left MCA CVA. Neurology reports left MCA acute ischemic small vessel branch occlusion. Follow-up MRI brain, echocardiogram. Migraine headache. Stable. Continue supportive care and pain control. GERD. Continue PPI and supportive care. COPD. Compensated. Sciatica. Pain control supportive care. History Interval history: No new issues overnight. Patient seen in MRI. Patient denies any deficits presently. Hospitalist Physical - Constitutional Vitals: Temp Pulse Resp BP Pulse Ox 98.0 F 54 L 18 122/77 95 03/31/19 04:12 03/31/19 04:59 03/31/19 04:12 03/31/19 04:12 03/31/19 04:12 General appearance: Present: no acute distress - EENT Eyes: Present: PERRL, EOM intact ENT: hearing intact, clear oral mucosa, dentition normal - Neck Neck: Present: supple, normal ROM - Respiratory Respiratory effort: normal Respiratory: bilateral: CTA - Cardiovascular Rhythm: regular Heart Sounds: Present: S1 & S2. Absent: gallop, rub - Extremities Extremities: no ischemia, No edema, Full ROM - Abdominal General gastrointestinal: soft, non-tender, non-distended, normal bowel sounds - Integumentary Integumentary: Present: clear, warm, dry - Neurologic Neurologic: CNII-XII intact, moves all extremities Results - Labs CBC & Chem 7: 03/30/19 15:27 03/30/19 15:27 Labs: Laboratory Last Values WBC 6.0 K/mm3 (4.5-11.0) 03/30/19 15:27 RBC 5.13 M/mm3 (3.65-5.03) H 03/30/19 15:27 Hgb 14.4 gm/dl (11.8-15.2) 03/30/19 15:27 Hct 42.6 % (35.5-45.6) 03/30/19 15:27 MCV 83 fl (84-94) L 03/30/19 15:27 MCH 28 pg (28-32) 03/30/19 15:27 MCHC 34 % (32-34) 03/30/19 15:27 RDW 14.9 % (13.2-15.2) 03/30/19 15:27 Plt Count 245 K/mm3 (140-440) 03/30/19 15:27 Lymph % (Auto) 35.3 % (13.4-35.0) H 03/30/19 15:27 [place] % (Auto) 10.3 % (0.0-7.3) H 03/30/19 15:27 Eos % (Auto) 1.3 % (0.0-4.3) 03/30/19 15:27 Baso % (Auto) 0.7 % (0.0-1.8) 03/30/19 15:27 Lymph # 2.1 K/mm3 (1.2-5.4) 03/30/19 15:27 [place] # 0.6 K/mm3 (0.0-0.8) 03/30/19 15: Eos # 0.1 K/mm3 (0.0-0.4) 03/30/19 15: Baso # 0.0 K/mm3 (0.0-0.1) 03/30/19 15:27 Seg Neutrophils % 52.4 % (40.0-70.0) 03/30/19 15:27 Seg Neutrophils # 3.1 K/mm3 (1.8-7.7) 03/30/19 15:27 PT 13.3 Sec. (12.2-14.9) 03/30/19 15: INR 1.04 (0.87-1.13) 03/30/19 15:27 APTT 30.4 Sec. (24.2-36.6) 03/30/19 15:27 17.2 Sec. (15.1-19.6) 03/30/19 15:27 Sodium 139 mmol/L (137-145) 03/30/19 15:27 Potassium 4.2 mmol/L (3.6-5.0) 03/30/19 15:27 Chloride 104.9 mmol/L (98-107) 03/30/19 15:27 Carbon Dioxide 25 mmol/L (22-30) 03/30/19 15:27 13 mmol/L 03/30/19 15:27 BUN 13 mg/dL (9-20) 03/30/19 15:27 0.9 mg/dL (0.8-1.5) 03/30/19 15:27 Estimated GFR > 60 ml/min 07/25/19 15:27 14 % 03/30/19 15:27 Glucose 94 mg/dL (75-100) 03/30/19 15:27 Calcium 9.0 mg/dL (8.4-10.2) 03/30/19 15:27 < 0.010 ng/mL (0.00-0.029) 03/30/19 15:27 Active Medications - Current Medications Current Medications: Generic Name Dose Route Start Last Admin Trade Name Freq PRN Reason Stop Dose Admin Acetaminophen 650 mg 03/30/19 19:35 Tylenol PO Q4H PRN Pain, Mild (1-3) Aspirin 325 mg 03/31/19 10:00 Aspirin PO QDAY [facility] Atorvastatin Calcium 40 mg 03/30/19 22:00 03/30/19 22:24 Lipitor PO 40 mg QHS [facility] Administration Bisacodyl 10 mg 03/30/19 19:35 Dulcolax [place] QDAY PRN Constipation Dicyclomine HCl 10 mg 03/31/19 10:00 Bentyl PO DAILY [facility] Gabapentin 400 mg 03/30/19 20:00 03/30/19 20:37 Neurontin PO 400 mg TID [facility] Administration Magnesium Hydroxide 30 ml 03/30/19 19:35 Milk Of Magnesia PO Q4H PRN Constipation Metoclopramide HCl 10 mg 03/30/19 19:35 Reglan PO Q6H PRN Nausea And Vomiting Ondansetron HCl 4 mg 03/30/19 19:35 Zofran IV Q8H PRN Nausea And Vomiting Promethazine HCl 25 mg 03/30/19 19:35 Phenergan [place] Q6H PRN Nausea And Vomiting Sertraline HCl 50 mg 03/31/19 10:00 Zoloft PO QDAY [facility] Sodium Chloride 10 ml 03/30/19 19:35 Sodium Chloride Flush Syringe 10 Ml IV PRN PRN LINE FLUSH Trazodone HCl 100 mg 03/30/19 22:00 03/30/19 22:24 Desyrel PO 100 mg QHS [facility] Administration
[2019-03-31] MEDS: ZOLOFT PO SCH (12:37)
[2019-03-31] MEDS: NEURONTIN PO SCH ×3 (12:37→21:52)
[2019-03-31] MEDS: ASPIRIN PO SCH (12:38)
[2019-03-31] MEDS: BENTYL PO SCH (12:38)
[2019-03-31] MEDS: TYLENOL PO PRN (12:38)
--- NOTE | 2019-03-31 12:38 | Magnetic Resonance Report ---
MRI BRAIN WITHOUT CONTRAST INDICATION / CLINICAL INFORMATION: stroke. TECHNIQUE: Multiplanar, multisequence MR images of the brain were obtained. COMPARISON: CT scanner of the brain, CTA of the brain and CTA of the neck from yesterday FINDINGS: BRAIN / INTRACRANIAL CONTENTS: 3 focal areas of subacute ischemia seen in the left cerebral hemispher e. These are seen in the left posterior parietal lobe external border zone, along the anterior surfac e of left precentral gyrus and in the left superior frontal gyrus. These infarctions are more than 6 hours old (increased FLAIR and T2 signal intensities) but less than 3 days old (low ADC values). I do not see hemorrhagic changes (normal susceptibility changes in the diffusion-weighted images). CTA of the neck was normal from yesterday. Hence, other source of emboli has to be evaluated. Linear chronic ischemic lesion is seen in both cerebellar hemispheres. Focal vertical ischemia probab ly subacute without infusion changes seen around one of the right frontal cortical sulcus. Midbrain i s normal. I am also given the history of migraine. I do not see MR findings to suggest CADASIL I do not see midline shift or mass effect over the ventricular system.. No acute ischemia, acute hemo rrhage, mass effect, midline shift, or hydrocephalus. No chronic infarct or atrophy. No significant white matter abnormality. CRANIOCERVICAL JUNCTION: No significant abnormality. VASCULAR FLOW-VOIDS: No significant abnormality. ORBITS: No significant abnormality of visualized orbits. SINUSES / MASTOIDS: No significant abnormality of visualized sinuses and mastoid air cells. ADDITIONAL FINDINGS: None. IMPRESSION: 3 focal areas of nonhemorrhagic subacute ischemia in the left cerebral hemisphere; since MRA of the b rain was normal, source of emboli has to be further worked up. Signer Name: Alisa Presley MD Signed: 03/31/2019 12:34 PM Workstation Name: [id number]
--- NOTE | 2019-03-31 12:46 | Magnetic Resonance Report ---
MR MRA/MRV head wo con INDICATION / CLINICAL INFORMATION: 49 years Male; stroke. TECHNIQUE: 3-D time of flight. NASCET type criteria used to evaluate stenoses. Some motion artifact COMPARISON: None available. FINDINGS: INTERNAL CAROTID ARTERIES: No significant narrowing appreciated. VERTEBROBASILAR SYSTEM: No significant narrowing appreciated. The right vertebral artery appears to b e dominant. DISTAL BRANCHES: Distal branches of the anterior, middle, and posterior cerebral arteries are fairly symmetric in appearance and number. Note, there may be a small area of fusion of the anterior cerebral arteries along the inferior margin of the genu of the corpus callosum. This finding could be related to artifact. Certainly, no evidenc e of aneurysm seen in this region. ANEURYSM: None identified. There is a small infundibulum associated with the ophthalmic artery on the right. Presumed, very small infundibula associated with the origins of the posterior communicating a nd anterior choroidal arteries on the right, as well. IMPRESSION: No significant abnormality on this MRA of the brain. Signer Name: Talat Salcido MD, III Signed: 03/31/2019 12:42 PM Workstation Name: [id number]
[2019-03-31 14:36] LABS: Chol/HDL Ratio 2.73 %
[2019-03-31 18:02] LABS: Amphetamine Screen,Urine PRESUMPTIVE NEGATIVE; Benzodiazepines Screen,Urine PRESUMPTIVE NEGATIVE; Cannabinoid Screen,Urine PRESUMPTIVE NEGATIVE; Cocaine Screen,Urine PRESUMPTIVE NEGATIVE; Methadone Screen,Urine PRESUMPTIVE NEGATIVE; Opiate Screen,Urine PRESUMPTIVE NEGATIVE
[2019-03-31] MEDS: DESYREL PO SCH (21:53)
[2019-04-01] MEDS: NEURONTIN PO SCH ×3 (08:18→19:14)
[2019-04-01] MEDS: ASPIRIN PO SCH (09:51)
[2019-04-01] MEDS: ZOLOFT PO SCH (09:51)
[2019-04-01] MEDS: BENTYL PO SCH (09:51)
--- NOTE | 2019-04-01 12:11 | Progress Note ---
Assessment and Plan Assessment and plan: Left MCA/[employer]MENT HAY SORTER CVA. Neurology reports left MCA acute ischemic small vessel branch occlusion. Echocardiogram reveals a patent foramen ovale demonstrated by agitated saline contrast with left ventricle systolic function normal and EF 55- 60%. Mild concentric left ventricular hypertrophy. MRI/MRA reveals 3 focal areas of nonhemorrhagic subacute ischemia in the left cerebral hemisphere. Given the patent foramen ovale, we will check lower extremity Dopplers. Consider JANET. Hypercoagulable workup pending. Hematology consulted. 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 Migraine headache. Stable. Continue supportive care and pain control. GERD. Continue PPI and supportive care. COPD. Compensated. Sciatica. Pain control supportive care. History Interval history: No new issues overnight. Hospitalist Physical - Constitutional Vitals: Temp Pulse Resp BP Pulse Ox 98.3 F 53 L 18 113/73 97 04/01/19 07:50 04/01/19 07:50 04/01/19 07:50 04/01/19 07:50 04/01/19 07:50 General appearance: Present: no acute distress - EENT Eyes: Present: PERRL, EOM intact ENT: hearing intact, clear oral mucosa, dentition normal - Neck Neck: Present: supple, normal ROM - Respiratory Respiratory effort: normal Respiratory: bilateral: CTA - Cardiovascular Rhythm: regular Heart Sounds: Present: S1 & S2. Absent: gallop, rub - Extremities Extremities: no ischemia, No edema, Full ROM - Abdominal General gastrointestinal: soft, non-tender, non-distended, normal bowel sounds - Integumentary Integumentary: Present: clear, warm, dry - Neurologic Neurologic: CNII-XII intact, moves all extremities Results - Labs CBC & Chem 7: 03/30/19 15:27 03/30/19 15:27 Labs: Laboratory Last Values WBC 6.0 K/mm3 (4.5-11.0) 03/30/19 15:27 RBC 5.13 M/mm3 (3.65-5.03) H 03/30/19 15:27 Hgb 14.4 gm/dl (11.8-15.2) 03/30/19 15:27 Hct 42.6 % (35.5-45.6) 03/30/19 15:27 MCV 83 fl (84-94) L 03/30/19 15:27 MCH 28 pg (28-32) 03/30/19 15: MCHC 34 % (32-34) 03/30/19 15: RDW 14.9 % (13.2-15.2) 03/30/19 15: Plt Count 245 K/mm3 (140-440) 03/30/19 15:27 Lymph % (Auto) 35.3 % (13.4-35.0) H 03/30/19 15:27 [place] % (Auto) 10.3 % (0.0-7.3) H 03/30/19 15:27 Eos % (Auto) 1.3 % (0.0-4.3) 03/30/19 15: Baso % (Auto) 0.7 % (0.0-1.8) 03/30/19: Lymph # 2.1 K/mm3 (1.2-5.4) 03/30/19 15: [facility] [place] # 0.6 K/mm3 (0.0-0.8) 03/30/19: Eos # 0.1 K/mm3 (0.0-0.4) 03/30/19 15: Baso # 0.0 K/mm3 (0.0-0.1) 03/30/19 15: Seg Neutrophils % 52.4 % (40.0-70.0) 03/30/19 15: Seg Neutrophils # 3.1 K/mm3 (1.8-7.7) 03/30/19 15: PT 13.3 Sec. (12.2-14.9) 03/30/19 15: INR 1.04 (0.87-1.13) 03/30/19 15:27 APTT 30.4 Sec. (24.2-36.6) 03/30/19 15:27 17.2 Sec. (15.1-19.6) 03/30/19 15:27 Sodium 139 mmol/L (137-145) 03/30/19 15:27 Potassium 4.2 mmol/L (3.6-5.0) 03/30/19 15: Chloride 104.9 mmol/L (98-107) 03/30/19 15:27 Carbon Dioxide 25 mmol/L (22-30) 03/30/19 15:27 13 mmol/L 03/30/19 15:27 BUN 13 mg/dL (9-20) 03/30/19 15:27 0.9 mg/dL (0.8-1.5) 03/30/19 15:27 Estimated GFR > 60 ml/min 03/30/19 15:27 14 % 03/30/19 15:27 Glucose 94 mg/dL (75-100) 03/30/19 15:27 Calcium 9.0 mg/dL (8.4-10.2) 03/30/19 15:27 < 0.010 ng/mL (0.00-0.029) 03/30/19 15:27 Triglycerides 89 mg/dL (2-149) 03/31/19 13:45 Cholesterol 197 mg/dL (50-199) 03/31/19 13:45 121 mg/dL (50-130) 03/31/19 13:45 72 mg/dL (40-59) H 03/31/19 13:45 2.73 % 03/31/19 13:45 Presumptive negative 03/31/19 17:20 Presumptive negative 03/31/19 17:20 Ur Barbiturates Screen Presumptive negative 03/31/19 17:20 Ur Phencyclidine Scrn Presumptive negative 03/31/19 17:20 Ur Amphetamines Screen Presumptive negative 03/31/19 17:20 U Benzodiazepines Scrn Presumptive negative 03/31/19 17:20 Presumptive negative 03/31/19 17:20 U Marijuana (THC) Screen Presumptive negative 03/31/19 17:20 Disclamer 03/31/19 17:20 Active Medications - Current Medications Current Medications: Generic Name Dose Route Start Last Admin Trade Name Freq PRN Reason Stop Dose Admin Acetaminophen 650 mg 03/30/19 19:35 03/31/19 12:38 Tylenol PO 650 mg Q4H PRN Administration Pain, Mild (1-3) Aspirin 325 mg 03/31/19 10:00 04/01/19 09:51 Aspirin PO 325 mg QDAY PAUL Administration Atorvastatin Calcium 40 mg 03/30/19 22:00 03/31/19 21:53 Lipitor PO 40 mg QHS PAUL Administration Bisacodyl 10 mg 03/30/19 19:35 Dulcolax ND QDAY PRN Constipation Dicyclomine HCl 10 mg 03/31/19 10:00 04/01/19 09:51 Bentyl PO 10 mg DAILY PAUL Administration Gabapentin 400 mg 03/30/19 20:00 04/01/19 08:18 Neurontin PO 400 mg TID PAUL Administration Magnesium Hydroxide 30 ml 03/30/19 19:35 Milk Of Magnesia PO Q4H PRN Constipation Metoclopramide HCl 10 mg 03/30/19 19:35 Reglan PO Q6H PRN Nausea And Vomiting Ondansetron HCl 4 mg 03/30/19 19:35 Zofran IV Q8H PRN Nausea And Vomiting Promethazine HCl 25 mg 03/30/19 19:35 Phenergan ND Q6H PRN Nausea And Vomiting Sertraline HCl 50 mg 03/31/19 10:00 04/01/19 09:51 Zoloft PO 50 mg QDAY PAUL Administration Sodium Chloride 10 ml 03/30/19 19:35 Sodium Chloride Flush Syringe 10 Ml IV PRN PRN LINE FLUSH Trazodone HCl 100 mg 03/30/19 22:00 03/31/19 21:53 Desyrel PO 100 mg QHS PAUL Administration
--- NOTE | 2019-04-01 13:54 | Vascular Lab Report ---
DUPLEX DOPPLER LOWER EXTREMITY VEINS, BILATERAL INDICATION: r/o dvt--embolic source. TECHNIQUE: Duplex doppler imaging was performed through the veins of both lower extremities using venous ben sarina and other maneuvers. COMPARISON: None available. FINDINGS: Right Common Femoral vein: Negative. Right Superficial Femoral vein: Negative. Right Popliteal vein: Negative. Right Calf veins: Negative. Left Common Femoral vein: Negative. Left Superficial Femoral vein: Negative. Left Popliteal vein: Negative. Left Calf veins: Negative. Additional findings: None. IMPRESSION: 1. No sonographic evidence for DVT in either lower extremity. Signer Name: Chava Rodriguez MD Signed: 04/01/2019 1:50 PM Workstation Name: [id number]
[2019-04-01] MEDS: TYLENOL PO PRN (19:14)
[2019-04-01] MEDS ORDERED: PERCOCET 5/325 PO PRN (21:21)
[2019-04-01] MEDS: DESYREL PO SCH (21:35)
--- NOTE | 2019-04-02 07:47 | Event Note ---
Date: 04/02/19 [id number]
[2019-04-02] MEDS: NEURONTIN PO SCH ×3 (08:13→21:43)
[2019-04-02] MEDS: ASPIRIN PO SCH (09:28)
[2019-04-02] MEDS: BENTYL PO SCH (09:28)
[2019-04-02] MEDS: ZOLOFT PO SCH (09:28)
--- NOTE | 2019-04-02 10:12 | Progress Note ---
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 Neurology reports left MCA acute ischemic small vessel branch occlusion. Echocardiogram reveals a patent foramen ovale demonstrated by agitated saline contrast with left ventricle systolic function normal and EF 55- 60%. Mild concentric left ventricular hypertrophy. MRI/MRA reveals 3 focal areas of nonhemorrhagic subacute ischemia in the left cerebral hemisphere. Lower extremity Dopplers negative for DVT. Consider JANET. Hypercoagulable workup per Hematology who has been consulted. 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 Migraine headache. Stable. Continue supportive care and pain control. GERD. Continue PPI and supportive care. COPD. Compensated. Sciatica. Pain control supportive care. History Interval history: No new issues overnight. Patient complains of low back pain. Hospitalist Physical - Constitutional Vitals: Temp Pulse Resp BP Pulse Ox 97.4 F L 64 20 131/78 94 04/02/19 07:29 04/02/19 07:29 04/02/19 08:13 04/02/19 07:29 04/02/19 07:29 General appearance: Present: no acute distress - EENT Eyes: Present: PERRL, EOM intact ENT: hearing intact, clear oral mucosa, dentition normal - Neck Neck: Present: supple, normal ROM - Respiratory Respiratory effort: normal Respiratory: bilateral: CTA - Cardiovascular Rhythm: regular Heart Sounds: Present: S1 & S2. Absent: gallop, rub - Extremities Extremities: no ischemia, No edema, Full ROM - Abdominal General gastrointestinal: soft, non-tender, non-distended, normal bowel sounds - Integumentary Integumentary: Present: clear, warm, dry - Neurologic Neurologic: CNII-XII intact, moves all extremities Results - Labs CBC & Chem 7: 03/30/19 15:27 03/30/19 15:27 Labs: Laboratory Last Values WBC 6.0 K/mm3 (4.5-11.0) 03/30/19 15:27 RBC 5.13 M/mm3 (3.65-5.03) H 03/30/19 15:27 Hgb 14.4 gm/dl (11.8-15.2) 03/30/19 15:27 Hct 42.6 % (35.5-45.6) 03/30/19 15:27 MCV 83 fl (84-94) L 03/30/19 15:27 MCH 28 pg (28-32) 03/30/19 15:27 MCHC 34 % (32-34) 03/30/19 15:27 RDW 14.9 % (13.2-15.2) 03/30/19 15: Plt Count 245 K/mm3 (140-440) 03/30/19 15:27 Lymph % (Auto) 35.3 % (13.4-35.0) H 03/30/19 15:27 [place] % (Auto) 10.3 % (0.0-7.3) H 03/30/19 15:27 Eos % (Auto) 1.3 % (0.0-4.3) 03/30/19 15: Baso % (Auto) 0.7 % (0.0-1.8) 03/30/19 15: Lymph # 2.1 K/mm3 (1.2-5.4) 03/30/19 15: [place] # 0.6 K/mm3 (0.0-0.8) 03/30/19 15: Eos # 0.1 K/mm3 (0.0-0.4) 03/30/19 15: Baso # 0.0 K/mm3 (0.0-0.1) 03/30/19 15: Seg Neutrophils % 52.4 % (40.0-70.0) 03/30/19 15: Seg Neutrophils # 3.1 K/mm3 (1.8-7.7) 03/30/19 15:27 PT 13.3 Sec. (12.2-14.9) 03/30/19 15:27 INR 1.04 (0.87-1.13) 03/30/19 15:27 APTT 30.4 Sec. (24.2-36.6) 03/30/19 15:27 17.2 Sec. (15.1-19.6) 03/30/19 15:27 Sodium 139 mmol/L (137-145) 03/30/19 15:27 Potassium 4.2 mmol/L (3.6-5.0) 03/30/19 15:27 Chloride 104.9 mmol/L (98-107) 03/30/19 15:27 Carbon Dioxide 25 mmol/L (22-30) 03/30/19 15:27 13 mmol/L 07/25/19 15:27 BUN 13 mg/dL (9-20) 03/30/19 15:27 0.9 mg/dL (0.8-1.5) 03/30/19 15:27 Estimated GFR > 60 ml/min 03/30/19 15:27 14 % 03/30/19 15:27 Glucose 94 mg/dL (75-100) 03/30/19 15:27 Calcium 9.0 mg/dL (8.4-10.2) 03/30/19 15:27 < 0.010 ng/mL (0.00-0.029) 03/30/19 15:27 Triglycerides 89 mg/dL (2-149) 03/31/19 13:45 Cholesterol 197 mg/dL (50-199) 03/31/19 13:45 121 mg/dL (50-130) 03/31/19 13:45 72 mg/dL (40-59) H 03/31/19 13:45 2.73 % 03/31/19 13:45 Presumptive negative 03/31/19 17:20 Presumptive negative 03/31/19 17:20 Ur Barbiturates Screen Presumptive negative 03/31/19 17:20 Ur Phencyclidine Scrn Presumptive negative 03/31/19 17:20 Ur Amphetamines Screen Presumptive negative 03/31/19 17:20 U Benzodiazepines Scrn Presumptive negative 03/31/19 17:20 Presumptive negative 03/31/19 17:20 U Marijuana (THC) Screen Presumptive negative 03/31/19 17:20 Disclamer 03/31/19 17:20 Active Medications - Current Medications Current Medications: Generic Name Dose Route Start Last Admin Trade Name Freq PRN Reason Stop Dose Admin Acetaminophen 650 mg 03/30/19 19:35 04/01/19 19:14 Tylenol PO 650 mg Q4H PRN Administration Pain, Mild (1-3) Aspirin 325 mg 03/31/19 10:00 04/02/19 09:28 Aspirin PO 325 mg QDAY PAUL Administration Atorvastatin Calcium 40 mg 03/30/19 22:00 04/01/19 21:35 Lipitor PO 40 mg QHS PAUL Administration Bisacodyl 10 mg 03/30/19 19:35 Dulcolax DC QDAY PRN Constipation Dicyclomine HCl 10 mg 03/31/19 10:00 04/02/19 09:28 Bentyl PO 10 mg DAILY PAUL Administration Gabapentin 400 mg 03/30/19 20:00 04/02/19 08:13 Neurontin PO 400 mg TID PAUL Administration Magnesium Hydroxide 30 ml 03/30/19 19:35 Milk Of Magnesia PO Q4H PRN Constipation Metoclopramide HCl 10 mg 03/30/19 19:35 Reglan PO Q6H PRN Nausea And Vomiting Ondansetron HCl 4 mg 03/30/19 19:35 Zofran IV Q8H PRN Nausea And Vomiting Oxycodone/Acetaminophen 1 tab 04/01/19 21:21 04/02/19 08:13 Percocet 5/325 PO 1 tab Q4H PRN Administration Pain, Moderate (4-6) Promethazine HCl 25 mg 03/30/19 19:35 Phenergan DC Q6H PRN Nausea And Vomiting Sertraline HCl 50 mg 03/31/19 10:00 04/02/19 09:28 Zoloft PO 50 mg QDAY PAUL Administration Sodium Chloride 10 ml 03/30/19 19:35 Sodium Chloride Flush Syringe 10 Ml IV PRN PRN LINE FLUSH Trazodone HCl 100 mg 03/30/19 22:00 04/01/19 21:35 Desyrel PO 100 mg QHS PAUL Administration
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
[2019-04-02] MEDS: HABITROL TD SCH (12:35)
[2019-04-02] MEDS: DESYREL PO SCH (21:43)
[2019-04-03] MEDS: NEURONTIN PO SCH ×3 (09:15→23:08)
[2019-04-03] MEDS: ASPIRIN PO SCH (09:15)
[2019-04-03] MEDS: BENTYL PO SCH (09:15)
[2019-04-03] MEDS: HABITROL TD SCH (09:16)
[2019-04-03] MEDS: ZOLOFT PO SCH (09:16)
[2019-04-03 10:06] LABS: Hematocrit 48.4 % (35.5-45.6); Hemoglobin 16.3 gm/dl (11.8-15.2); Mean Corpuscular HGB Conc 34 % (32-34); Mean Corpuscular Volume 82 fl (84-94); Platelet Count 293 K/mm3 (140-440); Red Blood Count 5.88 M/mm3 (3.65-5.03); Red Cell Distribution Width 14.6 % (13.2-15.2)
[2019-04-03 10:29] LABS: Basophils # (Auto) 0.1 K/mm3 (0.0-0.1); Eosinophils # (Auto) 0.1 K/mm3 (0.0-0.4); Eosinophils % (Auto) 1.9 % (0.0-4.3); Lymphocytes # (Auto) 2.5 K/mm3 (1.2-5.4); Lymphocytes % (Auto) 34.5 % (13.4-35.0); Monocytes # (Auto) 0.9 K/mm3 (0.0-0.8); Monocytes % (Auto) 12.8 % (0.0-7.3)
[2019-04-03 10:33] LABS: Alanine Aminotransferase 15 units/L (7-56); Albumin 4.2 g/dL (3.9-5); BUN/Creatinine Ratio 11; Blood Urea Nitrogen 11 mg/dL (9-20); Calcium 9.1 mg/dL (8.4-10.2); Hemolysis Index 21
--- NOTE | 2019-04-03 10:53 | Progress Note ---
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 left MCA acute ischemic small vessel branch occlusion. Echocardiogram reveals a patent foramen ovale demonstrated by agitated saline contrast with left ventricle systolic function normal and EF 55-60%. Mild concentric left ventricular hypertrophy. MRI/MRA reveals 3 focal areas of nonhemorrhagic subacute ischemia in the left cerebral hemisphere. Lower extremity Dopplers negative for DVT. Hypercoagulable workup per Hematology who has been consulted. 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 he denies any history of stroke in the past Migraine headache. Stable. Continue supportive care and pain control. GERD. Continue PPI and supportive care. COPD. Compensated. Sciatica. Pain control supportive care. History of street drug/cocaine use Cessation Counseling was done Subjective Patient is awake alert and oriented offers no specific complaints He states that he is ambulating on his own chart reviewed Denies any chest pain or shortness of breath Denies weakness fever or chills 12 point review of systems is negative Objective - Constitutional Vitals: Vital Signs - 12hr 04/02/19 04/02/19 04/03/19 23:39 23:40 03:39 Temperature 97.6 F Pulse Rate 71 62 Pulse Rate [ From Monitor] Respiratory 20 18 Rate Blood Pressure 125/85 106/66 O2 Sat by Pulse 96 96 Oximetry 04/03/19 04/03/19 04/03/19 03:42 08:14 10:00 Temperature 98.0 F 97.7 F Pulse Rate 60 61 Pulse Rate [ 60 From Monitor] Respiratory 18 18 Rate Blood Pressure 144/80 O2 Sat by Pulse 96 96 Oximetry General appearance: Present: no acute distress, well-nourished - EENT Eyes: PERRL, EOM intact ENT: hearing intact, clear oral mucosa - Neck Neck: supple, normal ROM, no masses or JVD - Respiratory Respiratory effort: normal Respiratory: bilateral: CTA - Cardiovascular Rhythm: regular Heart Sounds: Present: S1 & S2 Extremities: No edema - Gastrointestinal General gastrointestinal: Present: soft, non-tender. Absent: hepatomegaly, splenomegaly Rectal Exam: deferred - Genitourinary Male genitourinary: deferred - Integumentary Integumentary: clear - Musculoskeletal Musculoskeletal: strength equal bilaterally - Neurologic Neurologic: CNII-XII intact - Psychiatric Psychiatric: appropriate mood/affect - Labs CBC & Chem 7: 04/03/19 08:23 04/03/19 08:23 Labs: Abnormal lab results 04/03/19 Range/Units 08:23 RBC 5.88 H (3.65-5.03) M/mm3 Hgb 16.3 H (11.8-15.2) gm/dl Hct 48.4 H (35.5-45.6) % MCV 82 L (84-94) fl [place] % (Auto) 12.8 H (0.0-7.3) % [place] # 0.9 H (0.0-0.8) K/mm3
--- NOTE | 2019-04-03 12:13 | Consultation ---
History of Present Illness Consult date: 04/03/19 Requesting physician: HUNG TIM Consult reason: other (PFO, CVA) History of present illness: The pt is a 49 YO male with a past medical history of migraine headaches, GERD, tobacco use, former cocaine use. He is previously unknown to our practice. He presented on 03/30/2019 with c/o acute onset RUE and RLE weakness and right facial droop, inability to speak, and inability to stand. EMS notified and upon arrival the patient was found to have a neurologic deficit. A code stroke was called and the patient transported to [facility]. Pt seen and evaluated in ED and found to have symptoms consistent with CVA. Teleneurology consulted and patient deemed not a candidate for TPA. 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 He underwent TTE which showed EF 55-60%, mild LVH, trace MR, trace TR, PFO and thus cardiology has been consulted. Pt denies any cardiac complaints or any known prior cardiac history. On evaluation, he reports complete resolution of his neurological symptoms which were present on admission. Past History Past Medical History: GERD, migraines, other (Lumbar neuropathy, Scoliosis) Past Surgical History: Other (right Foot, Bilateral hernia) Medications and Allergies Allergies Allergy/AdvReac Type Severity Reaction Status Date / Time nalbuphine HCl [From Nubain] Allergy Intermediate Hives Verified 03/30/19 15:55 Home Medications Medication Instructions Recorded Confirmed Last Taken Type Gabapentin [Neurontin] 400 mg PO TID 10/13/15 03/30/19 03/29/19 History Dicyclomine [Bentyl] 10 mg PO DAILY 03/28/19 03/30/19 03/29/19 History Sertraline [Zoloft] 50 mg PO QDAY 03/28/19 03/30/19 03/29/19 History traZODone [Desyrel] 100 mg PO QHS 03/28/19 03/30/19 03/29/19 History Active Meds: Active Medications Acetaminophen (Tylenol) 650 mg PO Q4H PRN PRN Reason: Pain, Mild (1-3) Last Admin: 04/01/19 19:14 Dose: 650 mg Documented by: Aspirin (Aspirin) 325 mg PO QDAY [facility] Last Admin: 04/03/19 09:15 Dose: 325 mg Documented by: Atorvastatin Calcium (Lipitor) 40 mg PO QHS [facility] Last Admin: 04/02/19 21:43 Dose: 40 mg Documented by: Bisacodyl (Dulcolax) 10 mg MD QDAY PRN PRN Reason: Constipation Dicyclomine HCl (Bentyl) 10 mg PO DAILY [facility] Last Admin: 04/03/19 09:15 Dose: 10 mg Documented by: Gabapentin (Neurontin) 400 mg PO TID [facility] Last Admin: 04/03/19 09:15 Dose: 400 mg Documented by: Magnesium Hydroxide (Milk Of Magnesia) 30 ml PO Q4H PRN PRN Reason: Constipation Metoclopramide HCl (Reglan) 10 mg PO Q6H PRN PRN Reason: Nausea And Vomiting Nicotine (Habitrol) 21 mg TD QDAY [facility] Last Admin: 04/03/19 09:16 Dose: 21 mg Documented by: Ondansetron HCl (Zofran) 4 mg IV Q8H PRN PRN Reason: Nausea And Vomiting Oxycodone/Acetaminophen (Percocet 5/325) 1 tab PO Q4H PRN PRN Reason: Pain, Moderate (4-6) Last Admin: 04/02/19 08:13 Dose: 1 tab Documented by: Promethazine HCl (Phenergan) 25 mg MD Q6H PRN PRN Reason: Nausea And Vomiting Sertraline HCl (Zoloft) 50 mg PO QDAY [facility] Last Admin: 04/03/19 09:16 Dose: 50 mg Documented by: Sodium Chloride (Sodium Chloride Flush Syringe 10 Ml) 10 ml IV PRN PRN PRN Reason: LINE FLUSH Trazodone HCl (Desyrel) 100 mg PO QHS [facility] Last Admin: 04/02/19 21:43 Dose: 100 mg Documented by: Review of Systems Constitutional: no weight loss, no weight gain, no fever, no chills, no sweats Ears, nose, mouth and throat: no ear pain, no nose pain, no sinus pressure, no sinus pain Cardiovascular: no chest pain Respiratory: no cough, no shortness of breath, no dyspnea on exertion, no c ongestion, no wheezing, no pain on inspiration Gastrointestinal: no abdominal pain, no nausea, no vomiting, no diarrhea, no constipation, no change in bowel habits Genitourinary Male: no dysuria, no hematuria, no flank pain, no discharge, no urinary frequency, no urinary hesitancy Musculoskeletal: no neck stiffness, no neck pain, no shooting arm pain, no arm numbness/tingling, no low back pain, no shooting leg pain Integumentary: no rash, no pruritis, no redness, no sores, no wounds Neurological: weakness (right-sided), headaches, change in speech, no head injury, no paralysis, no seizures, no syncope Psychiatric: no anxiety Endocrine: no cold intolerance, no heat intolerance Hematologic/Lymphatic: no easy bruising, no easy bleeding Allergic/Immunologic: no urticaria, no wheezing Physical Examination Vital Signs Temp Pulse Resp BP Pulse Ox 98.4 F 55 L 14 146/86 96 03/30/19 15:41 03/30/19 15:41 03/30/19 15:41 03/30/19 15:41 03/30/19 15:41 General appearance: no acute distress HEENT: Positive: PERRL, Normocephaly, Mucus Membranes Moist Neck: Positive: neck supple, trachea midline Cardiac: Positive: Reg Rate and Rhythm, S1/S2 Lungs: Positive: Decreased Breath Sounds Neuro: Positive: Grossly Intact Abdomen: Negative: Tender Skin: Negative: Rash Musculoskeletal: No Pain Extremities: Absent: edema Results 04/03/19 08:23 04/03/19 08:23 Cardiac Enzymes 04/03/19 Range/Units 08:23 AST 16 (5-40) units/L CBC 04/03/19 Range/Units 08:23 WBC 7.4 (4.5-11.0) K/mm3 RBC 5.88 H (3.65-5.03) M/mm3 Hgb 16.3 H (11.8-15.2) gm/dl Hct 48.4 H (35.5-45.6) % Plt Count 293 (140-440) K/mm3 Lymph # 2.5 (1.2-5.4) K/mm3 [place] # 0.9 H (0.0-0.8) K/mm3 Eos # 0.1 (0.0-0.4) K/mm3 Baso # 0.1 (0.0-0.1) K/mm3 Comprehensive Metabolic Panel 04/03/19 Range/Units 08:23 Sodium 140 (137-145) mmol/L Potassium 4.2 (3.6-5.0) mmol/L Chloride 101.8 (98-107) mmol/L Carbon Dioxide 26 (22-30) mmol/L BUN 11 (9-20) mg/dL Creatinine 1.0 (0.8-1.5) mg/dL Glucose 99 (75-100) mg/dL Calcium 9.1 (8.4-10.2) mg/dL AST 16 (5-40) units/L ALT 15 (7-56) units/L Alkaline Phosphatase 116 (35-129) units/L Total Protein 7.3 (6.3-8.2) g/dL Albumin 4.2 (3.9-5) g/dL - Imaging and Cardiology Echo: report reviewed ( EF 55-60%, mild LVH, trace MR, trace TR, PFO ) EKG: report reviewed, image reviewed EKG interpretations - Telemetry EKG Rhythm: Sinus Rhythm - EKG Sinus rhythms and dysrhythmias: sinus rhythm Assessment and Plan Pt presented with 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 Embolic etiology suspected per neurology. Hematology has been consulted. Tele reviewed - no arrhythmias noted and no prior cardiac issues reported. JANET recommended for further evaluation. Indications, potential risks and benefits of JANET reviewed with pt and pt's at bedside and they are agreeable to proceed in AM. NPO after MN. The patient has been seen in conjunction with Dr. Tori Cuadra who agrees with the assessment and plan of care. - Patient Problems (1) Acute CVA (cerebrovascular accident) Current Visit: Yes Status: Acute (2) PFO (patent foramen ovale) Current Visit: Yes Status: Chronic (3) Tobacco use Current Visit: Yes Status: Chronic (4) History of cocaine use Current Visit: Yes Status: Chronic (5) GERD (gastroesophageal reflux disease) Current Visit: Yes Status: Chronic Qualifiers: Esophagitis presence: without esophagitis Qualified Code(s): K21.9 - Gastro-esophageal reflux disease without esophagitis
--- NOTE | 2019-04-03 17:12 | Hem/Onc Progress Note ---
Assessment and Plan 1. Left cerebral ischemic event, embolic phenomena suspected. The patient has history of smoking. This may have a role. History of using coke in the past. I discussed with the patient regarding quitting drugs and quitting smoking. homocysteine, lupus anticoagulant testing as these are the arterial causes of thrombosis. Patenet foramen ovale + cardiology following - no DVT in leg 2. History of migraine. 3. History of chronic obstructive pulmonary disease. 4. History of nephrolithiasis. 5. History of sciatica and scoliosis. 6. Lower extremity Doppler was negative for deep vein thrombosis. 7. Echo has been ordered. 8. Patent foramen ovale. 04/03 - d/w pt and family reg PFO - smoking at this time these 2 may have a role in the TIA - Patient Problems (1) TIA (transient ischemic attack) Current Visit: Yes Status: Acute Subjective Date of service: 04/03/19 Principal diagnosis: TIA Interval history: found to have PFO - seen by cardio Objective - Exam Narrative Exam: Pain - none General appearance no acute distress Performance status ambulating Eyes - no icterus ENT no thrush LNs cervical not palpable Neck - normal ROM Respiratory Normal Breath sounds - CTA CVS S1 S2 + Extremities normal temperature General GI Soft Rectal deferred male - deferred Skin warm Musculoskeletal moving normal Neurologically no focal deficit - Constitutional Vitals: Last Vital Signs Temp 97.8 F 04/03/19 11:52 Pulse 65 04/03/19 11:52 Resp 18 04/03/19 11:52 BP 127/87 04/03/19 11:52 Pulse Ox 92 04/03/19 11:52 - Labs Lab Results: Laboratory Results - last 24 hr 04/03/19 04/03/19 08:23 08:23 WBC 7.4 RBC 5.88 H Hgb 16.3 H Hct 48.4 H MCV 82 L MCH 28 MCHC 34 RDW 14.6 Plt Count 293 Lymph % (Auto) 34.5 [place] % (Auto) 12.8 H Eos % (Auto) 1.9 Baso % (Auto) 1.0 Lymph # 2.5 [place] # 0.9 H Eos # 0.1 Baso # 0.1 Add Manual Diff Complete Seg Neutrophils % 49.8 Nucleated RBC % Not Reportable Seg Neutrophils # 3.7 WBC Morphology Not Reportable Hypersegmented Neuts Not Reportable Hyposegmented Neuts Not Reportable Hypogranular Neuts Not Reportable Smudge Cells Not Reportable Toxic Granulation Not Reportable Toxic Vacuolation Not Reportable Dohle Bodies Not Reportable Pelger-Huet Anomaly Not Reportable Deejay Rods Not Reportable Platelet Estimate Not Reportable Clumped Platelets Not Reportable Plt Clumps, EDTA Not Reportable Large Platelets Not Reportable Giant Platelets Not Reportable Platelet Satelliting Not Reportable Plt Morphology Comment Not Reportable RBC Morphology Not Reportable Dimorphic RBCs Not Reportable Polychromasia Not Reportable Hypochromasia Not Reportable Poikilocytosis Not Reportable Anisocytosis Not Reportable Microcytosis Not Reportable Macrocytosis Not Reportable Spherocytes Not Reportable Pappenheimer Bodies Not Reportable Sickle Cells Not Reportable Target Cells Not Reportable Tear Drop Cells Not Reportable Ovalocytes Not Reportable Helmet Cells Not Reportable Desir-[place] Bodies Not Reportable [place] Rings Not Reportable Daphnie Cells Not Reportable Bite Cells Not Reportable Crenated Cell Not Reportable Elliptocytes Not Reportable Acanthocytes (Spur) Not Reportable Rouleaux Not Reportable Hemoglobin C Crystals Not Reportable Schistocytes Not Reportable Malaria parasites Not Reportable Roland Bodies Not Reportable Hem Pathologist Commnt Not Reportable Sodium 140 Potassium 4.2 Chloride 101.8 Carbon Dioxide 26 Anion Gap 16 BUN 11 Creatinine 1.0 Estimated GFR > 60 BUN/Creatinine Ratio 11 Glucose 99 Calcium 9.1 Total Bilirubin 0.20 AST 16 ALT 15 Alkaline Phosphatase 116 Total Protein 7.3 Albumin 4.2 Albumin/Globulin Ratio 1.4 Medications & Allergies - Medications Allergies/Adverse Reactions: Allergies nalbuphine HCl [From Nubain] Allergy (Intermediate, Verified 03/30/19 15:55) Hives Home Medications: Home Medications Medication Instructions Recorded Confirmed Last Taken Type Gabapentin [Neurontin] 400 mg PO TID 10/13/15 03/30/19 03/29/19 History Dicyclomine [Bentyl] 10 mg PO DAILY 03/28/19 03/30/19 03/29/19 History Sertraline [Zoloft] 50 mg PO QDAY 03/28/19 03/30/19 03/29/19 History traZODone [Desyrel] 100 mg PO QHS 03/28/19 03/30/19 03/29/19 History Active Medications: Generic Name Dose Route Start Last Admin Trade Name Jaspalq PRN Reason Stop Dose Admin Acetaminophen 650 mg 03/30/19 19:35 04/01/19 19:14 Tylenol PO 650 mg Q4H PRN Administration Pain, Mild (1-3) Aspirin 325 mg 03/31/19 10:00 04/03/19 09:15 Aspirin PO 325 mg QDAY PAUL Administration Atorvastatin Calcium 40 mg 03/30/19 22:00 04/02/19 21:43 Lipitor PO 40 mg QHS PAUL Administration Bisacodyl 10 mg 03/30/19 19:[address] QDAY PRN Constipation Dicyclomine HCl 10 mg 03/31/19 10:00 04/03/19 09:15 Bentyl PO 10 mg DAILY PAUL Administration Gabapentin 400 mg 03/30/19 20:00 04/03/19 13:54 Neurontin PO 400 mg TID PAUL Administration Magnesium Hydroxide 30 ml 03/30/19 19:35 Milk Of Magnesia PO Q4H PRN Constipation Metoclopramide HCl 10 mg 03/30/19 19:35 Reglan PO Q6H PRN Nausea And Vomiting Nicotine 21 mg 04/02/19 12:00 04/03/19 09:16 Habitrol TD 21 mg QDAY [facility] Administration Ondansetron HCl 4 mg 03/30/19 19:35 Zofran IV Q8H PRN Nausea And Vomiting Oxycodone/Acetaminophen 1 tab 04/01/19 21:21 04/02/19 08:13 Percocet 5/325 PO 1 tab Q4H PRN Administration Pain, Moderate (4-6) Promethazine HCl 25 mg 03/30/19 19:[address] Q6H PRN Nausea And Vomiting Sertraline HCl 50 mg 03/31/19 10:00 04/03/19 09:16 Zoloft PO 50 mg QDAY PAUL Administration Sodium Chloride 10 ml 03/30/19 19:35 Sodium Chloride Flush Syringe 10 Ml IV PRN PRN LINE FLUSH Trazodone HCl 100 mg 03/30/19 22:00 04/02/19 21:43 Desyrel PO 100 mg QHS PAUL Administration
[2019-04-03] MEDS: DESYREL PO SCH (23:09)
--- NOTE | 2019-04-04 03:26 | Consultation ---
REFERRED BY: Dr. Martell. REASON FOR CONSULTATION: Right-sided weakness. HISTORY OF PRESENT ILLNESS: I saw the patient, a 49-year-old Afro-Welsh male with past history of migraine, COPD, lumbar neuropathy, nephrolithiasis, sciatica, scoliosis, GERD, came to the hospital because of right-sided weakness in arms and legs as well as facial droop and inability to speak and inability to stand. He was brought by the EMS team. He was deemed not a candidate for TPA. Neurology was consulted. These symptoms resolved after few hours after returning from [place]. There is no history of AFib. I have been asked to evaluate the patient from Hematology perspective. Cardiology investigations have been done. The patient is on telemetry. At this time, the patient is ambulating. He has history of smoking. I advised him to quit. At this time, no headache, no visual disturbances, no ear discharge, no chest pain, no palpitations, no abdominal pain, no vomiting, no diarrhea, no dysuria. PAST MEDICAL HISTORY: As above, COPD, GERD, migraine, lumbar neuropathy, scoliosis. SURGICAL HISTORY: Right foot surgery, hernia surgery. ALLERGIES: NALBUPHINE. HOME MEDICATIONS: Include Neurontin, sertraline/Zoloft, trazodone, Ventolin. PHYSICAL EXAMINATION: VITAL SIGNS: Temperature 97, pulse 71, respirations 20, BP 125/85. HEENT: No pallor, no icterus. NECK: No neck lymph nodes. HEART: S1, S2. LUNGS: Clear to auscultation. ABDOMEN: Soft. EXTREMITIES: No calf tenderness. NEUROLOGIC: Moving all 4 extremities. Ambulating. LABORATORY DATA: White cell 6, hemoglobin 14, MCV 83, platelet 245. Potassium 4.2, creatinine 0.9, calcium 9. RADIOLOGY: CT head was done. Brain MRI was done. Head MRI was done. Three focal area of nonhemorrhagic subacute ischemia in the left cerebral hemisphere. Since MRI brain was normal, source of emboli has to be worked up. ASSESSMENT AND PLAN: 1. Left cerebral ischemic event, embolic phenomena suspected. The patient has history of smoking. This may have a role. History of using coke in the past. I discussed with the patient regarding quitting drugs and quitting smoking. We will do homocysteine, lupus anticoagulant testing as these are the arterial causes of thrombosis. He will need to be optimized from other risk factors for stroke. Since some of these tests are send out, I can see him as an outpatient basis once these result. The patient is being followed by Neurology team. The patient is on aspirin at this time. Cardiology investigations are ongoing. 2. History of migraine. 3. History of chronic obstructive pulmonary disease. 4. History of nephrolithiasis. 5. History of sciatica and scoliosis. 6. Lower extremity Doppler was negative for deep vein thrombosis. 7. Echo has been ordered. 8. Patent foramen ovale. JOB# [id number] NM/NTS
[2019-04-04 06:07] LABS: Hematocrit 47.4 % (35.5-45.6); Hemoglobin 15.4 gm/dl (11.8-15.2); Mean Corpuscular HGB Conc 32 % (32-34); Mean Corpuscular Volume 84 fl (84-94); Platelet Count 250 K/mm3 (140-440); Red Blood Count 5.67 M/mm3 (3.65-5.03); Red Cell Distribution Width 14.9 % (13.2-15.2)
[2019-04-04 06:36] LABS: BUN/Creatinine Ratio 14; Blood Urea Nitrogen 14 mg/dL (9-20); Calcium 8.5 mg/dL (8.4-10.2); Hemolysis Index 19
--- NOTE | 2019-04-04 06:54 | Hem/Onc Progress Note ---
Assessment and Plan 1. Left cerebral ischemic event, embolic phenomena suspected. The patient has history of smoking. This may have a role. History of using coke in the past. I discussed with the patient regarding quitting drugs and quitting smoking. homocysteine, lupus anticoagulant testing as these are the arterial causes of thrombosis. Patent foramen ovale + cardiology following - no DVT in leg 2. History of migraine. 3. History of chronic obstructive pulmonary disease. 4. History of nephrolithiasis. 5. History of sciatica and scoliosis. 6. Lower extremity Doppler was negative for deep vein thrombosis. 7. Echo has been ordered. 8. Patent foramen ovale. smoking - adv to quit at this time PFO and smoking - may have a role in the TIA Due JANET - Patient Problems (1) TIA (transient ischemic attack) Current Visit: Yes Status: Acute Subjective Date of service: 04/04/19 Principal diagnosis: TIA Interval history: still smoking - adv to quit due JANET Objective - Exam Narrative Exam: Pain - none General appearance no acute distress Performance status ambulating Eyes - no icterus ENT no thrush LNs cervical not palpable Neck - normal ROM Respiratory Normal Breath sounds - CTA CVS S1 S2 + Extremities normal temperature General GI Soft Rectal deferred male - deferred Skin warm Musculoskeletal moving normal Neurologically no focal deficit - Constitutional Vitals: Last Vital Signs Temp 97.7 F 04/04/19 03:49 Pulse 68 04/04/19 03:49 Resp 16 04/04/19 03:49 BP 98/46 04/04/19 03:49 Pulse Ox 97 04/04/19 03:49 - Labs Lab Results: Laboratory Results - last 24 hr 04/03/19 04/03/19 04/04/19 08:23 08:23 04:47 WBC 7.4 6.4 RBC 5.88 H 5.67 H Hgb 16.3 H 15.4 H Hct 48.4 H 47.4 H MCV 82 L 84 MCH 28 27 L MCHC 34 32 RDW 14.6 14.9 Plt Count 293 250 Lymph % (Auto) 34.5 [place] % (Auto) 12.8 H Eos % (Auto) 1.9 Baso % (Auto) 1.0 Lymph # 2.5 [place] # 0.9 H Eos # 0.1 Baso # 0.1 Add Manual Diff Complete Seg Neutrophils % 49.8 Nucleated RBC % Not Reportable Seg Neutrophils # 3.7 WBC Morphology Not Reportable Hypersegmented Neuts Not Reportable Hyposegmented Neuts Not Reportable Hypogranular Neuts Not Reportable Smudge Cells Not Reportable Toxic Granulation Not Reportable Toxic Vacuolation Not Reportable Dohle Bodies Not Reportable Pelger-Huet Anomaly Not Reportable Deejay Rods Not Reportable Platelet Estimate Not Reportable Clumped Platelets Not Reportable Plt Clumps, EDTA Not Reportable Large Platelets Not Reportable Giant Platelets Not Reportable Platelet Satelliting Not Reportable Plt Morphology Comment Not Reportable RBC Morphology Not Reportable Dimorphic RBCs Not Reportable Polychromasia Not Reportable Hypochromasia Not Reportable Poikilocytosis Not Reportable Anisocytosis Not Reportable Microcytosis Not Reportable Macrocytosis Not Reportable Spherocytes Not Reportable Pappenheimer Bodies Not Reportable Sickle Cells Not Reportable Target Cells Not Reportable Tear Drop Cells Not Reportable Ovalocytes Not Reportable Helmet Cells Not Reportable Desir-[place] Bodies Not Reportable [place] Rings Not Reportable [place] Cells Not Reportable Bite Cells Not Reportable Crenated Cell Not Reportable Elliptocytes Not Reportable Acanthocytes (Spur) Not Reportable Rouleaux Not Reportable Hemoglobin C Crystals Not Reportable Schistocytes Not Reportable Malaria parasites Not Reportable Roland Bodies Not Reportable Hem Pathologist Commnt Not Reportable Sodium 140 Potassium 4.2 Chloride 101.8 Carbon Dioxide 26 Anion Gap 16 BUN 11 Creatinine 1.0 Estimated GFR > 60 BUN/Creatinine Ratio 11 Glucose 99 Calcium 9.1 Total Bilirubin 0.20 AST 16 ALT 15 Alkaline Phosphatase 116 Total Protein 7.3 Albumin 4.2 Albumin/Globulin Ratio 1.4 04/04/19 04:47 WBC RBC Hgb Hct MCV MCH MCHC RDW Plt Count Lymph % (Auto) [place] % (Auto) Eos % (Auto) Baso % (Auto) Lymph # [place] # Eos # Baso # Add Manual Diff Seg Neutrophils % Nucleated RBC % Seg Neutrophils # WBC Morphology Hypersegmented Neuts Hyposegmented Neuts Hypogranular Neuts Smudge Cells Toxic Granulation Toxic Vacuolation Dohle Bodies Pelger-Huet Anomaly Deejay Rods Platelet Estimate Clumped Platelets Plt Clumps, EDTA Large Platelets Giant Platelets Platelet Satelliting Plt Morphology Comment RBC Morphology Dimorphic RBCs Polychromasia Hypochromasia Poikilocytosis Anisocytosis Microcytosis Macrocytosis Spherocytes Pappenheimer Bodies Sickle Cells Target Cells Tear Drop Cells Ovalocytes Helmet Cells Desir-[place] Bodies [place] Rings [place] Cells Bite Cells Crenated Cell Elliptocytes Acanthocytes (Spur) Rouleaux Hemoglobin C Crystals Schistocytes Malaria parasites Roland Bodies Hem Pathologist Commnt Sodium 140 Potassium 3.9 Chloride 105.6 Carbon Dioxide 23 Anion Gap 15 BUN 14 Creatinine 1.0 Estimated GFR > 60 BUN/Creatinine Ratio 14 Glucose 104 H Calcium 8.5 Total Bilirubin AST ALT Alkaline Phosphatase Total Protein Albumin Albumin/Globulin Ratio Medications & Allergies - Medications Allergies/Adverse Reactions: Allergies nalbuphine HCl [From Nubain] Allergy (Intermediate, Verified 03/30/19 15:55) Hives Home Medications: Home Medications Medication Instructions Recorded Confirmed Last Taken Type Gabapentin [Neurontin] 400 mg PO TID 10/13/15 03/30/19 03/29/19 History Dicyclomine [Bentyl] 10 mg PO DAILY 03/28/19 03/30/19 03/29/19 History Sertraline [Zoloft] 50 mg PO QDAY 03/28/19 03/30/19 03/29/19 History traZODone [Desyrel] 100 mg PO QHS 03/28/19 03/30/19 03/29/19 History Active Medications: Generic Name Dose Route Start Last Admin Trade Name Freq PRN Reason Stop Dose Admin Acetaminophen 650 mg 03/30/19 19:35 04/01/19 19:14 Tylenol PO 650 mg Q4H PRN Administration Pain, Mild (1-3) Aspirin 325 mg 03/31/19 10:00 04/03/19 09:15 Aspirin PO 325 mg QDAY PAUL Administration Atorvastatin Calcium 40 mg 03/30/19 22:00 04/03/19 23:09 Lipitor PO 40 mg QHS PAUL Administration Bisacodyl 10 mg 03/30/19 19:35 Dulcolax [place] QDAY PRN Constipation Dicyclomine HCl 10 mg 03/31/19 10:00 04/03/19 09:15 Bentyl PO 10 mg DAILY PAUL Administration Gabapentin 400 mg 03/30/19 20:00 04/03/19 23:08 Neurontin PO 400 mg TID PAUL Administration Magnesium Hydroxide 30 ml 03/30/19 19:35 Milk Of Magnesia PO Q4H PRN Constipation Metoclopramide HCl 10 mg 03/30/19 19:35 Reglan PO Q6H PRN Nausea And Vomiting Nicotine 21 mg 04/02/19 12:00 04/03/19 09:16 Habitrol TD 21 mg QDAY PAUL Administration Ondansetron HCl 4 mg 03/30/19 19:35 Zofran IV Q8H PRN Nausea And Vomiting Oxycodone/Acetaminophen 1 tab 04/01/19 21:21 04/02/19 08:13 Percocet 5/325 PO 1 tab Q4H PRN Administration Pain, Moderate (4-6) Promethazine HCl 25 mg 03/30/19 19:35 Phenergan [place] Q6H PRN Nausea And Vomiting Sertraline HCl 50 mg 03/31/19 10:00 04/03/19 09:16 Zoloft PO 50 mg QDAY PAUL Administration Sodium Chloride 10 ml 03/30/19 19:35 04/03/19 23:11 Sodium Chloride Flush Syringe 10 Ml IV 10 ml PRN PRN Administration LINE FLUSH Trazodone HCl 100 mg 03/30/19 22:00 04/03/19 23:09 Desyrel PO 100 mg QHS PAUL Administration
[2019-04-04] MEDS ORDERED: NACL 0.9% 500 ML 500 ML ONE (09:55)
[2019-04-04] MEDS ORDERED: XYLOCAINE MPF 2% ONE (10:00)
[2019-04-04] MEDS ORDERED: NACL 0.9% 500 ML 500 ML IV SCH (10:00)
[2019-04-04] MEDS ORDERED: HURRICAINE ONE 20% TOPICAL SPRAY MM NR (10:00)
[2019-04-04] MEDS ORDERED: SUBLIMAZE ONE (10:06)
[2019-04-04] MEDS ORDERED: DIPRIVAN 10 MG/ML IV ONE ×2 (10:06)
[2019-04-04] MEDS ORDERED: VERSED IV ONE (10:07)
[2019-04-04] MEDS: ASPIRIN PO SCH (10:09)
--- NOTE | 2019-04-04 10:10 | Anesthesia Consultation ---
Anesthesia Consult and Med Hx Date of service: 04/04/19 - Airway Anesthetic Teeth Evaluation: Good ROM Head & Neck: Adequate Mental/Hyoid Distance: Adequate Mallampati Class: Class II Intubation Access Assessment: Probably Good - Pre-Operative Health Status ASA Pre-Surgery Classification: ASA3 Proposed Anesthetic Plan: MAC - Pulmonary Hx Smoking: Yes (1 PPD X 38 YRS) Hx Asthma: No COPD: Yes (NO MEDS) Hx Sleep Apnea: No (MEÑO PRE SCREEN LOW RISK.) - Cardiovascular System Hx Hypertension: No Hx Heart Attack/AMI: No Hx Pacemaker: No Hx Internal Defibrillator: No Hx Heart Murmur: Yes (patent PFO) - Central Nervous System Hx Neuromuscular Disorder: Yes (lumbar neuropathy) CVA: Yes (multiple TIA/strokes) Hx Back Pain: Yes (TO RT LEG ( CHRONIC)) Hx Psychiatric Problems: Yes (anxiety) - Gastrointestinal Hx Ulcer: Yes - Endocrine Hx Renal Disease: No Hx Liver Disease: No - Hematic Hx Sickle Cell Disease: No - Other Systems Hx Substance Use: Yes (cocaine) Hx Cancer: No
--- NOTE | 2019-04-04 10:11 | Anesthesia Day of Surgery ---
Anesthesia Day of Surgery - Day of Surgery Patient Examined: Yes Patient H&P Reviewed: Yes Patient is NPO: Yes
--- NOTE | 2019-04-04 12:01 | Progress Note ---
Assessment and Plan s/p JANET this AM which confirmed PFO. Initiate Plavix, cont ASA 325mg daily. Recommend OP consultation with Dr. Ellis at [place] for possible PFO closure. Currently stable cardiac status. Nothing further to add from cardiac perspective at this time. Will sign off. Follow up in our [place] office with Dr. Tori Cuadra on 04/21/2019 @ 3:00PM. Follow up at [facility] for consultation with Dr. Ellis on 05/29/2019 @ 2:00PM. (a sooner appointment may be available pending approval by Dr. Ellis - our office will contact pt if earlier appt is available) The patient has been seen in conjunction with Dr. Tori Cuadra who agrees with the assessment and plan of care. - Patient Problems (1) Acute CVA (cerebrovascular accident) Current Visit: Yes Status: Acute (2) PFO (patent foramen ovale) Current Visit: Yes Status: Chronic (3) Tobacco use Current Visit: Yes Status: Chronic (4) History of cocaine use Current Visit: Yes Status: Chronic (5) GERD (gastroesophageal reflux disease) Current Visit: Yes Status: Chronic Qualifiers: Esophagitis presence: without esophagitis Qualified Code(s): K21.9 - Gastro-esophageal reflux disease without esophagitis Subjective Date of service: 04/04/19 Principal diagnosis: TIA Interval history: pt for JANET today, no current cardiac complaints. tele reviewed - in SR. Objective Last Vital Signs Temp 97.7 F 04/04/19 10:46 Pulse 64 04/04/19 11:29 Resp 12 04/04/19 11:29 BP 113/78 04/04/19 11:29 Pulse Ox 98 04/04/19 11:29 - Physical Examination General: No Apparent Distress HEENT: Positive: PERRL, Normocephaly, Mucus Membranes Moist Neck: Positive: neck supple, trachea midline Cardiac: Positive: Reg Rate and Rhythm, S1/S2 Lungs: Positive: Decreased Breath Sounds Neuro: Positive: Grossly Intact Abdomen: Negative: Tender Skin: Negative: Rash Musculoskeletal: No Pain Extremities: Absent: edema - Labs and Meds CBC 04/04/19 Range/Units 04:47 WBC 6.4 (4.5-11.0) K/mm3 RBC 5.67 H (3.65-5.03) M/mm3 Hgb 15.4 H (11.8-15.2) gm/dl Hct 47.4 H (35.5-45.6) % Plt Count 250 (140-440) K/mm3 Comprehensive Metabolic Panel 04/04/19 Range/Units 04:47 Sodium 140 (137-145) mmol/L Potassium 3.9 (3.6-5.0) mmol/L Chloride 105.6 (98-107) mmol/L Carbon Dioxide 23 (22-30) mmol/L BUN 14 (9-20) mg/dL Creatinine 1.0 (0.8-1.5) mg/dL Glucose 104 H (75-100) mg/dL Calcium 8.5 (8.4-10.2) mg/dL - Imaging and Cardiology EKG: report reviewed, image reviewed Echo: report reviewed ( EF 55-60%, mild LVH, trace MR, trace TR, PFO ) - Telemetry EKG Rhythm: Sinus Rhythm - EKG Sinus rhythms and dysrhythmias: sinus rhythm
[2019-04-04] MEDS: NEURONTIN PO SCH (12:08)
[2019-04-04 12:30] VITALS: BP 117/69
--- NOTE | 2019-04-04 14:42 | Discharge Summary ---
Providers - Providers Date of Admission: 03/30/19 19:35 Date of discharge: 04/04/19 Attending physician: ESTUARDO TOMLINSON 03/30/19 19:35 Occupational Therapy Evaluate and Treat [CONS] Routine Comment: Reason For Exam: Neuro deficits Physical Therapy Evaluation and Treat [CONS] Routine Comment: Reason For Exam: Neuro deficits 03/30/19 19:38 Consult to Physician [CONS] Routine Comment: Consulting Provider: RAVINDRA LANCE Physician Instructions: Reason For Exam: cva 03/31/19 12:36 Consult to Physician [CONS] Routine Comment: Consulting Provider: JOSE ALBERTO ROBERSON Physician Instructions: Reason For Exam: hypercoagulable work up 04/03/19 10:47 Consult to Physician [CONS] Routine Comment: Consulting Provider: MELVIN FERNANDEZ Physician Instructions: Reason For Exam: PFO/stroke [facility] Reason for admission: Acute CVA. Condition: Stable Pertinent studies: MRI BRAIN: Subacute ischemia in the LT cerebral hemisphere MRA head: Negative ECHO: PFO, EF:55-60% Procedures: JANET Hospital course: FINAL DISCHARGE DIAGNOSIS: Subacute LT cerebral ischemia PFO DDD (L5-S1) Migraine headache GERD. COPD Sciatica. History of polysubstance use (tobacco abd cocaine) Pt was admitted and placed on stroke protocol. Further evaluation with MRI brain confirmed the stroke. TTE done showed PFO with normal EF. Subsequently, JANET was done to further evaluate for embolic source, which confirmed the PFO. Post- procedure, the pt was monitored without any adverse events and was then deemed stable for discharge after clearance by the sub-specialty physicians consulted. On discharge, the pt was counselled on tobacco and cocaine use cessation, which he verbalized understanding. He was offered nicotine patch, which he accepted. Disposition: DC-01 TO HOME OR SELFCARE Time spent for discharge: 38 Minutes Core Measure Documentation - Palliative Care Palliative Care/ Comfort Measures: Not Applicable - Core Measures Any of the following diagnoses?: stroke - Stroke Discharge Requirements Statin for LDL = or >70 mg/dl on DC: Yes Anticoag for atrial fib/atrial flutter: Not Applicable Antithrombotic for ischemic stroke: Yes Exam - Constitutional Vitals: Temp Pulse Resp BP Pulse Ox 98.6 F 50 L 18 117/69 96 04/04/19 11:58 04/04/19 11:58 04/04/19 11:58 04/04/19 11:58 04/04/19 11:58 General appearance: Present: no acute distress - EENT Eyes: Present: PERRL, EOM intact ENT: hearing intact, clear oral mucosa - Neck Neck: Present: supple, normal ROM - Respiratory Respiratory effort: normal Respiratory: bilateral: CTA - Cardiovascular Rhythm: regular Heart Sounds: Present: S1 & S2. Absent: rub, click - Extremities Extremities: pulses symmetrical, No edema Peripheral Pulses: within normal limits - Abdominal General gastrointestinal: Present: soft, non-tender, non-distended, normal bowel sounds Male genitourinary: Present: normal - Integumentary Integumentary: Present: clear, warm, dry - Musculoskeletal Musculoskeletal: gait normal, strength equal bilaterally - Psychiatric Psychiatric: appropriate mood/affect, intact judgment & insight - Neurologic Neurologic: CNII-XII intact, moves all extremities Plan Follow up with: KENNY HORTA MD [Referring] - 7 Days (05/29/2019 @ 2:00PM.) ES GRANT MD [Staff Physician] - 7 Days ([place] office with Dr. Tori Grant on 04/21/2019 @ 3:00PM. ) [facility] MD ANAHI [Primary Care Provider] - 3-5 Days Prescriptions: AtorvaSTATin [Lipitor] 40 mg PO QHS #30 tab Aspirin [Adult Aspirin] 81 mg PO DAILY #30 tablet. Nicotine [Habitrol] 21 mg TD QDAY #21 patch Clopidogrel [Plavix] 75 mg PO QDAY #30 tablet
[2019-04-05] MEDS ORDERED: PLAVIX PO SCH (10:00)
[2019-04-05 11:17] LABS: Protein S, Free 83 % normal (57-171); Protein S, Total 88 % normal (70-140)
== END 2019-04-04 17:03 | disposition home or self-care (01) | DRG 69 ==
LOC: ED 15:17 → 4A 19:35
PROVIDERS: ADMIT Internal Medicine; ATTEND Internal Medicine
DX: I67.82 Cerebral ischemia (principal); I51.0 Cardiac septal defect, acquired; K21.9 Gastro-esophageal reflux disease without esophagitis; J44.9 Chronic obstructive pulmonary disease, unspecified; M54.30 Sciatica, unspecified side; G43.909 Migraine, unspecified, not intractable, without status migrainosus; F17.200 Nicotine dependence, unspecified, uncomplicated; M51.37 Other intervertebral disc degeneration, lumbosacral region; M19.90 Unspecified osteoarthritis, unspecified site; F41.9 Anxiety disorder, unspecified; Z72.89 Other problems related to lifestyle; Z71.6 Tobacco abuse counseling; Z79.899 Other long term (current) drug therapy; Z87.442 Personal history of urinary calculi; Z82.49 Family history of ischemic heart disease and other diseases of the circulatory system; Z71.51 Drug abuse counseling and surveillance of drug abuser
CPT/HCPCS: 36415; 70450; 70496; 70498; 70544; 70551; 72100; 80048; 80053; 80061; 80307; 82024; 83516; 84484; 85007; 85025; 85027; 85220; 85305; 85610; 85613; 85670; 85730; 93005; 93010; 93306; 93312; 93320; 93325; 93880; 93970; 99406; G0378; A9270-GY; A9577; J2250; J2704; J3010; J7040; Q9967

== ENCOUNTER 2019-05-09 23:48 | Emergency (ER) | payer MEDICAID ==
[2019-05-10 00:56] VITALS: BP 130/90
[2019-05-10] MEDS ORDERED: AUGMENTIN 875 MG PO ONE (05:57)
[2019-05-10] MEDS ORDERED: IBUPROFEN PO ONE (05:57)
[2019-05-10] MEDS ORDERED: NORCO 5/325 PO ONE (05:57)
--- NOTE | 2019-05-10 06:21 | Emergency Department Report ---
ED General Adult HPI - General Chief complaint: Dental/Oral Stated complaint: TOOTHACHE Source: patient Mode of arrival: Ambulatory Limitations: No Limitations - History of Present Illness Initial comments: Patient is a 49-year-old -[place] male with no past medical history presents the ED with complaint of acute onset persistent painful swollen left maxillary gums and premolar and molar toothaches with diffuse dental caries for the last 1 week, worse in the last 2 days. Patient states that he has not been able to sleep for the last 2 days because of ear toothache. Patient denies fever, chills, nausea, vomiting, neck pain, sore throat, cough, dizziness, change in vision or traumatic injury. MD Complaint: dental pain, swollen gums -: Sudden, week(s) (1) Location: mouth Radiation: non-radiation Severity scale (0 -10): 7 Quality: aching, sharp Consistency: constant Improves with: none Worsens with: none Associated Symptoms: denies other symptoms, headaches. denies: cough, diaphoresis, loss of appetite, malaise, nausea/vomiting, rash, shortness of breath, syncope, weakness Treatments Prior to Arrival: none - Related Data Home Medications Medication Instructions Recorded Confirmed Last Taken Gabapentin [Neurontin] 400 mg PO TID 10/13/15 03/30/19 03/29/19 Sertraline [Zoloft] 50 mg PO QDAY 03/28/19 03/30/19 03/29/19 traZODone [Desyrel] 100 mg PO QHS 03/28/19 03/30/19 03/29/19 Previous Rx's Medication Instructions Recorded Last Taken Type Aspirin [Adult Aspirin] 81 mg PO DAILY #30 tablet. 04/04/19 Unknown Rx AtorvaSTATin [Lipitor] 40 mg PO QHS #30 tab 04/04/19 Unknown Rx Clopidogrel [Plavix] 75 mg PO QDAY #30 tablet 04/04/19 Unknown Rx Nicotine [Habitrol] 21 mg TD QDAY #21 patch 04/04/19 Unknown Rx Acetaminophen/Codeine [Tylenol 1 tab PO Q6H PRN #12 tab 05/10/19 Unknown Rx /Codeine # 3 tab] Clindamycin [Clindamycin CAP] 300 mg PO Q8HR #60 capsule 05/10/19 Unknown Rx Ketorolac [Toradol] 10 mg PO Q8H PRN #20 tablet 05/10/19 Unknown Rx Allergies Allergy/AdvReac Type Severity Reaction Status Date / Time nalbuphine HCl [From Nubain] Allergy Intermediate Hives Verified 03/30/19 15:55 ED Review of Systems ROS: Stated complaint: TOOTHACHE Other details as noted in HPI Constitutional: denies: chills, fever Eyes: denies: eye pain, eye discharge, vision change ENT: dental pain. denies: ear pain, throat pain, epistaxis, congestion Respiratory: denies: cough, shortness of breath, wheezing Cardiovascular: denies: chest pain, palpitations Endocrine: no symptoms reported Gastrointestinal: denies: abdominal pain, nausea, diarrhea Genitourinary: denies: urgency, dysuria Musculoskeletal: denies: back pain, joint swelling, arthralgia Skin: denies: rash, lesions Neurological: denies: headache, weakness, paresthesias Psychiatric: denies: anxiety, depression Hematological/Lymphatic: denies: easy bleeding, easy bruising ED Past Medical Hx - Past Medical History Hx Hypertension: No Hx CVA: No Hx Heart Attack/AMI: No Hx Congestive Heart Failure: No Hx Diabetes: No Hx Deep Vein Thrombosis: No Hx Pulmonary Embolism: No Hx GERD: Yes Hx Liver Disease: No Hx Renal Disease: No Hx Sickle Cell Disease: No Hx Arthritis: Yes Hx Headaches / Migraines: Yes (MIGRAINES) Hx Kidney Stones: Yes Hx Psychiatric Treatment: No Hx Asthma: No Hx COPD: Yes (NO MEDS) Hx Tuberculosis: Yes (POSITIVE SKIN TEST,TOOK TX,NEG CXR ) Hx HIV: No Additional medical history: Lumbar neuropathy. sciatica. Mild scoliosis - Surgical History Hx Coronary Stent: No Hx Open Heart Surgery: No Hx Pacemaker: No Hx Internal Defibrillator: No Hx Cholecystectomy: No Hx Appendectomy: No Hx Breast Surgery: No Additional Surgical History: right foot surgery. Bilateral hernia repair - Social History Smoking Status: Current Every Day Smoker - Medications Home Medications: Home Medications Medication Instructions Recorded Confirmed Last Taken Type Gabapentin [Neurontin] 400 mg PO TID 10/13/15 03/30/19 03/29/19 History Sertraline [Zoloft] 50 mg PO QDAY 03/28/19 03/30/19 03/29/19 History traZODone [Desyrel] 100 mg PO QHS 03/28/19 03/30/19 03/29/19 History Aspirin [Adult Aspirin] 81 mg PO DAILY #30 tablet. 04/04/19 Unknown Rx AtorvaSTATin [Lipitor] 40 mg PO QHS #30 tab 04/04/19 Unknown Rx Clopidogrel [Plavix] 75 mg PO QDAY #30 tablet 04/04/19 Unknown Rx Nicotine [Habitrol] 21 mg TD QDAY #21 patch 04/04/19 Unknown Rx Acetaminophen/Codeine [Tylenol 1 tab PO Q6H PRN #12 tab 05/10/19 Unknown Rx /Codeine # 3 tab] Clindamycin [Clindamycin CAP] 300 mg PO Q8HR #60 capsule 05/10/19 Unknown Rx Ketorolac [Toradol] 10 mg PO Q8H PRN #20 tablet 05/10/19 Unknown Rx ED Physical Exam - General Limitations: No Limitations General appearance: alert, in no apparent distress - Head Head exam: Present: atraumatic, normocephalic, normal inspection - Eye Eye exam: Present: normal appearance, PERRL, EOMI Pupils: Present: normal accommodation - ENT ENT exam: Present: normal exam, mucous membranes moist, TM's normal bilaterally, normal external ear exam, other (severely tender left maxillary lateral premolar and molar teeth, swollen left maxillary gum) - Neck Neck exam: Present: normal inspection, full ROM, lymphadenopathy. Absent: tenderness, meningismus - Respiratory Respiratory exam: Present: normal lung sounds bilaterally. Absent: respiratory distress, chest wall tenderness, accessory muscle use, decreased breath sounds - Cardiovascular Cardiovascular Exam: Present: regular rate, normal rhythm. Absent: systolic murmur, diastolic murmur, rubs, gallop - GI/Abdominal GI/Abdominal exam: Present: soft, normal bowel sounds. Absent: tenderness, guarding, rebound - Rectal Rectal exam: Present: deferred - Extremities Exam Extremities exam: Present: normal inspection, full ROM, normal capillary refill - Back Exam Back exam: Present: normal inspection, full ROM. Absent: tenderness, CVA tenderness (R), CVA tenderness (L), muscle spasm, paraspinal tenderness, vertebral tenderness - Neurological Exam Neurological exam: Present: alert, oriented X3, CN II-XII intact, normal gait, reflexes normal - Psychiatric Psychiatric exam: Present: normal affect, normal mood - Skin Skin exam: Present: warm, dry, intact, normal color. Absent: rash ED Course Vital Signs 05/10/19 00:54 Temperature 97.3 F L Pulse Rate 83 Respiratory 18 Rate Blood Pressure 130/90 O2 Sat by Pulse 94 Oximetry - Reevaluation(s) Reevaluation #1: 05/10/19 06:24 This is a 49-year-old male who presented to the ED with left maxillary premolar and molar toothaches. In the ED, patient is alert and oriented 3 and is not in distress with normal vital signs. Patient was treated for pain and discharged home on pain medications and antibiotics, and advised to follow-up with his primary care physician or dentist in 7-10 days for reevaluation. Patient was also advised to return to the ED immediately if symptoms get worse. ED Medical Decision Making - Medical Decision Making This is a 49-year-old male who presented to the ED with left maxillary premolar and molar toothaches. In the ED, patient is alert and oriented 3 and is not in distress with normal vital signs. Patient was treated for pain and discharged home on pain medications and antibiotics, and advised to follow-up with his primary care physician or dentist in 7-10 days for reevaluation. Patient was also advised to return to the ED immediately if symptoms get worse. - Differential Diagnosis dental abscess; gingivitis, dental caries Critical care attestation.: If time is entered above; I have spent that time in minutes in the direct care of this critically ill patient, excluding procedure time. ED Disposition Clinical Impression: Dental abscess, Dental caries, Chronic gingivitis Disposition: DC-01 TO HOME OR SELFCARE Is pt being admited?: No Does the pt Need Aspirin: No Condition: Stable Instructions: Dental Abscess (ED), Dental Caries (ED), Gingivitis (ED) Additional Instructions: Take medications with food, drink plenty of fluids and follow-up with the dentist in 7-10 days for reevaluation. Return to the ED immediately if symptoms get worse. Prescriptions: Clindamycin [Clindamycin CAP] 300 mg PO Q8HR #60 capsule Ketorolac [Toradol] 10 mg PO Q8H PRN #20 tablet PRN Reason: Pain Acetaminophen/Codeine [Tylenol /Codeine # 3 tab] 1 tab PO Q6H PRN #12 tab PRN Reason: Pain , Severe (7-10) Referrals: PRIMARY CARE, [Primary Care Provider] - 3-5 Days Time of Disposition: 06:15 Print Language: FRISIAN
== END 2019-05-10 06:20 | disposition home or self-care (01) ==
LOC: ED 23:48
DX: K04.7 Periapical abscess without sinus (principal); K05.10 Chronic gingivitis, plaque induced; K02.9 Dental caries, unspecified; K21.9 Gastro-esophageal reflux disease without esophagitis; M19.90 Unspecified osteoarthritis, unspecified site; G43.909 Migraine, unspecified, not intractable, without status migrainosus; J44.9 Chronic obstructive pulmonary disease, unspecified; F17.200 Nicotine dependence, unspecified, uncomplicated; G54.1 Lumbosacral plexus disorders; Z88.8 Allergy status to other drugs, medicaments and biological substances
CPT/HCPCS: 99282

== ENCOUNTER 2020-08-12 07:22 | Day surgery (SDC) | payer MEDICAID ==
[~2020-08-12 07:22] MED LIST changes: +ACETAMINOPHEN 500 MG TAB PO SCH; +CELECOXIB 200 MG CAP PO NR; +GABAPENTIN 300 MG CAP PO NR; +LACTATED RINGERS 1,000 ML IV SCH; +MIDAZOLAM 2 MG/2 ML INJ IV NR; -ROBINUL ONE; -XYLOCAINE MPF 2% ONE
--- NOTE | 2020-08-12 08:19 | Anesthesia Consultation ---
Anesthesia Consult and Med Hx Date of service: 08/12/20 - Airway Anesthetic Teeth Evaluation: Poor ROM Head & Neck: Adequate Mental/Hyoid Distance: Adequate Mallampati Class: Class II Intubation Access Assessment: Probably Good - Pulmonary Exam CTA: Yes - Cardiac Exam Cardiac Exam: RRR - Pre-Operative Health Status ASA Pre-Surgery Classification: ASA3 Proposed Anesthetic Plan: General - Pulmonary Hx Smoking: Yes (39pk yr hx) Hx Respiratory Symptoms: No COPD: Yes (no inhalers) Home Oxygen Therapy: No Hx Sleep Apnea: No (MEÑO PRE SCREEN LOW RISK.) - Cardiovascular System Hx Hypertension: Yes (prior diagnosis but patient reports noncompliance with previous rx.) Hx Heart Attack/AMI: No Hx Percutaneous Transluminal Coronary Angioplasty (PTCA): No Hx Cardia Arrhythmia: No Hx Valvular Heart Disease: Yes (PFO) - Central Nervous System CVA: Yes (CVA x2, most recent ) Hx Back Pain: Yes (TO RT LEG (CHRONIC)) Hx Psychiatric Problems: Yes (anxiety/depression) - Endocrine Hx Renal Disease: No Hx Liver Disease: No 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
[2020-08-12] MEDS ORDERED: ONDANSETRON 4 MG/2 ML INJ IV PRN (08:22)
--- NOTE | 2020-08-12 08:22 | Anesthesia Day of Surgery ---
Anesthesia Day of Surgery - Day of Surgery Patient Examined: Yes Patient H&P Reviewed: Yes Patient is NPO: Yes
[2020-08-12] MEDS ORDERED: ceFAZolin/STERILE WATER 2 GM/20 ML SYRINGE IV NR (09:00)
[2020-08-12] MEDS ORDERED: LIDOCAINE MPF (2%) 20 MG/1 ML VIAL 5 ML ONE (09:35)
[2020-08-12] MEDS ORDERED: NEOMY 40 MG/POLYMYXIN B 200,000 UNITS/ML (GU) AMPULE IR ONE ×2 (09:35→10:29)
[2020-08-12] MEDS ORDERED: BUPIVACAINE/PF (0.25%) 2.5 MG/ML 30 ML VIAL INFILTRATI ONE ×2 (09:35→10:28)
[2020-08-12] MEDS ORDERED: HYDROmorphone 1 MG/1 ML INJ ONE (09:35)
[2020-08-12] MEDS ORDERED: propofoL 200 MG/20 ML VIAL IV ONE (09:35)
[2020-08-12] MEDS ORDERED: ROCURONIUM 50 MG/5 ML INJ IV ONE (09:36)
[2020-08-12] MEDS ORDERED: SODIUM CHLORIDE 0.9% IRR 1,500 ML BOTTLE IR ONE (10:30)
[2020-08-12] MEDS ORDERED: GLYCOPYRROLATE 0.4 MG/2 ML INJ ONE (10:32)
[2020-08-12] MEDS ORDERED: NEOSTIGMINE 10MG/10 ML INJ MDV ONE (10:32)
[2020-08-12] MEDS ORDERED: ONDANSETRON 4 MG/2 ML INJ ONE (10:33)
[2020-08-12] MEDS ORDERED: KETOROLAC 30 MG/1 ML INJ ONE (10:33)
[2020-08-12] MEDS ORDERED: LACTATED RINGERS 1,000 ML ONE (10:46)
[2020-08-12] MEDS: HYDROmorphone 1 MG/1 ML INJ IV PRN ×2 (11:10→11:20)
--- NOTE | 2020-08-12 11:18 | Operative Report ---
PREOPERATIVE DIAGNOSIS: Recurrent inguinal hernia. POSTOPERATIVE DIAGNOSIS: Recurrent inguinal hernia. PROCEDURE: Left inguinal hernia repair, recurrent. SURGEON: Dr. Salazar. ANESTHESIA: General. FINDINGS: This is a gentleman who has had hernia repairs probably when he was very, very young. He has a defect that is protruding almost at the level of the tubercle. He now presents for repair. DESCRIPTION OF PROCEDURE: The patient was brought to the operating room and placed on the operating table. Following induction of anesthesia, placed over the breaking table, prepped and draped in the usual sterile fashion. The old incision was seen and you could see that there is a defect with severe scarring around the cord. Once we got to the tubercle, we dissected the cord out at the level of the tubercle and they were newly created ring and at the level of the tubercle, there was a 1 cm defect, we can carry underneath into the floor of the canal. Severe scarring all over the top of the cord and surrounding the cord. The cord was isolated with an umbilical tape. Careful attention was made not to damage the cord. At this point, we isolated the defect and we could easily place a plug in that hole and secured it ____ Bassini repair with tissue around it once the plug was then placed. We did not want to place a keyhole around it because there was no good tissue around the scarring and we could see the old sutures. The patient tolerated the procedure well. A plug was placed not too tight and then we secured it with a Bassini type repair. The patient tolerated the procedure well. Wound was irrigated. Superficial fascia was closed with 2-0 and 3-0 Vicryl and skin with clips, brought to recovery in stable condition. Minimal blood loss less than 5 mL. JOB# [id number] JOHN/JV
--- NOTE | 2020-08-12 11:19 | Post Operative Note ---
Date of procedure: 08/12/20 Pre-op diagnosis: LIH Post-op diagnosis: same Findings: recurrent Procedure: lih repair Anesthesia: GETA Surgeon: CAMACHO TRIPLETT Estimated blood loss: minimal Pathology: none Condition: stable Disposition: PACU
--- NOTE | 2020-08-12 11:20 | Discharge Summary ---
Short Stay Discharge Plan Activity: other (no straining ) Weight Bearing Status: Full Weight Bearing Diet: regular, low fat, low cholesterol Wound: open to air Special Instructions: other (dressing in 48 hrs ) Follow up with: JESSY SMITH MD [Primary Care Provider] - 7 Days CAMACHO TRIPLETT MD [Staff Physician] - 14 Days
[2020-08-12] MEDS ORDERED: HYDROcodone/ACETAMINOPHEN 5-325 MG TAB PO PRN (12:00)
[2020-08-12 12:21] VITALS: BP 138/90
--- NOTE | 2020-08-12 13:10 | Post Anesthesia Evaluation ---
- Post Anesthesia Evaluation Patient Participated: Yes Airway Patent: Yes Stable Respiratory Function: Yes Nausea/Vomiting: No Temp > 96.8F: Yes Pain Manageable: Yes Adequeate Hydration: Yes Anesthesia Complications: No
== END 2020-08-12 07:23 | disposition home or self-care (01) ==
LOC: OR 07:22
PROVIDERS: ATTEND Urology
DX: K40.91 Unilateral inguinal hernia, without obstruction or gangrene, recurrent (principal); G43.909 Migraine, unspecified, not intractable, without status migrainosus; J44.9 Chronic obstructive pulmonary disease, unspecified; K21.9 Gastro-esophageal reflux disease without esophagitis; G62.9 Polyneuropathy, unspecified; I10 Essential (primary) hypertension; M19.90 Unspecified osteoarthritis, unspecified site; F17.210 Nicotine dependence, cigarettes, uncomplicated; E11.42 Type 2 diabetes mellitus with diabetic polyneuropathy; F32.9 Major depressive disorder, single episode, unspecified; F41.9 Anxiety disorder, unspecified; Z98.890 Other specified postprocedural states; Z88.8 Allergy status to other drugs, medicaments and biological substances; Z79.899 Other long term (current) drug therapy; Z87.898 Personal history of other specified conditions; Z87.442 Personal history of urinary calculi; Z91.81 History of falling; Z86.73 Personal history of transient ischemic attack (TIA), and cerebral infarction without residual deficits
CPT/HCPCS: 49520; 82962; C1781; J1170; J1885; J2250; J2405; J2704; J2710; J7120

== ENCOUNTER 2022-02-10 17:30 | Inpatient (IN) | payer MEDICAID ==
--- NOTE | 2022-02-10 18:07 | Emergency Department Report ---
ED Neuro Deficit HPI - General Chief Complaint: Neuro Symptoms/Deficit Stated Complaint: HEADACHE/CANT WALK Time Seen by Provider: 02/10/22 17:52 Source: patient, old records reviewed Mode of arrival: Wheelchair Limitations: No Limitations - History of Present Illness Initial Comments: 52-year-old male with previous CVA, migraine headache, PFO, cocaine abuse, history of left cerebral ischemia presents to the hospital complaining of stroke symptoms upon waking up at 5 AM. Patient does admit to using cocaine last night. He reports difficulty sleeping and taking a sleeping pill prior to waking up at 5 AM with neuro symptoms. He cannot tell me what time he went to sleep or his last normal well time prior to weakness onset. On upon waking this morning he had difficulty speaking, right-sided weakness, and was unable to ambulate for least 3 hours. Pt was at an [employer] at the time. When symptoms improved he called his . When she made contact at 4pm his neurologic symptoms had resolved but was a little wobbly with ambulation. Patient complai ns of a persistent frontal headache since waking up at 5 AM. Patient was admitted here and March 2019 with similar presentation which included headache and right-sided deficits. At that time CT head, CT angiogram head and neck were negative. MRI brain did show 3 focal areas of nonhemorrhagic subacute ischemia in the left hemisphere and MRA brain was negative. Bilateral carotid Dopplers showed less than 50% stenosis. Inpatient work-up revealed a PFO (confirmed by JANET) and positive cocaine abuse. Patient and his report that he made a full neurologic recovery since previous CVA. as per d/c summary FINAL DISCHARGE DIAGNOSIS: Subacute LT cerebral ischemia PFO DDD (L5-S1) Migraine headache GERD. COPD Sciatica. Left cerebral ischemia polysubstance use (tobacco abd cocaine) Patient's only medication trazodone and he does not currently take any anticoagulants or antiplatelet medication at this time - Related Data Home Medications: Home Medications Medication Instructions Recorded Confirmed Last Taken traZODone [Desyrel] 100 mg PO QHS 03/28/19 08/12/20 08/10/20 20:00 Allergies/Adverse Reactions: Allergies Allergy/AdvReac Type Severity Reaction Status Date / Time nalbuphine HCl [From Nubain] Allergy Intermediate Hives Verified 03/30/19 15:55 ED Review of Systems ROS: Stated complaint: HEADACHE/CANT WALK Other details as noted in HPI Comment: All other systems reviewed and negative ED Past Medical Hx - Past Medical History Hx Hypertension: Yes (prior diagnosis but patient reports noncompliance with previous rx.) Hx CVA: No Hx Heart Attack/AMI: No Hx Congestive Heart Failure: No Hx Diabetes: No (YES PER OLD CHART , PT DENIES , NO MEDS) Hx Deep Vein Thrombosis: No Hx Pulmonary Embolism: No Hx GERD: Yes Hx Liver Disease: No Hx Renal Disease: No Hx Sickle Cell Disease: No Hx Arthritis: Yes Hx Headaches / Migraines: Yes (MIGRAINES) Hx Kidney Stones: Yes Hx Psychiatric Treatment: No Hx Asthma: No Hx COPD: Yes (no inhalers) Hx Tuberculosis: Yes (POSITIVE SKIN TEST,TOOK TX,NEG CXR ) Hx HIV: No Additional medical history: Lumbar neuropathy. sciatica. Mild scoliosis - Surgical History Hx Coronary Stent: No Hx Open Heart Surgery: No Hx Pacemaker: No Hx Internal Defibrillator: No Hx Cholecystectomy: No Hx Appendectomy: No Hx Breast Surgery: No Additional Surgical History: right foot surgery. Bilateral hernia repair - Social History Smoking Status: Current Every Day Smoker - Medications Home Medications: Home Medications Medication Instructions Recorded Confirmed Last Taken Type traZODone [Desyrel] 100 mg PO QHS 03/28/19 08/12/20 08/10/20 20:00 History ED Neuro Physical Exam - General Limitations: No Limitations Suspected Stroke: Yes - NIHSS Assessment Interval: Baseline 1a. Level of Consciousness: alert/keenly responsive 1b. LOC Questions: answers both correctly 1c. LOC Commands: performs tasks correctly 2. Best Gaze: normal 3. Visual: no visual loss 4. Facial Palsy: normal symmetrical movement 5b. Motor Arm Right: no drift 5a. Motor Arm Left: no drift 6a. Motor Leg Left: no drift 6b. Motor Leg Right: no drift 7. Limb Ataxia: absent 8. Sensory: normal 9. Best Language: no aphasia 10. Dysarthria: normal 11. Extinction/Inattention: no abnormality Total Score: 0 Stroke Severity: No Stroke Symptoms - Other Other exam information: General: No acute distress Head: Atraumatic Eyes: normal appearance ENT: Moist mucous membranes, Neck: Normal appearance, no midline tenderness, neck supple Chest: Clear to auscultation bilaterally CV: Regular rate and rhythm Abdomen: Soft, normal bowel sounds, nontender, nondistended, no rebound or guarding Back: Normal inspection Extremity: Normal inspection, full range of motion Neuro: Alert O x 3, no facial asymmetry, speech clear, no gross motor sensory deficit Psych: Appropriate behavior Skin: No rash ED Course Vital Signs 02/10/22 02/10/22 17:41 18:10 Temperature 98 F Pulse Rate 98 H 62 Respiratory 16 18 Rate Blood Pressure 140/95 160/98 [Left] O2 Sat by Pulse 95 98 Oximetry - Consultations Consultation #1: 02/10/22 18:20 Case d/w neuro MD agronomy specialist (see note regarding recommendations) - Lab Data Result diagrams: 02/10/22 18:12 02/10/22 18:12 Lab Results 02/10/22 02/10/22 02/10/22 Range/Units 18:12 18:12 18:12 WBC 12.4 H (4.5-11.0) K/mm3 RBC 5.37 H (3.65-5.03) M/mm3 Hgb 14.5 (11.8-15.2) gm/dl Hct 44.1 (35.5-45.6) % MCV 82 L (84-94) fl MCH 27 L (28-32) pg MCHC 33 (32-34) % RDW 14.3 (13.2-15.2) % Plt Count 275 (140-440) K/mm3 Lymph % (Auto) 24.0 (13.4-35.0) % [place] % (Auto) 7.4 H (0.0-7.3) % Eos % (Auto) 0.5 (0.0-4.3) % Baso % (Auto) 0.3 (0.0-1.8) % Lymph # (Auto) 3.0 (1.2-5.4) K/mm3 [place] # (Auto) 0.9 H (0.0-0.8) K/mm3 Eos # (Auto) 0.1 (0.0-0.4) K/mm3 Baso # (Auto) 0.0 (0.0-0.1) K/mm3 Seg Neutrophils % 67.8 (40.0-70.0) % Seg Neutrophils # 8.4 H (1.8-7.7) K/mm3 PT 12.9 (12.2-14.9) Sec. INR 0.88 (0.87-1.13) APTT 27.3 (24.2-36.6) Sec. Thrombin Time 16.9 (15.1-19.6) Sec. Sodium 137 (137-145) mmol/L Potassium 4.0 (3.6-5.0) mmol/L Chloride 100.1 (98-107) mmol/L Carbon Dioxide 22 (22-30) mmol/L Anion Gap 19 mmol/L BUN 13 (9-20) mg/dL Creatinine 0.8 (0.8-1.3) mg/dL Estimated GFR > 60 ml/min BUN/Creatinine Ratio 16 % Glucose 99 (75-100) mg/dL Calcium 9.2 (8.4-10.2) mg/dL Total Bilirubin 0.80 (0.1-1.2) mg/dL AST 17 (5-40) units/L ALT 14 (7-56) units/L Alkaline Phosphatase 72 (35-129) units/L Total Creatine Kinase 129 (55-170) units/L CK-MB (CK-2) 1.4 (0.0-4.0) ng/mL CK-MB (CK-2) Rel Index 1.0 (0-4) Troponin T < 0.010 (0.00-0.029) ng/mL Total Protein 6.4 (6.3-8.2) g/dL Albumin 4.0 (3.9-5) g/dL Albumin/Globulin Ratio 1.7 % Plasma/Serum Alcohol (0-0.07) % 02/10/ Range/Units 18:12 WBC (4.5-11.0) K/mm3 RBC (3.65-5.03) M/mm3 Hgb (11.8-15.2) gm/dl Hct (35.5-45.6) % MCV (84-94) fl MCH (28-32) pg MCHC (32-34) % RDW (13.2-15.2) % Plt Count (140-440) K/mm3 Lymph % (Auto) (13.4-35.0) % [place] % (Auto) (0.0-7.3) % Eos % (Auto) (0.0-4.3) % Baso % (Auto) (0.0-1.8) % Lymph # (Auto) (1.2-5.4) K/mm3 [place] # (Auto) (0.0-0.8) K/mm3 Eos # (Auto) (0.0-0.4) K/mm3 Baso # (Auto) (0.0-0.1) K/mm3 Seg Neutrophils % (40.0-70.0) % Seg Neutrophils # (1.8-7.7) K/mm3 PT (12.2-14.9) Sec. INR (0.87-1.13) APTT (24.2-36.6) Sec. Thrombin Time (15.1-19.6) Sec. Sodium (137-145) mmol/L Potassium (3.6-5.0) mmol/L Chloride (98-107) mmol/L Carbon Dioxide (22-30) mmol/L Anion Gap mmol/L BUN (9-20) mg/dL Creatinine (0.8-1.3) mg/dL Estimated GFR ml/min BUN/Creatinine Ratio % Glucose (75-100) mg/dL Calcium (8.4-10.2) mg/dL Total Bilirubin (0.1-1.2) mg/dL AST (5-40) units/L ALT (7-56) units/L Alkaline Phosphatase (35-129) units/L Total Creatine Kinase (55-170) units/L CK-MB (CK-2) (0.0-4.0) ng/mL CK-MB (CK-2) Rel Index (0-4) Troponin T (0.00-0.029) ng/mL Total Protein (6.3-8.2) g/dL Albumin (3.9-5) g/dL Albumin/Globulin Ratio % Plasma/Serum Alcohol < 0.01 (0-0.07) % - EKG Data -: EKG Interpreted by Fl EKG shows normal: sinus rhythm, ST-T waves (no stemi) Rate: bradycardia (50) - Radiology Data Radiology results: report reviewed NONENHANCED CT SCAN OF THE HEAD: INDICATION / CLINICAL INFORMATION: 52 years Male; WALESKA RODARTE CALL [phone] Stroke symptoms (now resolved). TECHNIQUE: Routine CT head without contrast. All CT scans at this location are performed using CT dose reduction for ALARA by means of automated exposure control. COMPARISON: CT scan of the head and MR scan of the brain from 03/31/2019 were reviewed. FINDINGS: BRAIN / INTRACRANIAL CONTENTS: No intracerebral hemorrhage or stroke mimics Abnormal CT scan; weight shaped low-attenuation area in the left frontal lobe; anterior to left Broca's area; no hemorrhagic changes No acute hemorrhage, mass effect, midline shift, hydrocephalus. Subtle chronic ischemic changes in the left superior frontal gyrus No significant white matter abnormality. CRANIOCERVICAL JUNCTION: No significant abnormality. ORBITS: No significant abnormality of visualized orbits. SINUSES / MASTOIDS: No significant abnormality of the visualized paranasal sinuses or mastoid air cells. ADDITIONAL FINDINGS: None. IMPRESSION: Subacute nonhemorrhagic focal infarction in the left frontal lobe anterior to the Broca's area CTA NECK WITH CONTRAST HISTORY: Headaches; transient right-sided weakness; aphasia COMPARISON: CTA of the neck from 03/30/2019 TECHNIQUE: Routine CTA of the neck was performed. 3-D/MIP reformats were postprocessed. Percentage stenosis is determined by direct quantitative measurements of diseased internal carotid artery diameter compared with normal distal internal carotid artery reference segments or by criteria similar to NASCET where applicable.All CT scans at this location are performed using CT dose reduction for ALARA by means of automated exposure control CONTRAST: 100 ml of Omnipaque 350 FINDINGS: Aortic arch: No significant abnormality. Cervical vertebral arteries: Right vertebral artery is the dominant artery; left vertebral artery originates from aorta Common carotid arteries: No significant abnormality. Carotid: Normal bilaterally Cervical internal carotid arteries: No significant abnormality. Additional findings: None. IMPRESSION: 1. No significant abnormality. CTA HEAD WITH CONTRAST TECHNIQUE: Routine non-contrast CT Head, CTA of the head and post-contrast CT Head are performed. 3-D/MIP reformats postprocessed. All CT scans at this location are performed using CT dose reduction for ALARA by means of automated exposure control CONTRAST: 100 ml of Omnipaque 350 FINDINGS: CTA Head: Intracranial vertebral arteries: No significant abnormality. Basilar artery: No significant abnormality. Posterior cerebral arteries: No significant abnormality. Intracranial internal carotid arteries: No significant abnormality. Anterior cerebral arteries: No significant abnormality. Middle cerebral arteries: No significant abnormality. Branches of the left middle cerebral artery: Delayed circulation from convexity collateral in the Prefrontal branch of the left middle cerebral artery Dural venous sinuses:Not optimally opacified. No significant abnormality. Additional findings: None. IMPRESSION: No large vessel occlusion Prefrontal branch of left middle cerebral artery has delayed circulation - Medical Decision Making 52-year-old male with history of CVA, cocaine abuse, and PFO presents to the hospital with transient neurologic symptoms which have improved. CT shows findings of subacute ischemic stroke. CT angiogram head and neck did not show any signs of large vessel occlusion. Patient is outside of the window to receive tPA and does not require any large vessel stroke intervention. Symptoms likely triggered by recent cocaine use. Case discussed with neurologist emergently. Please refer to neurology note for recommendation. Patient received aspirin in the ED as well as Reglan and Benadryl for treatment for headache given history of migraines as per medical record case d/w Dr Rahman hospitalist for admission - Thrombolytic Inclusion/Exclusion Thrombolytic Exclusion Criteria: Symptom Onset > 3 Hours Critical Care Time: Yes Critical care time in (mins) excluding proc time.: 35 Critical care attestation.: If time is entered above; I have spent that time in minutes in the direct care of this critically ill patient, excluding procedure time. Critical Care Time: 35 Minutes of critical care time excluding procedures were used in the care of the patient. I came immediately to the bedside upon patient's arrival. . I discussed treatment plan with the nursing team members. I reviewed electronic record. I spoke with family to obtain medical history. Patient required multiple interventions and reassessments. Emergent neurology consultation obtained. ED Disposition Clinical Impression: Stroke, TIA (transient ischemic attack), Cocaine abuse, PFO (patent foramen ovale) Migraine headache Qualifiers: Intractability: not intractable Disposition: 09 ADMITTED INPATIENT Is pt being admited?: Yes Condition: Stable Time of Disposition: 19:32
--- NOTE | 2022-02-10 18:23 | Consultation ---
History of Present Illness Consult date: 02/10/22 History of present illness: [facility] Consult Note # Demographics Consult Type: Acute Stroke Level 2 (4.5-24 hrs) Patient Location: Emergency Room First Name: Lokesh Last Name: Min Cox Date of : 1970 Age: 52 Gender: Male Facility: [facility] Time of Initial Page ( Time): 02/10/2022, 18:03 Time of Return Call ( Time): 02/10/2022, 18:04 # HPI Chief Complaint: headache numbness weakness (generalized) Handedness: Right History: Patient reported headache, numbness, & unable to move around 5am. It reportedly lasted 1.5-2 hours. This is the reported third episode. Patient denied history of seizure disorder, loss of consciousness, unilateral convulsions, mouth trauma or sphincter incontinence. The ER Physician reported that the patient told her he used cocaine last evening. Last Known Normal: I have collected independent history specific to time last normal or last known well. We have collaborated with the provider and at this time, we have the most current timeline with the information that is available. 5am Duration: resolved hours Possible Thrombolytic candidate: not on warfarin or NOACs no intracranial hemorrhage history no recent major surgery Associated Symptoms: headache no light sensitivity no nausea no neck pain no sound sensitivity no vomiting # Scores Time of exam and NIHSS ( Time): 02/10/2022, 18:09 Level of Consciousness 1a: [0] = Alert; keenly responsive LOC Questions 1b: [0] = Answers both questions correctly LOC Commands 1c: [0] = Performs both tasks correctly Best Gaze 2: [0] = Normal Visual 3: [0] = No visual loss Facial Palsy 4: [0] = Normal symmetrical movements Motor Arm Left 5a: [0] = No drift Motor Arm Right 5b: [0] = No drift Motor Leg Left 6a: [0] = No drift Motor Leg Right 6b: [0] = No drift Limb Ataxia 7: [0] = Absent Sensory 8: [0] = Normal Best Language 9: [0] = No aphasia Dysarthria 10: [0] = Normal Extinction and Inattention 11: [0] = No abnormality NIHSS Total: 0 Modified [place] Scale (mRS) pre-stroke: [0] = No Symptoms Modified [place] Scale total: 0 VAN Screening: Negative # Exam Vitals: 98 SBP: 140 DBP: 95 Mental Status: awake alert and oriented x 3 follows commands Language: normal speech # ROS Pulmonary: no shortness of breath Cardiovascular: no chest pain # PMH-FH-SH Past Medical History: migraine stroke TIA Social History: smoker Medications: Trazodone Allergies: Nabuphine # Assessment Impression: Complex migraine versus stroke in the setting of substance misuse # Plan Thrombolytic/Intervention: NOT IV Thrombolysis or IA Intervention candidate Thrombolytic Exclusion (< 3 hour window): NIHSS = 0 Thrombolytic Exclusion: > 4.5 hours Intraarterial Exclusion: clinically not consistent with stroke Labs: B12 CBC comprehensive metabolic panel ESR hemoglobin A1c lipid panel thiamine troponin TSH urine drug screen ua Imaging: (urgency: STAT): CT Head without contrast CT Angiogram Head and CT Angiogram Neck AND call back with results if abnormal Imaging: (urgency: routine): MRI Brain without contrast Diagnostic Test: echo with bubble study Therapy/Evaluation: NPO until swallow evaluation PT/OT evaluation Medication: migraine cocktail: Toradol 30 mg IV + Benadryl 25 mg IV + antiemetic IV Continue outpatient medication regimen pending diagnostic results. DVT Prophylaxis: SCD chemical DVT prophylaxis Other: telemetry monitoring would not pursue stroke work-up if MRI is negative I have discussed my recommendations with the referring provider Additional Recommendations: Counseled tobacco cessation Psychiatry consultation for further evaluation & management given reported substance misuse Disposition: admit Medications and Allergies Allergies Allergy/AdvReac Type Severity Reaction Status Date / Time nalbuphine HCl [From Nubain] Allergy Intermediate Hives Verified 03/30/19 15:55 Home Medications Medication Instructions Recorded Confirmed Last Taken Type traZODone [Desyrel] 100 mg PO QHS 03/28/19 08/12/20 08/10/20 20:00 History Physical Examination - Vital Signs Vital Signs: Vital Signs Temp Pulse Resp BP Pulse Ox 98 F 98 H 16 140/95 95 02/10/22 17:41 02/10/22 17:41 02/10/22 17:41 02/10/22 17:41 02/10/22 17:41
--- NOTE | 2022-02-10 18:50 | Cat Scan Report ---
NONENHANCED CT SCAN OF THE HEAD: INDICATION / CLINICAL INFORMATION: 52 years Male; WALESKA RODARTE CALL [phone] Stroke symptoms (now resolved). TECHNIQUE: Routine CT head without contrast. All CT scans at this location are performed using CT dos e reduction for ALARA by means of automated exposure control. COMPARISON: CT scan of the head and MR scan of the brain from 03/31/2019 were reviewed. FINDINGS: BRAIN / INTRACRANIAL CONTENTS: No intracerebral hemorrhage or stroke mimics Abnormal CT scan; weight shaped low-attenuation area in the left frontal lobe; anterior to left Broca 's area; no hemorrhagic changes No acute hemorrhage, mass effect, midline shift, hydrocephalus. Subtle chronic ischemic changes in th e left superior frontal gyrus No significant white matter abnormality. CRANIOCERVICAL JUNCTION: No significant abnormality. ORBITS: No significant abnormality of visualized orbits. SINUSES / MASTOIDS: No significant abnormality of the visualized paranasal sinuses or mastoid air rio ls. ADDITIONAL FINDINGS: None. IMPRESSION: Subacute nonhemorrhagic focal infarction in the left frontal lobe anterior to the Broca's area Signer Name: Alisa Presley MD Signed: 02/10/2022 6:46 PM Workstation Name: [email or web address]
[2022-02-10 18:57] LABS: Basophils % (Auto) 0.3 % (0.0-1.8); Eosinophils # (Auto) 0.1 K/mm3 (0.0-0.4); Eosinophils % (Auto) 0.5 % (0.0-4.3); Hematocrit 44.1 % (35.5-45.6); Hemoglobin 14.5 gm/dl (11.8-15.2); Mean Corpuscular HGB Conc 33 % (32-34); Mean Corpuscular Volume 82 fl (84-94); Monocytes # (Auto) 0.9 K/mm3 (0.0-0.8); Monocytes % (Auto) 7.4 % (0.0-7.3); Platelet Count 275 K/mm3 (140-440); Red Blood Count 5.37 M/mm3 (3.65-5.03); Red Cell Distribution Width 14.3 % (13.2-15.2)
[2022-02-10 19:02] LABS: Creatine Kinase MB 1.4 ng/mL (0.0-4.0)
[2022-02-10 19:04] LABS: Alanine Aminotransferase 14 units/L (7-56); BUN/Creatinine Ratio 16; Blood Urea Nitrogen 13 mg/dL (9-20); Calcium 9.2 mg/dL (8.4-10.2); Hemolysis Index 17
[2022-02-10 19:08] LABS: INR 0.88 (0.87-1.13)
[2022-02-10 19:09] LABS: Partial Thromboplastin Time 27.3 Sec. (24.2-36.6); Thrombin Time 16.9 Sec. (15.1-19.6)
--- NOTE | 2022-02-10 19:22 | Cat Scan Report ---
CTA NECK WITH CONTRAST HISTORY: Headaches; transient right-sided weakness; aphasia COMPARISON: CTA of the neck from 03/30/2019 TECHNIQUE: Routine CTA of the neck was performed. 3-D/MIP reformats were postprocessed. Percentage s tenosis is determined by direct quantitative measurements of diseased internal carotid artery diamete r compared with normal distal internal carotid artery reference segments or by criteria similar to NA SCET where applicable.All CT scans at this location are performed using CT dose reduction for ALARA b y means of automated exposure control CONTRAST: 100 ml of Omnipaque 350 FINDINGS: Aortic arch: No significant abnormality. Cervical vertebral arteries: Right vertebral artery is the dominant artery; left vertebral artery mariano ginates from aorta Common carotid arteries: No significant abnormality. Carotid: Normal bilaterally Cervical internal carotid arteries: No significant abnormality. Additional findings: None. IMPRESSION: 1. No significant abnormality. CTA HEAD WITH CONTRAST TECHNIQUE: Routine non-contrast CT Head, CTA of the head and post-contrast CT Head are performed. 3-D /MIP reformats postprocessed. All CT scans at this location are performed using CT dose reduction for ALARA by means of automated exposure control CONTRAST: 100 ml of Omnipaque 350 FINDINGS: CTA Head: Intracranial vertebral arteries: No significant abnormality. Basilar artery: No significant abnormality. Posterior cerebral arteries: No significant abnormality. Intracranial internal carotid arteries: No significant abnormality. Anterior cerebral arteries: No significant abnormality. Middle cerebral arteries: No significant abnormality. Branches of the left middle cerebral artery: Delayed circulation from convexity collateral in the Pr efrontal branch of the left middle cerebral artery Dural venous sinuses:Not optimally opacified. No significant abnormality. Additional findings: None. IMPRESSION: No large vessel occlusion Prefrontal branch of left middle cerebral artery has delayed circulation Signer Name: Alisa Presley MD Signed: 02/10/2022 7:18 PM Workstation Name: [email or web address]
[2022-02-10] MEDS ORDERED: METOCLOPRAMIDE 10 MG/2 ML INJ IV ONE (19:31)
[2022-02-10] MEDS ORDERED: diphenhydrAMINE 50 MG/ML VIAL IV ONE (19:31)
[2022-02-10] MEDS ORDERED: ASPIRIN 325 MG TAB PO ONE (19:31)
--- NOTE | 2022-02-10 19:42 | History and Physical Report ---
History of Present Illness Chief complaint: I feel weak and my speech is slurred History of present illness: 52 YO Male with Migraine OSORIO, COPD, Lumbar Neuropathy, Nephrolithiasis, Sciatica, Scoliosis, GERD presents to ED for evaluation. Pt reports "I feel weak". Patient states that he was in his usual state of health at bedtime which was around 2100 hrs. Patient reports awakening from sleep this a.m. at 0500 hrs. and was found to have slurred speech and right-sided weakness. Patient states that he was unable to ambulate Due to right-sided weakness. Patient also acknowledges cocaine ingestion overnight. Patient also reports taking a sleeping pill prior to going to sleep. EMS was notified and upon arrival the patient was found to be in distress with a neurologic deficit that is new. A code stroke was called and the patient was transported to [facility] for further care and evaluation of the aforementioned symptoms. The patient was seen and evaluated in the emergency department. All lab and imaging studies reviewed. Patient found to have clinical symptoms consistent with CVA. Patient also found to have systemic inflammatory response syndrome. Patient admitted to medical floor and initiated on CVA protocol. Patient treated with empiric IV antibiotic therapy x1 dose. Patient denies fever, chills, chest pain, palpitation, productive cough, skin rash, recent contact, known exposure to COVID-19. Prior admission on 03/30/2019 reviewed. All medication listed at time of admission has been reconciled. Advanced care planning conducted in ED. Past History Past Medical History: migraines, stroke Past Surgical History: hernia repair, Other (Right foot surgery) Social history: single, other (Cocaine dependence). denies: smoking Family history: diabetes, hypertension Medications and Allergies Allergies Allergy/AdvReac Type Severity Reaction Status Date / Time nalbuphine HCl [From Nubain] Allergy Intermediate Hives Verified 03/30/19 15:55 Home Medications Medication Instructions Recorded Confirmed Last Taken Type traZODone [Desyrel] 100 mg PO QHS 03/28/19 08/12/20 08/10/20 20:00 History Review of Systems Constitutional: no weight loss, no weight gain, no chills Ears, nose, mouth and throat: no ear pain, no tinnitis, no decreased hearing, no nasal congestion, no nasal discharge Cardiovascular: no chest pain, no palpitations Respiratory: no cough, no cough with sputum, no shortness of breath, no dyspnea on exertion Gastrointestinal: no abdominal pain, no nausea, no vomiting, no change in bowel habits Genitourinary Male: no hematuria, no flank pain, no discharge, no urinary frequency, no urinary hesitancy Rectal: no pain, no incontinence, no bleeding Musculoskeletal: no neck stiffness, no neck pain, no shooting arm pain Integumentary: no rash, no pruritis, no redness, no wounds, no boils Neurological: weakness, ataxia, change in speech, gait dysfunction, motor disturbance Psychiatric: no anxiety, no change in sleep habits, no sleep disturbances, no insomnia Endocrine: no cold intolerance, no heat intolerance, no polydipsia, no nocturia, no flushing Allergic/Immunologic: no urticaria, no wheezing Exam - Constitutional Vitals: Temp Pulse Resp BP Pulse Ox 98 F 62 18 160/98 98 02/10/22 17:41 02/10/22 18:10 02/10/22 18:10 02/10/22 18:10 02/10/22 18:10 General appearance: Present: mild distress - EENT Eyes: Present: PERRL ENT: hearing intact, clear oral mucosa - Neck Neck: Present: supple, normal ROM - Respiratory Respiratory effort: normal Respiratory: bilateral: CTA - Cardiovascular Heart Sounds: Present: S1 & S2. Absent: rub, click - Extremities Extremities: pulses symmetrical, No edema Peripheral Pulses: within normal limits - Abdominal General gastrointestinal: Present: soft, non-tender, non-distended, normal bowel sounds Male genitourinary: Present: normal - Integumentary Integumentary: Present: clear, warm, dry - Musculoskeletal Musculoskeletal: right sided weakness - Psychiatric Psychiatric: appropriate mood/affect, intact judgment & insight - Neurologic Neurologic: CNII-XII intact, moves all extremities HEART Score - HEART Score Troponin: Troponin T < 0.010 ng/mL (0.00-0.029) 02/10/22 18:12 Results - Labs CBC & Chem 7: 02/10/22 18:12 02/10/22 18:12 Labs: Abnormal lab results 02/10/22 Range/Units 18:12 WBC 12.4 H (4.5-11.0) K/mm3 RBC 5.37 H (3.65-5.03) M/mm3 MCV 82 L (84-94) fl MCH 27 L (28-32) pg [place] % (Auto) 7.4 H (0.0-7.3) % [place] # (Auto) 0.9 H (0.0-0.8) K/mm3 Seg Neutrophils # 8.4 H (1.8-7.7) K/mm3 Assessment and Plan - Patient Problems (1) CVA (cerebral vascular accident) Status: Acute Plan to address problem: CVA protocol: CT head, neuro check, seizure precaution, aspiration precautions, lipid panel, statin therapy, antiplatelet therapy, carotid Doppler, echocardiogram, physical therapy consult, Occupational Therapy consulted, speech therapy consulted, treatment teleneurology consulted. (2) SIRS (systemic inflammatory response syndrome) Status: Acute Plan to address problem: CBC, chest x-ray, urinalysis, IV antibiotic therapy x1 dose. (3) Cocaine abuse Status: Acute Plan to address problem: Patient counseled regarding outpatient drug dependence counseling. (4) Migraine headache Status: Acute Qualifiers: Intractability: not intractable Plan to address problem: No acute exacerbation at this time, continue medical management. (5) COPD (chronic obstructive pulmonary disease) Status: Acute Plan to address problem: No acute exacerbation at this time, continue medical management. Supplemental oxygen as clinically indicated. (6) GERD (gastroesophageal reflux disease) Status: Acute Qualifiers: Esophagitis presence: without esophagitis Qualified Code(s): K21.9 - Gastro-esophageal reflux disease without esophagitis Plan to address problem: PPI therapy, supportive therapy (7) DVT prophylaxis Status: Acute Plan to address problem: SCD to bilateral lower extremities while in bed, patient is ambulatory (8) Advance care planning Status: Acute Plan to address problem: Disease education conducted, care plan discussed, diagnoses discussed, prognosis discussed, patient is full code. Patient knowledges understanding agree with care plan, +30 minutes. (9) Preventative health care Status: Acute Plan to address problem: Patient counseled regarding drug dependence counseling as outpatient, balanced diet, outpatient follow-up with primary care physician for all age and risk factor appropriate screening test. +30 minutes.
[2022-02-10] MEDS ORDERED: PROMETHAZINE 25 MG RECT SUPP PR PRN (20:00)
[2022-02-10] MEDS ORDERED: HYDROmorphone 0.5 MG/0.5 ML INJ IV PRN (20:00)
[2022-02-10] MEDS ORDERED: ACETAMINOPHEN 325 MG TAB PO PRN (20:00)
[2022-02-10] MEDS ORDERED: MAGNESIUM HYDROXIDE (MOM) ORAL LIQD UDC PO PRN (20:00)
[2022-02-10] MEDS ORDERED: METOCLOPRAMIDE 10 MG TAB PO PRN (20:00)
[2022-02-10] MEDS ORDERED: ONDANSETRON 4 MG/2 ML INJ IV PRN (20:00)
[2022-02-10] MEDS ORDERED: oxyCODONE /ACETAMINOPHEN 5-325MG TAB PO PRN (20:00)
[2022-02-10] MEDS ORDERED: traZODone 100 MG TAB PO SCH (22:00)
[2022-02-11] MEDS ORDERED: ASPIRIN 325 MG TAB PO SCH (10:00)
[2022-02-11 11:03] LABS: Amphetamine Screen,Urine Negative; Benzodiazepines Screen,Urine Negative; Cannabinoid Screen,Urine Negative; Methadone Screen,Urine Negative; Opiate Screen,Urine Negative
[2022-02-11 11:15] LABS: Cocaine Screen,Urine Positive
[2022-02-11 11:34] LABS: Bilirubin,Urine Negative (Negative); Blood,Urine Negative (Negative); Color,Urine Yellow (Yellow); Protein,Urine <15 mg/dL mg/dL (Negative)
[2022-02-11 11:47] LABS: Mucus,Urine FEW /HPF; WBC,Urine < 1.0 /HPF (0.0-6.0)
[2022-02-11 12:49] VITALS: BP 125/82
--- NOTE | 2022-02-11 13:02 | Vascular Lab Report ---
DUPLEX DOPPLER ULTRASOUND CAROTID, BILATERAL INDICATION / CLINICAL INFORMATION: stroke. COMPARISON: CTA neck performed yesterday. FINDINGS: RIGHT CAROTID: No significant atherosclerotic plaque. - PLAQUE ESTIMATE (%): None. - CCA velocity: 76 cm/sec. - ICA peak systolic velocity: 111 cm/sec. - ICA/CCA PSV Ratio: Less than 2. Right Vertebral Artery: Antegrade flow. LEFT CAROTID: No significant atherosclerotic plaque. - PLAQUE ESTIMATE (%): None. - CCA velocity: 82 cm/sec. - ICA peak systolic velocity: 113 cm/sec. - ICA/CCA PSV Ratio: Less than 2. Left Vertebral Artery: Antegrade flow. IMPRESSION: 1. Right Internal Carotid Artery: Normal. No stenosis. 2. Left Internal Carotid Artery: Normal. No stenosis. Velocity criteria are extrapolated from diameter data as defined by the Society of Radiologists in [facility] Consensus Conference, Radiology 2003; 229;340-346. NO STENOSIS (NORMAL) - Plaque = none; ICA PSV < 125 cm/sec; ICA/CCA PSV Ratio < 2.0 <50% STENOSIS - Plaque < 50%; ICA PSV < 125 cm/sec; ICA/CCA PSV Ratio < 2.0 50-69% STENOSIS - Plaque > 50%; ICA PSV = 125-230 cm/sec; ICA/CCA PSV Ratio = 2.0-4.0 >70% BUT <100% STENOSIS - Plaque > 50%; ICA PSV > 230 cm/sec; ICA/CCA PSV Ratio > 4.0 NEAR OCCLUSION - Plaque = visible lumen; ICA PSV = high/low/none; ICA/CCA PSV Ratio = variable TOTAL OCCLUSION - Plaque = no lumen; ICA PSV = none; ICA/CCA PSV Ratio = N/A Scribed by: Morelia Del Rio RDMS, RVT, RMSKS Scribed: 02/11/2022 11:34 AM I have reviewed the images, agree with this report, and edited this report as needed. Signer Name: Amrik Walker MD Signed: 02/11/2022 12:57 PM Workstation Name: [employer]
--- NOTE | 2022-02-12 07:55 | Discharge Summary ---
Providers - Providers Date of Admission: 02/10/22 19:48 Date of discharge: 02/11/22 Attending physician: LINDA WILKERSON 02/10/22 19:48 Occupational Therapy Evaluate and Treat [CONS] Routine Comment: Reason For Exam: Neuro deficits Physical Therapy Evaluation and Treat [CONS] Routine Comment: Reason For Exam: Neuro deficits Primary care physician: SIDNEY NAVARRO Hospitalization Condition: Stable Hospital course: 52 YO Male with Migraine OSORIO, COPD, Lumbar Neuropathy, Nephrolithiasis, Sciatica, Scoliosis, GERD presents to ED for evaluation. Pt reports "I feel weak". Patient states that he was in his usual state of health at bedtime which was around 2100 hrs. Patient reports awakening from sleep this a.m. at 0500 hrs. and was found to have slurred speech and right-sided weakness. Patient states that he was unable to ambulate Due to right-sided weakness. Patient also acknowledges cocaine ingestion overnight. Patient also reports taking a sleeping pill prior to going to sleep. EMS was notified and upon arrival the patient was found to be in distress with a neurologic deficit that is new. A code stroke was called and the patient was transported to [facility] for further care and evaluation of the aforementioned symptoms. The patient was seen and evaluated in the emergency department. All lab and imaging studies reviewed. Patient found to have clinical symptoms consistent with CVA. Patient also found to have systemic inflammatory response syndrome. Patient admitted to medical floor and initiated on CVA protocol. Patient treated with empiric IV antibiotic therapy x1 dose. Patient denies fever, chills, chest pain, palpitation, productive cough, skin rash, recent contact, known exposure to COVID-19. Prior admission on 03/30/2019 reviewed. All medication listed at time of admission has been reconciled. Advanced care planning conducted in ED. (1) CVA (cerebral vascular accident) Status: Acute Plan to address problem: Able to move all 4 extremities and able to walk normally CVA unlikely Possible TIA Patient wants to leave home (2) SIRS (systemic inflammatory response syndrome) Status: Acute Plan to address problem: CBC, chest x-ray, urinalysis, IV antibiotic therapy x1 dose. (3) Cocaine abuse Status: Acute Plan to address problem: Patient counseled regarding outpatient drug dependence counseling. (4) Migraine headache Status: Acute Qualifiers: Intractability: not intractable Plan to address problem: No acute exacerbation at this time, continue medical management. (5) COPD (chronic obstructive pulmonary disease) Status: Acute Plan to address problem: No acute exacerbation at this time, continue medical management. Supplemental oxygen as clinically indicated. (6) GERD (gastroesophageal reflux disease) Status: Acute Qualifiers: Esophagitis presence: without esophagitis Qualified Code(s): K21.9 - Gastro-esophageal reflux disease without esophagitis Plan to address problem: PPI therapy, supportive therapy (7) DVT prophylaxis Status: Acute Plan to address problem: SCD to bilateral lower extremities while in bed, patient is ambulatory (8) Advance care planning Status: Acute Plan to address problem: Disease education conducted, care plan discussed, diagnoses discussed, prognosis discussed, patient is full code. Patient knowledges understanding agree with care plan, +30 minutes. (9) Preventative health care Status: Acute Plan to address problem: Patient counseled regarding drug dependence counseling as outpatient, balanced diet, outpatient follow-up with primary care physician for all age and risk factor appropriate screening test. +30 minutes. Disposition: 01 HOME / SELF CARE / HOMELESS Final Discharge Diagnosis (Prints w/discharge instructions): TIA. Hypertension Time spent for discharge: 30 minutes Core Measure Documentation - Palliative Care Palliative Care/ Comfort Measures: Not Applicable - Core Measures Any of the following diagnoses?: none Exam - Constitutional Vitals: Temp Pulse Resp BP Pulse Ox 98.2 F 65 18 125/82 98 02/11/22 12:41 02/11/22 12:41 02/11/22 12:41 02/11/22 12:41 02/11/22 13:40 General appearance: Present: no acute distress, well-nourished - EENT Eyes: Present: PERRL ENT: hearing intact, clear oral mucosa - Neck Neck: Present: supple, normal ROM - Respiratory Respiratory effort: normal Respiratory: bilateral: CTA - Cardiovascular Heart rate: 78 Rhythm: regular Heart Sounds: Present: S1 & S2. Absent: rub, click - Extremities Extremities: pulses symmetrical, No edema Peripheral Pulses: within normal limits - Abdominal General gastrointestinal: Present: soft, non-tender, non-distended, normal bowel sounds Male genitourinary: Present: normal - Integumentary Integumentary: Present: clear, warm, dry - Musculoskeletal Musculoskeletal: gait normal, strength equal bilaterally - Psychiatric Psychiatric: appropriate mood/affect, intact judgment & insight - Neurologic Neurologic: CNII-XII intact, moves all extremities Plan Activity: no restrictions Diet: low salt Follow up with: SIDNEY NAVARRO MD [Primary Care Provider] - 3-5 Days Prescriptions: Aspirin 325 mg PO QDAY #30 tablet traZODone [Desyrel] 100 mg PO QHS 30 Days #30 tablet AtorvaSTATin [Lipitor] 40 mg PO QHS #30 tablet oxyCODONE /ACETAMINOPHEN [Percocet 5/325 mg] 1 tab PO Q16H PRN #12 tablet PRN Reason: Pain, Moderate (4-6)
--- NOTE | 2022-02-12 12:04 | Electrocardiograph Report ---
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
== END 2022-02-11 15:22 | disposition home or self-care (01) | DRG 69 ==
LOC: ED 17:30 → 3A 19:48
PROVIDERS: ADMIT Internal Medicine; ATTEND Internal Medicine
DX: G45.9 Transient cerebral ischemic attack, unspecified (principal); R65.10 Systemic inflammatory response syndrome (SIRS) of non-infectious origin without acute organ dysfunction; Q21.1 Atrial septal defect; F14.10 Cocaine abuse, uncomplicated; K21.9 Gastro-esophageal reflux disease without esophagitis; M54.30 Sciatica, unspecified side; M41.9 Scoliosis, unspecified; M19.90 Unspecified osteoarthritis, unspecified site; I10 Essential (primary) hypertension; G43.909 Migraine, unspecified, not intractable, without status migrainosus; J44.9 Chronic obstructive pulmonary disease, unspecified; G54.1 Lumbosacral plexus disorders; F17.200 Nicotine dependence, unspecified, uncomplicated; Z83.3 Family history of diabetes mellitus; Z82.49 Family history of ischemic heart disease and other diseases of the circulatory system
CPT/HCPCS: 36415; 70450; 70496; 70498; 80053; 80307; 80320; 81001; 82550; 82553; 82962; 84484; 85025; 85610; 85670; 85730; 93005; 93306; 93880; G0378; C8929; G0480; J1200; J1956; J2765; Q9967